=== PATIENT | female | born 1960 | race Caucasian/White ===

== ENCOUNTER 2022-02-07 00:58 | Emergency (ER) | payer MEDICARE, OTHER, SELFPAY ==
[2022-02-07 01:12] VITALS: BP 127/74; PULSE 60; RESP 18; TEMP 36.8; O2SAT 96
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
[2022-02-07] MEDS: GABAPENTIN 100 MG CAPSULE 200 MG PO (01:55)
== END 2022-02-07 02:16 | disposition home or self-care (01) ==
PROVIDERS: Emergency Provider Family Medicine; PCP Family Medicine
DX: M54.59 Other low back pain (principal); M79.605 Pain in left leg
CPT/HCPCS: 99283; 99284; A9270

== ENCOUNTER 2022-03-03 01:41 | Emergency (ER) | payer MEDICARE, OTHER, SELFPAY ==
[2022-03-03 01:49] VITALS: BP 113/72; PULSE 60; RESP 16; TEMP 35.7; O2SAT 96
[2022-03-03 02:52] LABS: Appearance Urine Slightly Cloudy (Clear); Bilirubin Urine Negative (Negative); Blood Urine 1+ (Negative); Color Urine Yellow (Yellow); Glucose Urine Negative (Negative); Ketones Urine Negative (Negative); Leukocyte Esterase Urine 1+ (Negative); Nitrite Urine Positive (Negative); Protein Urine Negative (Negative); Specific Gravity Urine 1.015 (1.000-1.030); Urobilinogen Urine 0.2 (0.2-1.0)
[2022-03-03 03:01] LABS: Amorphous Sediment Urine Few; Bacteria Urine Many; Mucus Urine Few; Squamous Epithelial Cell Urine Moderate (None-Few); WBC Urine 25-50 (0-5)
[2022-03-03 03:06] VITALS: BP 131/64; PULSE 62; RESP 16; O2SAT 98
--- NOTE | 2022-03-03 03:09 | ED.FEMALEGU ---
HPI - Female Genitourinary General Time Seen by Provider: 02:00 Date Seen: 03/03/22 Chief complaint: Flank Pain Stated complaint: possible UTI Time Seen by Provider: 03/03/22 02:11 Source: patient, RN notes reviewed and old records reviewed Mode of arrival: ambulatory Limitations: no limitations History of Present Illness HPI Narrative: Oma is a very pleasant 61-year-old a history of chronic pain on multiple pain medications who comes to the emergency room for evaluation regarding dysuria. Patient had he has had multiple UTIs in the past but not any for quite some time. For the past few days she has noticed that there has been a burning sensation when she urinates. Head is it has been coming and going. However yesterday it became fairly constant and is now radiating into both sides of her lower back. She has not had fever or chills and denies vomiting or nausea. She states that yesterday she started on AZO and felt that it really helped. But overnight she now has increasing symptoms. MD elicited complaint: dysuria Related Data Home Medications Medication Instructions Recorded Confirmed amitriptyline 10 mg tablet 20 mg PO DAILY 02/07/22 02/07/22 amlodipine 2.5 mg tablet 2.5 mg PO DAILY 02/07/22 02/07/22 buspirone 15 mg tablet 15 mg PO BID 02/07/22 02/07/22 clonazepam 0.5 mg tablet 0.5 mg PO HS 02/07/22 02/07/22 fentanyl 12 mcg/hr transdermal 1 patch transdermal Q72H 02/07/22 02/07/22 patch fentanyl 25 mcg/hr transdermal 1 patch transdermal Q72H 02/07/22 02/07/22 patch ferrous sulfate 325 mg (65 mg 325 mg PO DAILY 02/07/22 02/07/22 iron) tablet,delayed release gabapentin 100 mg capsule 100 mg PO HS 02/07/22 02/07/22 hydrocodone 5 mg-acetaminophen 325 1 tab PO Q6H PRN 02/07/22 02/07/22 mg tablet omeprazole 20 mg capsule,delayed 20 mg PO DAILY 02/07/22 02/07/22 release pramipexole 0.5 mg tablet 0.5 mg PO HS 02/07/22 02/07/22 sertraline 100 mg tablet 200 mg PO DAILY 02/07/22 02/07/22 Allergies Allergy/AdvReac Type Severity Reaction Status Date / Time erythromycin base AdvReac Mild Verified 02/07/22 01:18 [facility] Medical History (Updated 03/03/22 @ 03:01 by Stephanie Rich MD) Anxiety Chronic constipation Chronic fatigue Dog bite Fibromyalgia syndrome GERD (gastroesophageal reflux disease) MDD (major depressive disorder) Musculoskeletal back pain Musculoskeletal pain Obstructive sleep apnea Panic attack RLS (restless legs syndrome) Shoulder pain Surgical History (Updated 02/07/22 @ 02:10 by Roula Miller RN) H/O vaginal hysterectomy S/P cervical spinal fusion Social History Smoking Status: Never smoker Do you use any of these nicotine containing products: None Second hand tobacco smoke exposure: No Non-prescribed substance use: denies use Exam Const: Vital Signs, click to edit/add: Vital Signs - 24 hr 03/03/22 01:49 03/03/22 03:06 Temperature 96.2 F L Pulse Rate [Right Pulse Oximeter] 60 62 Respiratory Rate 16 16 Blood Pressure [Le ft Upper Arm] 113/72 131/64 Pulse Oximetry 96 98 Oxygen Delivery Me thod Room Air Room Air Documenting provider has reviewed patient's vital signs: yes Common normals: no apparent distress, average body habitus, oriented x3, no limitations and healthy appearing HENMT: Common normals: normocephalic Head and scalp: normocephalic Eye: General eye: normal appearance of both eyes Neck & C-Spine: Common normals: full ROM Resp: Common normals: normal respiratory effort and clear to auscultation bilaterally Effort & inspection: able to speak in complete sentences Auscultation: clear to auscultation bilaterally Cardio: Common normals: regular rate and regular rhythm Rate: regular rate Rhythm: regular rhythm GI: Common normals: soft to palpation and non-tender Palpation: soft : Common normals: no CVA tenderness Bladder/kidney exam: no CVA tenderness Back & Pelvis: Common normals: no CVA tenderness Extremity: Common normals: normal to inspection Neuro: Common normals: oriented x3 Psych: Common normals: mental status grossly normal Course Course Hospital Course: At this time patient does not appear to be toxic. Recommending urinalysis with appropriate antibiotic treatment if needed. Reevaluation(s) Reevaluation #1: Discussed with patient that urinalysis is positive for urinary tract infection and I would like to treat her with antibiotics. She is currently on probiotics and I suggest she continue taking those. Vital Signs Vital signs: Initial Vital Signs Temperature 96.2 F L 03/03/22 01:49 Temperature Source Temporal Artery Scan 03/03/22 01:49 Pulse Rate 60 03/03/22 01:49 Pulse Rhythm 03/03/22 01:49 Respiratory Rate 16 03/03/22 01:49 Blood Pressure 113/72 03/03/22 01:49 Blood Pressure Mean 85 03/03/22 01:49 Blood Pressure Position Semi-Fowlers 03/03/22 01:49 Pulse Oximetry 96 03/03/22 01:49 Oxygen Delivery Method 03/03/22 01:49 Vital Signs Temperature 96.2 F L 03/03/22 01:49 Pulse Rate 60 03/03/22 01:49 Respiratory Rate 16 03/03/22 01:49 Blood Pressure 113/72 03/03/22 01:49 Pulse Oximetry 96 03/03/22 01:49 Oxygen Delivery Method 03/03/22 01:49 Temperature 96.2 F L 03/03/22 01:49 Pulse Rate 62 03/03/22 03:06 Respiratory Rate 16 03/03/22 03:06 Blood Pressure 131/64 03/03/22 03:06 Pulse Oximetry 98 03/03/22 03:06 Oxygen Delivery Method 03/03/22 03:06 MDM - Female Genitourinary MDM Narrative Medical decision making narrative: 1. Urinary tract infection-patient will be treated with Macrobid 100 mg p.o. b.i.d. x5 days. This was given through our [employer] machine. Recommend pushing fluids to flush urinary tract. Return to the emergency room for vomiting, fever, worsening symptoms. Await urine culture to ensure appropriate antibiotic selection. 2. Disposition-home this evening. Follow-up as needed. Medical Records Attestation: I reviewed the patient's medical records. Lab Data Attestation: I reviewed the patient's lab results. Labs: Lab Results 03/03/22 Range/Units 02:45 Urine Color Yellow (Yellow) Urine Appearance Slightly Cloudy A (Clear) Urine pH 6.0 (5.0-8.5) Ur Specific [place] 1.015 (1.000-1.030) Urine Protein Negative (Negative) Urine Glucose (UA) Negative (Negative) Urine Ketones Negative (Negative) Urine Blood 1+ A (Negative) Urine Nitrite Positive A (Negative) Urine Bilirubin Negative (Negative) Urine Urobilinogen 0.2 (0.2-1.0) Ur Leukocyte Esterase 1+ A (Negative) Urine RBC 2-5 A (0-2) Urine WBC 25-50 A (0-5) Ur Squamous Epith Cells Moderate A (None-Few) Amorphous Sediment Few A (None) Urine Bacteria Many A (None) Urine Mucus Few A (None) Discharge Plan Discharge Clinical Impression: UTI (urinary tract infection) Patient Disposition: Home, Self-Care Condition: Unchanged Additional Instructions: Start Macrobid tonight and continue for 5 days. Push fluids to ensure that your flushing the urinary system. Return to the emergency room for fever, vomiting or worsening symptoms. If the culture grows out something that is not susceptible or killed by Macrobid we will call you and change her antibiotic. Prescriptions: No Action hydrocodone-acetaminophen 5-325 mg tablet 1 tab PO Q6H PRN Label Comments: TAKE ONE TABLET BY MOUTH EVERY FOUR TO SIX HOURS NEEDED FOR CHRONIC PAIN. DO NOT EXCEED 3 TABLETS IN 24 HOURS; must last 30 days. USE DAE clonazepam 0.5 mg tablet 0.5 mg PO HS Label Comments: TAKE ONE TABLET BY MOUTH ONE TIME DAILY AT BEDTIME sertraline 100 mg tablet 200 mg PO DAILY Label Comments: TAKE TWO TABLETS BY MOUTH DAILY IN THE MORNING amlodipine 2.5 mg tablet 2.5 mg PO DAILY pramipexole 0.5 mg tablet 0.5 mg PO HS Label Comments: TAKE ONE TABLET BY MOUTH ONE TIME DAILY AT BEDTIME amitriptyline 10 mg tablet 20 mg PO DAILY Label Comments: TAKE TWO TABLETS BY MOUTH DAILY omeprazole 20 mg capsule,delayed release(DR/EC) 20 mg PO DAILY Label Comments: Take 1 Capsule (20 mg) by mouth once daily before a meal gabapentin 100 mg capsule 100 mg PO HS Label Comments: TAKE ONE CAPSULE BY MOUTH ONE TIME DAILY AT BEDTIME fentanyl 25 mcg/hr patch 72 hour 1 patch transdermal Q72H Label Comments: Apply 1 Patch on dry, clean, hairless skin every 72 hours. Use dates 01/17/2022-02/15/2022 ferrous sulfate 325 mg (65 mg iron) tablet,delayed release (DR/EC) 325 mg PO DAILY Label Comments: Take 1 Tablet (325 mg) by mouth once daily. buspirone 15 mg tablet 15 mg PO BID Label Comments: TAKE 1.5 TABLETS TWICE A DAY. fentanyl 12 mcg/hr patch 72 hour 1 patch transdermal Q72H Label Comments: APPLY 1 PATCH BY TRANSDERMAL ROUTE AND CHANGE EVERY 72 HOURS. USE DATES: 01/17/22-02/15/22 Follow Up/Referrals: Geno Mendoza DO [Primary Care Provider] - Stand Alone Forms: [facility] Info Instructions
== END 2022-03-03 03:08 | disposition home or self-care (01) ==
PROVIDERS: Emergency Provider Family Medicine; PCP Family Medicine
DX: N39.0 Urinary tract infection, site not specified (principal)
CPT/HCPCS: 81003; 81015; 87086; 87186; 99282; 99283; 99284

== ENCOUNTER 2022-04-09 16:06 | Emergency (ER) | payer MEDICARE, OTHER, SELFPAY ==
[2022-04-09 16:11] VITALS: BP 140/79; PULSE 95; RESP 16; TEMP 37.2; O2SAT 97; BMI 23.8
--- NOTE | 2022-04-09 16:34 | ED.SKABFB ---
HPI - Skin/Abscess/Foreign Bdy General Chief complaint: Skin/Abscess/Foreign Body Stated complaint: Boil on buttocks Time Seen by Provider: 04/09/22 16:16 History of Present Illness HPI narrative: This 61-year-old female comes in reporting some suspicion of an abscess or boil in the right upper buttock. These symptoms started a day or 2 ago. She states that there is a little bit of abdon colored drainage. She states that it is starting to have some pain but there is also and itchy or pruritic component to this area also. Related Data Home Medications Medication Instructions Recorded Confirmed amitriptyline 10 mg tablet 20 mg PO DAILY 02/07/22 02/07/22 amlodipine 2.5 mg tablet 2.5 mg PO DAILY 02/07/22 02/07/22 buspirone 15 mg tablet 15 mg PO BID 02/07/22 02/07/22 clonazepam 0.5 mg tablet 0.5 mg PO HS 02/07/22 02/07/22 fentanyl 12 mcg/hr transdermal 1 patch transdermal Q72H 02/07/22 02/07/22 patch fentanyl 25 mcg/hr transdermal 1 patch transdermal Q72H 02/07/22 02/07/22 patch ferrous sulfate 325 mg (65 mg 325 mg PO DAILY 02/07/22 02/07/22 iron) tablet,delayed release gabapentin 100 mg capsule 100 mg PO HS 02/07/22 02/07/22 hydrocodone 5 mg-acetaminophen 325 1 tab PO Q6H PRN 02/07/22 02/07/22 mg tablet omeprazole 20 mg capsule,delayed 20 mg PO DAILY 02/07/22 02/07/22 release pramipexole 0.5 mg tablet 0.5 mg PO HS 02/07/22 02/07/22 sertraline 100 mg tablet 200 mg PO DAILY 02/07/22 02/07/22 Previous Rx's Medication Instructions Recorded valacyclovir 1 gram tablet 1,000 mg PO TID #30 tabs 04/09/22 (Valtrex) Allergies Allergy/AdvReac Type Severity Reaction Status Date / Time erythromycin base AdvReac Mild Verified 02/07/22 01:18 Review of Systems Status of ROS: Reports: 10 or more systems reviewed and unremarkable except as noted in History and below Narrative: Constitutional: No fevers, no weight gain or loss. Eyes: No discharge. No vision changes. HENT: No congestion, no sore throat, no ear pain. Cardiovascular: No chest pain, no palpitations. Respiratory: No shortness of breath, no wheezes, no cough. Gastrointestinal: No abdominal pain, no vomiting, no diarrhea. Genitourinary: No dysuria, no hematuria. Musculoskeletal: Normal range of motion. Skin: Boil or abscess in the right upper mid buttock. Neurological: No dizziness, weakness, sensory change, speech change. Endo/Heme/Allergies: No bruising or bleeding. No polydipsia. Pysch: no suicidality, no anxiety, no insomnia. All other systems reviewed and are negative. [facility] Medical History (Updated 04/09/22 @ 16:40 by Bruno Dominguez MD) Anxiety Chronic constipation Chronic fatigue Dog bite Fibromyalgia syndrome GERD (gastroesophageal reflux disease) MDD (major depressive disorder) Musculoskeletal back pain Musculoskeletal pain Obstructive sleep apnea Panic attack RLS (restless legs syndrome) Shoulder pain Surgical History (Updated 02/07/22 @ 02:10 by Roula Miller RN) H/O vaginal hysterectomy S/P cervical spinal fusion Social History Smoking Status: Never smoker Do you use any of these nicotine containing products: None Second hand tobacco smoke exposure: No Non-prescribed substance use: denies use Exam Narrative: Exam Narrative: Constitutional: Well-developed, well-nourished, no acute distress. HEENT: Normocephalic, atraumatic. Neck: Normal range of motion. Nontender. Supple. Heart: Intact distal pulses. Lungs: No chest discomfort. No wheezes, rhonchi, or rales. Abdomen: Nontender. Back: Normal range of motion. Extremities: Normal range of motion. No injury. Skin: Just right of midline in the right upper buttock his some area of erythema with 3 or 4 spots with what may be come an ulceration or was a vesicular lesion that erupted. There is no palpable abscess. There is surrounding erythema. Neurologic: No altered sensation. No weakness. Alert and oriented. Psychiatric: No suicidality. No anxiety or depression. No insomnia. Nursing notes and vitals signs are reviewed. Const: Vital Signs, click to edit/add: Vital Signs - 24 hr 04/09/22 16:11 Temperature 98.9 F Pulse Rate [Left P ulse Oximeter] 95 Respiratory Rate 16 Blood Pressure [Ri ght Upper Arm] 140/79 H Pulse Oximetry 97 Oxygen Delivery Me thod Room Air Course Vital Signs Vital signs: Initial Vital Signs Temperature 98.9 F 04/09/22 16:11 Temperature Source Temporal Artery Scan 04/09/22 16:11 Pulse Rate 95 04/09/22 16:11 Pulse Rhythm 04/09/22 16:11 Pulse Strength 3+ Normal 04/09/22 16:11 Respiratory Rate 16 04/09/22 16:11 Blood Pressure 140/79 H 04/09/22 16:11 Blood Pressure Mean 99 04/09/22 16:11 Blood Pressure Position Sitting 04/09/22 16:11 Pulse Oximetry 97 04/09/22 16:11 Oxygen Delivery Method 04/09/22 16:11 Vital Signs Temperature 98.9 F 04/09/22 16:11 Pulse Rate 95 04/09/22 16:11 Respiratory Rate 16 04/09/22 16:11 Blood Pressure 140/79 H 04/09/22 16:11 Pulse Oximetry 97 04/09/22 16:11 Oxygen Delivery Method 04/09/22 16:11 Temperature 98.9 F 04/09/22 16:11 Pulse Rate 95 04/09/22 16:11 Respiratory Rate 16 04/09/22 16:11 Blood Pressure 140/79 H 04/09/22 16:11 Pulse Oximetry 97 04/09/22 16:11 Oxygen Delivery Method 04/09/22 16:11 MDM - Skin/Abscess/Foreign Bdy MDM Narrative Medical decision making narrative: This patient comes in with a lesion in her right buttock as described above. On exam it does not appear to be an abscess or boil. It actually is more suspicious for shingles. There are several lesions that are surrounded by erythema. These areas look to have drained and were possibly vesicles at 1 point. There is no drainable abscess. The patient states that this has a pruritic component to it and seems to be more likely herpes zoster. The patient received a prescription for Valtrex. I stated that symptoms may become more clear as to what is causing this reaction but for now it seems more likely to be a viral lesion from shingles. She is advised to follow-up with her primary physician or return here if worsening symptoms occur. Discharge Plan Discharge Clinical Impression: Godwin Patient Disposition: Home, Self-Care Condition: Stable Additional Instructions: Take medication as prescribed. Follow up with MD if not improving or worsening symptoms happen. Prescriptions: New valacyclovir [Valtrex] 1 gram tablet 1,000 mg PO TID Qty: 30 2RF No Action hydrocodone-acetaminophen 5-325 mg tablet 1 tab PO Q6H PRN Label Comments: TAKE ONE TABLET BY MOUTH EVERY FOUR TO SIX HOURS NEEDED FOR CHRONIC PAIN. DO NOT EXCEED 3 TABLETS IN 24 HOURS; must last 30 days. USE DAE clonazepam 0.5 mg tablet 0.5 mg PO HS Label Comments: TAKE ONE TABLET BY MOUTH ONE TIME DAILY AT BEDTIME sertraline 100 mg tablet 200 mg PO DAILY Label Comments: TAKE TWO TABLETS BY MOUTH DAILY IN THE MORNING amlodipine 2.5 mg tablet 2.5 mg PO DAILY pramipexole 0.5 mg tablet 0.5 mg PO HS Label Comments: TAKE ONE TABLET BY MOUTH ONE TIME DAILY AT BEDTIME amitriptyline 10 mg tablet 20 mg PO DAILY Label Comments: TAKE TWO TABLETS BY MOUTH DAILY omeprazole 20 mg capsule,delayed release(DR/EC) 20 mg PO DAILY Label Comments: Take 1 Capsule (20 mg) by mouth once daily before a meal gabapentin 100 mg capsule 100 mg PO HS Label Comments: TAKE ONE CAPSULE BY MOUTH ONE TIME DAILY AT BEDTIME fentanyl 25 mcg/hr patch 72 hour 1 patch transdermal Q72H Label Comments: Apply 1 Patch on dry, clean, hairless skin every 72 hours. Use dates 01/17/2022-02/15/2022 ferrous sulfate 325 mg (65 mg iron) tablet,delayed release (DR/EC) 325 mg PO DAILY Label Comments: Take 1 Tablet (325 mg) by mouth once daily. buspirone 15 mg tablet 15 mg PO BID Label Comments: TAKE 1.5 TABLETS TWICE A DAY. fentanyl 12 mcg/hr patch 72 hour 1 patch transdermal Q72H Label Comments: APPLY 1 PATCH BY TRANSDERMAL ROUTE AND CHANGE EVERY 72 HOURS. USE DATES: 01/17/22-02/15/22 Follow Up/Referrals: Geno Mendoza DO [Primary Care Provider] - Stand Alone Forms: [facility] Info Instructions
== END 2022-04-09 16:55 | disposition home or self-care (01) ==
LOC: ED 16:51
PROVIDERS: Emergency Provider Emergency Medicine Emergency Medical Services; PCP Family Medicine
DX: B02.9 Zoster without complications (principal)
CPT/HCPCS: 99284

== ENCOUNTER 2022-04-19 15:01 | Emergency (ER) | payer MEDICARE, OTHER, SELFPAY ==
[2022-04-19 15:15] VITALS: BP 140/73; PULSE 99; RESP 18; TEMP 36.8; O2SAT 95; BMI 26.5
--- NOTE | 2022-04-19 16:01 | ED_ITS ---
HPI - General Adult General Time Seen by Provider: 16:01 Date Seen: 04/19/22 Chief complaint: Lower Extremity Swelling Stated complaint: Burning leg pain, swelling Time Seen by Provider: 04/19/22 15:58 Source: patient, RN notes reviewed and old records reviewed History of Present Illness HPI narrative: 61-year-old female who comes in today with bilateral foot swelling which she noticed today. She does not have any pain. She recently was diagnosed with shingles shingles and says that is better, she also had a shot. She denies chest pain or shortness of breath. She notes that she does get some swelling in her feet during the course the day but is today than she has noted in the past. She denies any leg pain, no current new medications although was on Valtrex and gabapentin for her shingles. No urinary symptoms. Related Data Home Medications Medication Instructions Recorded Confirmed amitriptyline 10 mg tablet 20 mg PO DAILY 02/07/22 02/07/22 amlodipine 2.5 mg tablet 2.5 mg PO DAILY 02/07/22 02/07/22 buspirone 15 mg tablet 15 mg PO BID 02/07/22 02/07/22 clonazepam 0.5 mg tablet 0.5 mg PO HS 02/07/22 02/07/22 fentanyl 12 mcg/hr transdermal 1 patch transdermal Q72H 02/07/22 02/07/22 patch fentanyl 25 mcg/hr transdermal 1 patch transdermal Q72H 02/07/22 02/07/22 patch ferrous sulfate 325 mg (65 mg 325 mg PO DAILY 02/07/22 02/07/22 iron) tablet,delayed release gabapentin 100 mg capsule 100 mg PO HS 02/07/22 02/07/22 hydrocodone 5 mg-acetaminophen 325 1 tab PO Q6H PRN 02/07/22 02/07/22 mg tablet omeprazole 20 mg capsule,delayed 20 mg PO DAILY 02/07/22 02/07/22 release pramipexole 0.5 mg tablet 0.5 mg PO HS 02/07/22 02/07/22 sertraline 100 mg tablet 200 mg PO DAILY 02/07/22 02/07/22 Previous Rx's Medication Instructions Recorded valacyclovir 1 gram tablet 1,000 mg PO TID #30 tabs 04/09/22 (Valtrex) Allergies Allergy/AdvReac Type Severity Reaction Status Date / Time erythromycin base AdvReac Mild Verified 02/07/22 01:18 Review of Systems Status of ROS: Reports: 10 or more systems reviewed and unremarkable except as noted in History and below [facility] Medical History (Updated 04/19/22 @ 17:30 by Jonn Mims MD) Anxiety Chronic constipation Chronic fatigue Dog bite Fibromyalgia syndrome GERD (gastroesophageal reflux disease) MDD (major depressive disorder) Musculoskeletal back pain Musculoskeletal pain Obstructive sleep apnea Panic attack RLS (restless legs syndrome) Shoulder pain Surgical History (Updated 02/07/22 @ 02:10 by Roula Miller RN) H/O vaginal hysterectomy S/P cervical spinal fusion Social History Smoking Status: Never smoker Do you use any of these nicotine containing products: None Second hand tobacco smoke exposure: No How often do you have a drink containing alcohol: never How often do you have six or more drinks on one occasion: Never AUDIT-C Alcohol total score: 0 Non-prescribed substance use: denies use Exam Narrative: Exam Narrative: General: Well-developed and well-nourished, no acute distress Head: Atraumatic and normocephalic Eyes: Pupils are equal reactive, extraocular motions intact, conjunctiva clear ENT: External nose and ears are normal, posterior pharynx without erythema or exudate Neck: No midline cervical tenderness, full spontaneous range of motion the neck, trachea midline, no adenopathy Heart: Regular rate and rhythm no murmurs or thrills Lungs: Clear to auscultation bilaterally without wheezes or crackles Abdomen: Soft, nontender, nondistended with active bowel sounds Musculoskeletal: No tenderness, deformity, bilateral pitting edema to the knees, right leg slightly larger than left Neurologic: Awake, alert, and oriented x3, no gross focal neurologic deficits, cranial nerves intact as tested Psych: Mood and affect are appropriate Skin: No rashes Const: Vital Signs, click to edit/add: Vital Signs - 24 hr 04/19/22 15:15 Temperature 98.2 F Pulse Rate [Right Pulse Oximeter] 99 Respiratory Rate 18 Blood Pressure [Le ft Upper Arm] 140/73 H Pulse Oximetry 95 Oxygen Delivery Me thod Room Air Course Course Hospital Course: Patient seen and examined, prior records are reviewed. Differential diagnosis includes but not limited to peripheral vascular disease, pulmonary embolism, heart failure, medication reaction, nephrotic syndrome, hypoalbuminemia. Patient presents with bilateral lower extremity swelling today. Trace pitting edema bilaterally to the mid cazares. Labs are ordered, also right leg ultrasound of this leg is slightly larger in circumference than the left. No breathing difficulty, chest pain, lungs are clear. Reevaluation(s) Reevaluation #1: Labs so far demonstrate mild leukopenia, renal function and liver function tests are reassuring. Patient is not yet given a urine sample. Ultrasound was not ordered initially and so patient is getting that done. If this is negative, patient will be given dietary instructions as well as general instructions for edema. Will defer diuretics at this time. Time: 17:27 Reevaluation #2: Ultrasound reported negative. Discussed conservative treatment of lower extremity swelling with the patient and stable for discharge. Time: 17:37 Vital Signs Vital signs: Initial Vital Signs Temperature 98.2 F 04/19/22 15:15 Temperature Source Oral 04/19/22 15:15 Pulse Rate 99 04/19/22 15:15 Pulse Rhythm 04/19/22 15:15 Respiratory Rate 18 04/19/22 15:15 Blood Pressure 140/73 H 04/19/22 15:15 Blood Pressure Mean 95 04/19/22 15:15 Blood Pressure Position Sitting 04/19/22 15:15 Pulse Oximetry 95 04/19/22 15:15 Oxygen Delivery Method 04/19/22 15:15 Vital Signs Temperature 98.2 F 04/19/22 15:15 Pulse Rate 99 04/19/22 15:15 Respiratory Rate 18 04/19/22 15:15 Blood Pressure 140/73 H 04/19/22 15:15 Pulse Oximetry 95 04/19/22 15:15 Oxygen Delivery Method 04/19/22 15:15 Temperature 98.2 F 04/19/22 15:15 Pulse Rate 99 04/19/22 15:15 Respiratory Rate 18 04/19/22 15:15 Blood Pressure 140/73 H 04/19/22 15:15 Pulse Oximetry 95 04/19/22 15:15 Oxygen Delivery Method 04/19/22 15:15 Medical Decision Making Medical Records Medical records reviewed: Yes I reviewed the patient's medical records Lab Data Lab results reviewed: Yes I reviewed the patient's lab results Labs: Lab Results 04/19/22 04/19/22 Range/Units 16:22 16:22 WBC 3.26 L (4.50-11.00) K/uL RBC 3.98 L (4.00-5.20) m/uL Hgb 12.0 (12.0-16.0) gm/dL Hct 36.7 (33.0-51.0) % MCV 92 (80-100) fL MCH 30 (26-34) pg MCHC 33 (32-36) gm/dL RDW Coeff of Marian 13.5 (11.5-15.5) % Plt Count 198 (140-440) K/uL Neut % (Auto) 61.1 (42.0-72.0) % Lymph % (Auto) 24.8 (20-44) % [place] % (Auto) 10.7 (0.0-11.0) % Eos % (Auto) 2.8 (0.0-7.0) % Baso % (Auto) 0.6 (0.0-3.0) % Neut # (Auto) 2.00 (1.7-7.0) K/uL Lymph # (Auto) 0.80 L (0.90-2.90) K/uL [place] # (Auto) 0.30 (0.00-0.90) K/UL Eos # (Auto) 0.10 (0.00-0.50) K/uL Baso # (Auto) 0.00 (0.00-0.30) K/uL Abs Immat Gran (auto) 0.00 (0.00-0.30) K/uL Sodium 139 (135-149) mmol/L Potassium 3.8 (3.6-5.1) mmol/L Chloride 101 (96-114) mmol/L Carbon Dioxide 30 (20-32) mmol/L BUN 20 (7-30) mg/dL Creatinine 0.8 (0.5-1.5) mg/dL Estimated Creat Clear 44.02 Estimated GFR 83 ml/min Glucose 95 (60-115) mg/dL Calcium 8.7 (8.4-10.6) mg/dL Total Bilirubin 0.3 (0.1-1.5) mg/dL Direct Bilirubin 0.2 (0.0-0.5) mg/dL AST 26 (12-35) U/L ALT 13 (4-35) U/L Alkaline Phosphatase 89 (40-150) U/L NT-Pro-B Natriuret Pep 44 (0-125) PG/mL Total Protein 7.5 (6.0-8.3) g/dL Albumin 4.3 (3.3-5.0) g/dL Discharge Plan Discharge Clinical Impression: Bilateral lower extremity edema Patient Disposition: Home, Self-Care Condition: Stable Instructions: Leg Edema (ED) Additional Instructions: Elevate your legs as able. Decreased sodium intake. Follow-up with your primary care doctor this week or next week. Amlodipine (Norvasc) can cause swelling. Continue taking this for now but if swelling does not improve with conservative measures, consider stopping this in consultation with your primary care doctor. Activity Level: No Restrictions Discharge Diet: Other Diet Detail: Low-sodium Prescriptions: No Action hydrocodone-acetaminophen 5-325 mg tablet 1 tab PO Q6H PRN Label Comments: TAKE ONE TABLET BY MOUTH EVERY FOUR TO SIX HOURS NEEDED FOR CHRONIC PAIN. DO NOT EXCEED 3 TABLETS IN 24 HOURS; must last 30 days. USE DAE clonazepam 0.5 mg tablet 0.5 mg PO HS Label Comments: TAKE ONE TABLET BY MOUTH ONE TIME DAILY AT BEDTIME sertraline 100 mg tablet 200 mg PO DAILY Label Comments: TAKE TWO TABLETS BY MOUTH DAILY IN THE MORNING amlodipine 2.5 mg tablet 2.5 mg PO DAILY pramipexole 0.5 mg tablet 0.5 mg PO HS Label Comments: TAKE ONE TABLET BY MOUTH ONE TIME DAILY AT BEDTIME amitriptyline 10 mg tablet 20 mg PO DAILY Label Comments: TAKE TWO TABLETS BY MOUTH DAILY omeprazole 20 mg capsule,delayed release(DR/EC) 20 mg PO DAILY Label Comments: Take 1 Capsule (20 mg) by mouth once daily before a meal gabapentin 100 mg capsule 100 mg PO HS Label Comments: TAKE ONE CAPSULE BY MOUTH ONE TIME DAILY AT BEDTIME fentanyl 25 mcg/hr patch 72 hour 1 patch transdermal Q72H Label Comments: Apply 1 Patch on dry, clean, hairless skin every 72 hours. Use dates 01/17/2022-02/15/2022 ferrous sulfate 325 mg (65 mg iron) tablet,delayed release (DR/EC) 325 mg PO DAILY Label Comments: Take 1 Tablet (325 mg) by mouth once daily. buspirone 15 mg tablet 15 mg PO BID Label Comments: TAKE 1.5 TABLETS TWICE A DAY. fentanyl 12 mcg/hr patch 72 hour 1 patch transdermal Q72H Label Comments: APPLY 1 PATCH BY TRANSDERMAL ROUTE AND CHANGE EVERY 72 HOURS. USE DATES: 01/17/22-02/15/22 valacyclovir [Valtrex] 1 gram tablet 1,000 mg PO TID Qty: 30 2RF Follow Up/Referrals: Geno Mendoza DO [Primary Care Provider] - Stand Alone Forms: [facility] Info Instructions
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
--- OUTSIDE RECORDS SUMMARY | 2022-04-19 16:15 | XMS_ITS | Encounter Summary ---
:1960 Author Organization [facility] Address [address] [place] [address] Care Team Providers Name Role Phone Elsewhere, Pcp Primary Care Provider Unavailable Encounter Details Date Type Department Care Team Description 03/19/2021 Hospital Encounter Department of Julian Taylor Admini strative Purpose Laboratory Medicine M.D. Exam in [address] [address] [place], [place] [phone] (Work) [phone] Social History Tobacco Use Types Packs/Day Years Used Date Smoking Tobacco: Never Sex Assigned at Date Recorded Not on file documented as of this encounter Medications at Time of Discharge Medication Sig Dispensed Refills Start Date End Date amitriptyline (ELAVIL) 50 Take 0.25 tablets by 0 12/17/2014 mg tablet mouth at bedtime. amLODIPine (NORVASC) 2.5 Take 2.5 mg by 0 12/11/2 021 mg tablet mouth. biotin (MERIBIN) 5 mg Take 2 capsules by 0 2012 capsule mouth as needed. Boric Acid 600 mg capsule Insert 1 capsule 14 capsule 11 11/2017 (600 mg total) into the vagina daily. For 14 days busPIRone (BUSPAR) 15 mg Take 1.5 TABLETS BY 0 tablet MOUTH TWICE DAILY cholecalciferol (VITAMIN Take 1 capsule by 0 07/2012 D3) 1,000 Unit capsule mouth daily. clonazePAM (KlonoPIN) 0.5 Take 0.5 mg by mouth 0 12/29/2020 mg tablet at bedtime. desvenlafaxine (PRISTIQ) Take 1 tablet by 0 01/23 50 mg 24 hr tablet mouth daily. dextroamphetamine Take 10 mg by mouth 0 3 (DEXTROSTAT) 10 mg tablet daily. Take 20 mg daily. dextroamphetamine/amphetam Take 0.5 tablets by 0 01/23/2015 ine (ADDERALL ORAL) mouth 3 (three) times a day as needed. prn docusate sodium (COLACE) Take 100 mg by 0 016 100 mg capsule mouth. ESTRADIOL TD Place 1 patch on the 0 04/30/2013 skin once a week. fentaNYL (DURAGESIC) 12 APPLY 1 PATCH BY 0 2020 mcg/hr patch TRANSDERMAL ROUTE AND CHANGE EVERY 72 HOURS. USE DATES: 01/14/2021 - 02/12/2021 fentaNYL (DURAGESIC) 25 Apply 1 patch by 0 2020 mcg/hr patch transdermal route and change a new patch every 3 days. USE DATES: 01/14/2021 - 02/12/2021 gabapentin (NEURONTIN) 600 Take 3 tablets by 0 mg tablet mouth 3 (three) times a day. HYDROcodone-acetaminophen Take 1 tablet every 0 0 12/11/2020 (NORCO) 5-325 mg per 4 to 6 hours as tablet needed for pain (max 3 tablets per day) use dates: 12/10/2020-01/08/2021 HYDROCODONE-ACETAMINOPHEN Take 1-2 tablets by 0 1 ORAL mouth. Vicodin 5-500 mg tab . Pain; do not exceed 8 tablets per day. LORazepam (ATIVAN) 1 mg Take 0.5 tablets by 0 tablet mouth as needed. P.r.n. midazolam (VERSED) 1 mg/mL Infuse 0.5-6 mg into 0 10/09/2020 injection a venous catheter. naloxone (NARCAN) 4 Administer into 0 05/10/2019 mg/actuation nasal spray nostril(s). naproxen (NAPROSYN) 250 mg TAKE ONE TABLET BY 0 0 11/12/2020 tablet MOUTH TWICE DAILY WITH MEALS NEEDED omeprazole (PriLOSEC) 20 TAKE ONE CAPSULE BY [address] capsule MOUTH ONE TIME DAILY before a meal pramipexole (MIRAPEX) 0.5 Take 0.5 mg by mouth 0 01/13/2021 mg tablet at bedtime. sertraline (ZOLOFT) 100 mg Take 200 mg by mouth 0 01/10/2021 tablet every morning. documented as of this encounter Plan of Treatment Not on filedocumented as of this encounter Visit Diagnoses Diagnosis Administrative Purpose Exam documented in this encounter Additional Health Concerns Assessment Noted Time PHQ-9 Depression Total Score: 19 06/26/2013 9:47 AM CS T documented as of this encounter Care Teams Trumpet Player Relationship Specialty Start Date End Date Elsewhere, Pcp PCP - General Family Medicine 03/19/21 documented as of this encounter
--- OUTSIDE RECORDS SUMMARY | 2022-04-19 16:15 | XMS_ITS | Clinical Summary ---
:1960 Author Organization [facility] Address [address] [place] [address] Care Team Providers Name Role Phone Elsewhere, Pcp Primary Care Provider Unavailable Source Comments Patient records contain information from all sites at [facility]. For routine questions regarding patient records, call [phone] during business hours, M-F 8:00 AM - 5:00 PM Central Time. Record requests for emergency care only can be directed to [phone] at any time.[facility] Allergies Active Allergy Reactions Severity Noted Date Comments Azithromycin Other (see comments) 08/05/2015 Bupropion Anxiety 04/30/2013 Medications Medication Sig Dispensed Refills Start Date End Date Status gabapentin (NEURONTIN) Take 3 tablets 0 02/04/2016 Active 600 mg tablet by mouth 3 (three) times a day. LORazepam (ATIVAN) 1 mg Take 0.5 0 01/23/2015 Active tablet tablets by mouth as needed. P.r.n. desvenlafaxine (PRISTIQ) Take 1 tablet 0 01/23/2015 Active 50 mg 24 hr tablet by mouth daily. dextroamphetamine/amphet Take 0.5 0 01/23/2015 Active amine (ADDERALL ORAL) tablets by mouth 3 (three) times a day as needed. prn amitriptyline (ELAVIL) Take 0.25 0 12/17/2014 Active 50 mg tablet tablets by mouth at bedtime. biotin (MERIBIN) 5 mg Take 2 capsules 0 06/26/2013 Active capsule by mouth as needed. HYDROCODONE-ACETAMINOPHE Take 1-2 0 04/30/2013 Active N ORAL tablets by mouth. Vicodin 5-500 mg tab . Pain; do not exceed 8 tablets per day. dextroamphetamine Take 10 mg by 0 04/30/2013 Active (DEXTROSTAT) 10 mg mouth daily. tablet Take 20 mg daily. ESTRADIOL TD Place 1 patch 0 04/30/2013 Ac tive on the skin once a week. cholecalciferol (VITAMIN Take 1 capsule 0 04/30/2013 Active D3) 1,000 Unit capsule by mouth daily. Boric Acid 600 mg Insert 1 14 capsule 11 06/04/2018 Active capsule capsule (600 mg total) into the vagina daily. For 14 days Additional Information Patient not taking. Reported on 01/25/2021 amLODIPine (NORVASC) 2.5 mg Take 2.5 mg by mouth. 0 12/11/2020 Active tablet busPIRone (BUSPAR) 15 mg tablet Take 1.5 TABLETS BY MOUTH 0 01/10/2021 Active TWICE DAILY clonazePAM (KlonoPIN) 0.5 mg Take 0.5 mg by mouth at 0 12/29/2020 Active tablet bedtime. docusate sodium (COLACE) 100 mg Take 100 mg by mouth. 0 01/18/2016 Active capsule fentaNYL (DURAGESIC) 12 mcg/hr APPLY 1 PATCH BY TRANSDERMAL 0 01/14/2021 Active patch ROUTE AND CHANGE EVERY 72 HOURS. USE DATES: 01/14/2021 - 02/12/2021 fentaNYL (DURAGESIC) 25 mcg/hr Apply 1 patch by transdermal 0 01/14/2021 Active patch route and change a new patch every 3 days. USE DATES: 01/14/2021 - 02/12/2021 midazolam (VERSED) 1 mg/mL Infuse 0.5-6 mg into a venous 0 10/09/2020 Active injection catheter. naloxone (NARCAN) 4 Administer into nostril(s). 0 Active mg/actuation nasal spray naproxen (NAPROSYN) 250 mg TAKE ONE TABLET BY MOUTH TWICE 0 11/12/2020 Active tablet DAILY WITH MEALS NEEDED omeprazole (PriLOSEC) [address] TAKE ONE CAPSULE BY MOUTH ONE 0 12/11/2020 Active capsule TIME DAILY before a meal pramipexole (MIRAPEX) 0.5 mg Take 0.5 mg by mouth at 0 01/13/2021 Active tablet bedtime. sertraline (ZOLOFT) 100 mg Take 200 mg by mouth every 0 01/10/2021 Active tablet morning. HYDROcodone-acetaminophen Take 1 tablet every 4 to 6 0 12/11/2020 Active (NORCO) 5-325 mg per tablet hours as needed for pain (max 3 tablets per day) use dates: 12/10/2020-01/08/2021 Active Problems No known active problems Social History Tobacco Use Types Packs/Day Years Used Date Smoking Tobacco: Never Sex Assigned at Date Recorded Not on file Last Filed Vital Signs Vital Sign Reading Time Taken Comments Blood Pressure 132/79 03/19/2021 9:46 AM CDT Pulse 65 03/19/2021 9:46 AM CDT Temperature 36.5 ??C (97.7 ??F) 03/19/2021 9:46 AM CDT Respiratory Rate 20 03/19/2021 9:46 AM CDT Oxygen Saturation 95% 03/19/2021 9:46 AM CDT Inhaled Oxygen Concentration - - Weight 62.9 kg (138 lb 10.7 oz) 03/19/2021 9:48 AM CDT Height 157.5 cm (5' 2) 03/19/2021 9:48 AM CDT Body Mass Index 25.36 03/19/2021 9:48 AM CDT Plan of Treatment Health Maintenance Due Date Last Done Comments CT Colonography 1960 Cologuard 1960 Colonoscopy 1960 Colorectal Cancer Screening 1960 Controlled Substance 1960 Agreement Controlled Substance 1960 Monitoring FIT 1960 Generalized Anxiety (AYESHA-7) 1960 Hepatitis C Screening 1959 Lipid (Cholesterol) 1960 Screening Mammogram 1960 Zoster Vaccines (2 of 3) 12/25/2012 10/30/2012 Controlled Substance 01/22/2021 Monitoring (PHQ-9) Opioid Risk Assessment 01/22/2021 PEG assessment for Opioid 01/22/2021 therapy Depression Screening 07/31/2021 (Annual PHQ-2) COVID-19 Vaccine (3 - 09/09/2021 07/15/2021, 12/06/2020 Booster for Leslye series) Influenza Vaccine (#1) 2022 04/20/2021, 06/15/2020, 04/23/2019, Additional history exists Fasting Glucose for 08/13/2024 08/13/2021, 07/15/2020, Diabetes Screening 05/31/2019, Additional history exists DTaP,Tdap,and Td Vaccines 02/09/2025 02/09/2015, 12/20/2011 (3 - Td or Tdap) HIV Screening Completed 12/29/2015 Pneumococcal vaccine (0-64 Aged Out No lo nger eligible years) based on patient 's age to complete this topic Insurance Payer Benefit Plan / Subscriber ID Effective Phone Address T ype Group Dates MEDICARE MEDICARE A AND [id number] 2009-Prese [address] [place] [address] MEDICA MEDICA PRIME [id number] 2020-Prese [phone] [address] [email or web address] [address] [place] [address] (Home) [place] [phone] (Work) Oma Gutierrez Workers Comp Self [address] (Home) [place] [phone] (Work) 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
--- OUTSIDE RECORDS SUMMARY | 2022-04-19 16:16 | XMS_ITS | Encounter Summary ---
:1960 Author Organization [facility] Address [address] [place] [address] Care Team Providers Name Role Phone Unavailable Primary Care Provider Unavailable Encounter Details Date Type Department Care Team Description 04/03/2018 Orders Only Department of Infectious Gregorio Shafer M.D. Diseases in [address] [address] [place] [address] [phone] Social History Tobacco Use Types Packs/Day Years Used Date Smoking Tobacco: Never Sex Assigned at Date Recorded Not on file documented as of this encounter Plan of Treatment Not on filedocumented as of this encounter Visit Diagnoses Not on filedocumented in this encounter Additional Health Concerns Assessment Noted Time PHQ-9 Depression Total Score: 19 06/26/2013 9:47 AM CS T documented as of this encounter
--- OUTSIDE RECORDS SUMMARY | 2022-04-19 16:16 | XMS_ITS | Encounter Summary ---
:1960 Author Organization [facility] Address [address] [place] [address] Care Team Providers Name Role Phone Unavailable Primary Care Provider Unavailable Encounter Details Date Type Department Care Team Description 11/24/2020 Orders Only [facility] PCP TH Sa roberto Carter M.D. [address] [place] [address] [phone] (Wo rk) Social History Tobacco Use Types Packs/Day Years [...]
--- OUTSIDE RECORDS SUMMARY | 2022-04-19 16:16 | XMS_ITS | Encounter Summary ---
:1960 Author Organization [facility] Address [address] [place] [address] Care Team Providers Name Role Phone Unavailable Primary Care Provider Unavailable Reason for Referral Outpatient (Routine) - Closed Specialty Diagnoses / Procedures Referred By Contact Refer red To Contact Infectious Diseases Gregorio Alcantara M.D . [address] [address] Referral ID Status Reason Start Date Expiration Date Visits Requ ested Visits Authorized [id number] Closed 04/04/2018 04/04/2019 1 1 Encounter Details Date Type Department Care Team Description 04/04/2018 Orders Only Department of Infectious Gregorio Shafer M.D. Diseases in [address] [address] [place] [address] [phone] Social History Tobacco Use Types Packs/Day Years Used Date Smoking Tobacco: Never Sex Assigned at Date Recorded Not on file documented as of this encounter Plan of Treatment Scheduled Referrals Name Type Priority Associated Order Schedule Diagnoses Infectious Diseases Outpatient Referral Routine E xpected: office visit 04/04/2018 (clinic) - BARB (Approximate) , Expires: 04/04/2021 documented as of this encounter Visit Diagnoses Not on filedocumented in this encounter Additional Health Concerns Assessment Noted Time PHQ-9 Depression Total Score: 19 06/26/2013 9:47 AM CS T documented as of this encounter
--- OUTSIDE RECORDS SUMMARY | 2022-04-19 16:16 | XMS_ITS | Encounter Summary ---
:[address] [facility] Address [address] [place] [address] Care Team Providers Name Role Phone Unavailable Primary Care Provider Unavailable Encounter Details Date Type Department Care Team Description 10/15/2020 Hospital Encounter Department of Julian Taylor Admini strative Purpose Laboratory Medicine M.D. Exam in [address] [address] [place], [place] [phone] [phone] (Work) [phone] Social History Tobacco Use Types Packs/Day Years Used Date Smoking Tobacco: Never Sex Assigned at Date Recorded Not on file documented as of this encounter Medications at Time of Discharge Medication Sig Dispensed Refills Start Date End Date amitriptyline (ELAVIL) 50 Take 0.25 tablets 0 mg tablet by mouth at bedtime. biotin (MERIBIN) 5 mg Take 2 capsules by 0 2012 capsule mouth as needed. Boric Acid 600 mg capsule Insert 1 capsule 14 capsule 11 11/2017 (600 mg total) into the vagina daily. For 14 days cholecalciferol (VITAMIN Take 1 capsule by 0 07/2012 D3) 1,000 Unit capsule mouth daily. desvenlafaxine (PRISTIQ) Take 1 tablet by 0 01/23 50 mg 24 hr tablet mouth daily. dextroamphetamine Take 10 mg by mouth 0 3 (DEXTROSTAT) 10 mg tablet daily. Take 20 mg daily. dextroamphetamine/ampheta Take 0.5 tablets by 0 0 01/23/2015 mine (ADDERALL ORAL) mouth 3 (three) times a day as needed. prn docusate sodium (COLACE) Take 100 mg by 0 016 100 mg capsule mouth. ESTRADIOL TD Place 1 patch on 0 04/30/2013 the skin once a week. gabapentin (NEURONTIN) Take 3 tablets by 0 2015 600 mg tablet mouth 3 (three) times a day. HYDROCODONE-ACETAMINOPHEN Take 1-2 tablets by 0 1 ORAL mouth. Vicodin 5-500 mg tab . Pain; do not exceed 8 tablets per day. LORazepam (ATIVAN) 1 mg Take 0.5 tablets by 0 tablet mouth as needed. P.r.n. midazolam (VERSED) 1 Infuse 0.5-6 mg 0 10/09/2020 mg/mL injection into a venous catheter. naloxone (NARCAN) 4 Administer into 0 05/10/2019 mg/actuation nasal spray nostril(s). polycarbophil (REPLENS) Insert 1 0 04/30/2013 0 01/25/2021 vaginal gel application into the vagina as directed. As directed documented as of this encounter Plan of Treatment Not on filedocumented as of this encounter Visit Diagnoses Diagnosis Administrative Purpose Exam documented in this encounter Additional Health Concerns Assessment Noted Time PHQ-9 Depression Total Score: 19 06/26/2013 9:47 AM CS T documented as of this encounter
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
--- OUTSIDE RECORDS SUMMARY | 2022-04-19 16:16 | XMS_ITS | Encounter Summary ---
:1960 Author Organization [facility] Address [address] [place] [address] Care Team Providers Name Role Phone Unavailable Primary Care Provider Unavailable Encounter Details Date Type Department Care Team Description 04/16/2018 Orders Only Department of Infectious Gregorio Shafer M.D. Diseases in [address] [address] [place] [address] [phone] Social History Tobacco Use Types Packs/Day Years [...]
--- OUTSIDE RECORDS SUMMARY | 2022-04-19 16:16 | XMS_ITS | Encounter Summary ---
:1960 Author Organization [facility] Address [address] [place] [address] Care Team Providers Name Role Phone Unavailable Primary Care Provider Unavailable Encounter Details Date Type Department Care Team Description 04/18/2018 Abstract DATA ABSTRACTION Provider, Historical Social History Tobacco Use Types Packs/Day Years [...]
--- OUTSIDE RECORDS SUMMARY | 2022-04-19 16:16 | XMS_ITS | Encounter Summary ---
:1960 Author Organization [facility] Address [address] [place] [address] Care Team Providers Name Role Phone Unavailable Primary Care Provider Unavailable Reason for Visit Reason Comments review records Encounter Details Date Type Department Care Team Description 11/02/2020 Clinical Communication Section of Providerzane records Infectious Diseases Unknown in [place], [place] [address] [place] [phone] Social History Tobacco Use Types Packs/Day Years Used Date Smoking Tobacco: Never Sex Assigned at Date Recorded Not on file documented as of this encounter Miscellaneous Notes Telephone Encounter - Astrid Maldonado - 12/02/2020 9:48 AM CDT Spoke with patient, she is going to follow up with her primary care provider and call us back if sheneeds to schedule with us. Telephone Encounter - Maggy Cobos M.D. - 12/01/2020 5:21 PM CDT Patient can get vaginal cultures including fungal culture done by primary provider then have referral to infectious disease if needed. She could also be seen by street photographer in a new patient slot for vaginal discharge. Telephone Encounter - Astrid Maldonado - 12/01/2020 3:49 PM CDT Patient called us to schedule an appt. We have not seen her in the past from what I can see and her primary care provider has completed the cultures in the past and then referred her over to infectiousdisease from what patient was informing me. Please advise if it is appropriate for her to see us forthis and place appropriate orders if so. Thank you Telephone Encounter - Gina James - 11/04/2020 9:59 AM CDT Omastan Gutierrez 1960 Who filled out form: Patient Who requested evaluation: You (self-referred) Reason evaluation was requested: Still have this problem and there is a order from it Goals: 1) Hope to get rid of this disease 2) Get rid of order 3) Stop having to inject this pill in to me 4) Have a normal sex life if wanted to Symptoms/Concerns: 1) Order /smell 2) Drainage that leave a desiree of white discharged on panties 3) to get rid of this problem that I have had for many years and the Doctors would tell me that there is nothing wrong when I knew better. 4) to have a normal life with out a smell or order every day 5) to get rid of this forever MOST IMPORTANT: Symptom/Concern #3: 1) Order /smell Duration: More than 6 months Previous Eval: No Outcome: 2) Drainage that leave a desiree of white discharged on panties Duration: More than 6 months Previous Eval: Yes Outcome: 3) to get rid of this problem that I have had for many years and the Doctors would tell me that there is nothing wrong when I knew better. Duration: More than 6 months Previous Eval: Yes Outcome: 4) to have a normal life with out a smell or order every day Duration: More than 6 months Previous Eval: Yes Outcome: 5) to get rid of this forever Duration: More than 6 months Previous Eval: Yes Outcome: The doctor did a pap smear and check under his scope to see what was wrong and he told me what I have wrong and ordered Boric Acid to use every night for so long and see how this goes. but since my last appt with him he told me that he was leaving. Antibiotics? No Penicillin Allergy? No Number of medications currently taking? 14 Requested specialists: No Bothered by the following problems in last 2 weeks: (Scale: Not at all, Several Days, More than half the days, Nearly every day) Feeling nervous, anxious, or on edge: Several days Not being able to stop or control worrying : More than half the days Little interest or pleasure in doing things : Several days Feeling down, depressed, or hopeless: More than half the days OVERALL HEALTH: (Scale: Excellent, Very good, Good, Fair, Poor) Fair RADIOLOGY QUESTIONS: Iodine contrast reaction? No Gadolinium contrast reaction? Unsure Dialysis? No Urine or no urine output past 48 hours? No Implanted medical devices or pumps? No Implanted device? Organ transplant? No Bone marrow/stem cell transplant? No HIV/AIDS? No Diabetic? No TB? No Bone/joint infection referral? No REFERRED FOR URINARY TRACT INFECTION: I don't know Genitournary system surgery? Types and dates: Passed air in urine? Urinary system stones? Diagnosis date/describe treatment: Urinary catheter? Blood in urine? Constipation? Cystoscopy? Where and when: CT scan/ultrasound? Where and when: SEX ASSIGNED AT : FEMALE: Current menstrual cycles? When did they stop: Sexual intercourse pain? Systemic hormone replacement therapy? Estrogen/estradiol use? How long: Chronic pelvis pain? MALE: Prostate cancer? Treatment: Prostate enlargement/BPH? Treatment: Prostate infection/prostatitis? Treatment: REFERRED FOR UNEXPLAINED FEVERS: First occurence? How often? Progressed since onset? Maximum temperature recorded? How temperature was taken: Treatments attempted? Specialists evaluated? SCHEDULING QUESTIONS: I AM AVAILABLE ANYTIME Dates to avoid scheduling: PHONE: [phone] cell or home [phone] AGREE? I have read the Medical Emergency directions as noted above., I have read the Infectious Diseases Consultation Model of Care as noted above and agree to the process outlined. Telephone Encounter - Mecca Flores - 11/03/2020 2:17 PM CDT LM for pt to call so we can deny. She needs to be seen in [facility] and she can call them directly at [phone] 11/03 sd Telephone Encounter - Mecca Flores - 11/02/2020 12:45 PM CDT This patient was seen for vaginitis back in 2018 and still having same problems and wants an appt. Since it's been so long we have to treat as new but she hasn't been seeing an doctors locally so everything is in system from [facility]. Please advise. She will be filling out arf. documented in this encounter Plan of Treatment Not on filedocumented as of this encounter Visit Diagnoses Not on filedocumented in this encounter Additional Health Concerns Assessment Noted Time PHQ-9 Depression Total Score: 19 06/26/2013 9:47 AM CS T documented as of this encounter
--- OUTSIDE RECORDS SUMMARY | 2022-04-19 16:16 | XMS_ITS | Encounter Summary ---
:1960 Author Organization [facility] Address [address] [place] [address] Care Team Providers Name Role Phone Unavailable Primary Care Provider Unavailable Reason for Visit Outpatient (Routine) - Closed Specialty Diagnoses / Procedures Referred By Contact Refer red To Contact Infectious Diseases Gregorio Alcantara M.D . [facility] [address] [place] [address] Referral ID Status Reason Start Date Expiration Date Visits Requ ested Visits Authorized [id number] Closed 04/04/2018 04/04/2019 1 1 Encounter Details Date Type Department Care Team Description 06/04/2018 Office Visit Section of Infectious Gregorio Alcantara M.D. [address] [place] [address] Vaginitis Rebekah Diseases in [facility], Gina Crook P.A.-C. 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 - 06/04/2018 11:00 AM CST SUBJECTIVE CHIEF COMPLAINT/REASON FOR VISIT Followup for recurrent vaginitis HISTORY OF PRESENT ILLNESS Briefly, Ms. Gutierrez is a 57-year-old woman from [place], [place], with history of recurrent vaginitis since 2012. She was evaluated by Gynecology and treated with boric acid and intermittent Diflucan whichdid not provide much relief. She was referred to ID in November 2015. It was noted that multiple vaginal cultures grew Rebekah glabrata. She was treated with voriconazole; this provided some benefit from the vaginal discharge but not much change in the burning. She was seen again by Dr. Alcantara in January 2016. At that time, she had a pelvic exam by Gynecology. New cultures grew Rebekah glabrata and she hadno evidence of bacterial vaginosis. Urine culture was negative. She was prescribed flucytosine cream. The patient returns to ID clinic today for followup. She has continued to have intermittent symptomsof itching, burning and yellowish/whitish discharge. She never used the flucytosine cream due to thecost. She has been using boric acid intermittently over the past 2 years. When she starts to notice itching, she starts the boric acid and the symptoms resolve. She typically uses the boric acid 2-3x per month. She has occasional yellow of or white discharge. Her PCP has declined to prescribe the boric acid. REVIEW OF SYSTEMS Pertinent items are noted in HPI; all other review of systems was negative. OBJECTIVE Vitals: 06/04/18 1111 Temp: 36 ??C Weight: 58.7 kg TempSrc: Tympanic PHYSICAL EXAMINATION General: Sitting comfortably in exam room, no acute distress DIAGNOSTICS No new labs to review. ASSESSMENT / PLAN #1 Recurrent Rebekah glabrata vaginitis Ms. Gutierrez is a 57-year-old woman who has been treated for C. glabrata vaginitis in the past. She never took the prescribed flucytosine cream due to cost. She has been using the boric acid vaginal capsules a few times per month. We discussed that the implications for half-way use of the boric acid is unknown. For now, I have renewed this prescription since it is providing her with control of her symptoms. Additionally, I have encouraged the patient to take probiotics or Kefir on a daily basis. We cansee her back in ID clinic as needed. Dr. Sai Arenas is available for consultation. 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
--- OUTSIDE RECORDS SUMMARY | 2022-04-19 16:16 | XMS_ITS | Encounter Summary ---
:1960 Author Organization [facility] Address [address] [place] [address] Care Team Providers Name Role Phone Unavailable Primary Care Provider Unavailable Reason for Visit Reason Onset Date Comments Rx refill request 04/03/2018 Encounter Details Date Type Department Care Team Description 04/03/2018 Clinical Communication Section of Gregorio Alcantara Rx r efill request Infectious Diseases Alida Wright in [address] [place] [phone] Social History Tobacco Use Types Packs/Day Years Used Date Smoking Tobacco: Never Sex Assigned at Date Recorded Not on file documented as of this encounter Miscellaneous Notes Telephone Encounter - Gregorio Alcantara M.D. - 04/04/2018 1:06 PM CDT I ordered a follow up appointment. I think I signed the order Thank you Telephone Encounter - Dawn Humphreys - 04/03/2018 3:[address] Alcantara: Received a faxed Rx refill request today for a patient who has not been seen at [facility] for over two years. I have T'd up the refill request. Please advise if patient needs to be seen or if you will refill. Thank you, Dawn documented in this encounter Plan of Treatment Not on filedocumented as of this encounter Visit Diagnoses Not on filedocumented in this encounter Additional Health Concerns Assessment Noted Time PHQ-9 Depression Total Score: 19 06/26/2013 9:47 AM CS T documented as of this encounter
--- OUTSIDE RECORDS SUMMARY | 2022-04-19 16:16 | XMS_ITS | Encounter Summary ---
:1960 Author Organization [facility] Address [address] [place] [address] Care Team Providers Name Role Phone Unavailable Primary Care Provider Unavailable Reason for Referral Outpatient (Routine) - Closed Specialty Diagnoses / Procedures Referred By Contact Refer red To Contact Diagnoses Preplacement Exam Lee Ann Bhatt P.A.-C. [facility] Procedures OCC Drug screening [address] [place] [address] Referral ID Status Reason Start Date Expiration Date Visits Requ ested Visits Authorized [id number] Closed 01/08/2020 01/07/2021 1 1 Reason for Visit Reason Comments Labs Only Appointment Request (Routine) - Closed Specialty Diagnoses / Procedures Referred By Contact Refer red To Contact Occupational Medicine Referral ID Status Reason Start Date Expiration Date Visits Requ ested Visits Authorized [id number] Closed 01/08/2020 01/07/2021 1 1 Encounter Details Date Type Department Care Team Description 01/08/2020 Clinical Support Department of [facility], Preplaceme nt Exam Occupational Ronit Ham (Primary Dx) Medicine in [place], [place] [address] [place] [phone] Social History Tobacco Use Types Packs/Day Years Used Date Smoking Tobacco: Never Sex Assigned at Date Recorded Not on file documented as of this encounter Plan of Treatment Scheduled Orders Name Type Priority Associated Diagnoses Order S chedule OCC Drug screening Procedures Routine Preplacement Exam Orde red: 01/08/2020 documented as of this encounter Visit Diagnoses Diagnosis Preplacement Exam - Primary documented in this encounter Additional Health Concerns Assessment Noted Time PHQ-9 Depression Total Score: 19 06/26/2013 9:47 AM CS T documented as of this encounter
--- OUTSIDE RECORDS SUMMARY | 2022-04-19 16:16 | XMS_ITS | Encounter Summary ---
:1960 Author Organization [facility] Address [address] [place] [address] Care Team Providers Name Role Phone Unavailable Primary Care Provider Unavailable Encounter Details Date Type Department Care Team Description 04/16/2018 Clinical Communication Section of Infectious [facility] Alc[facility] [place] [address] [place] [phone] Social History Tobacco Use Types Packs/Day Years Used Date Smoking Tobacco: Never Sex Assigned at Date Recorded Not on file documented as of this encounter Miscellaneous Notes Telephone Encounter - Ml Okeefe - 04/16/2018 1:58 PM CDT Patient called today stating that she needs a refill of her boric acid? She states that [facility] denied the prescription though she is self-pay. A new prescription needs to be faxed to [facility] at [phone]. Please let me know if I can assist in any way. Thanks. documented in this encounter Plan of Treatment Not on filedocumented as of this encounter Visit Diagnoses Not on filedocumented in this encounter Additional Health Concerns Assessment Noted Time PHQ-9 Depression Total Score: 19 06/26/2013 9:47 AM CS T documented as of this encounter
--- OUTSIDE RECORDS SUMMARY | 2022-04-19 16:16 | XMS_ITS | Encounter Summary ---
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 Foreign Body Right [address] [place] [address] [address] Index Finger With [place], [place], [place] Damage To Nail Initial [id number] (Primary Dx) [phone] (Wo rk) Social History Tobacco Use Types [...] Mass Index 25.36 03/19/2021 9:48 AM CDT documented in this encounter Medications at Time of Discharge Medication Sig Dispensed Refills Start Date End Date amitriptyline (ELAVIL) 50 Take 0.25 tablets by 0 12/17/2014 mg tablet mouth at bedtime. amLODIPine (NORVASC) 2.5 Take 2.5 mg by 0 021 mg tablet mouth. biotin (MERIBIN) 5 [...] every morning. documented as of this encounter Procedure Notes Kiara Davies A.P.NShirazPShiraz - 03/19/2021 10:54 AM CDTAssociated Order(s): Laceration Repair Procedure Laceration Repair Date/Time: 03/19/2021 11:27 AM Performed by: Kiara Davies A.P.N.P. Authorized by: Kiara Davies A.P.N.PShiraz PROCEDURE DETAILS Contaminated: no Wound extent: no foreign body and no nerve damage CONSENT Consent obtained: verbal SEDATION / ANESTHESIA Anesthesia method: nerve block Nerve block type: lidocaine PRE PROCEDURE DETAILS Indication: laceration Location: Finger Finger location: Right index finger Length (cm): 3.5 Depth (mm): 2 Circulation distal to injury: capillary refill < 2 sec, warm and pink Movement distal to injury: normal Sensation distal to injury: normal Area cleansed with: Soap and water Amount of cleaning: Standard Irrigation solution: Sterile saline Irrigation volume (mL): 60 Irrigation method: Syringe Foreign body imaging: X-ray POST PROCEDURE DETAILS Tetanus status up to date: Up to date Dressing Applied: yes Wrapped with: Coban and kerlix Circulation distal to injury: capillary refill < 2 sec Movement distal to injury: normal Sensation distal to injury: normal Complications: no immediate complications Kiara Davies A.P.N.P. 03/19/21 1147 documented in this encounter ED Notes Kiara Davies A.P.N.P. - 03/19/2021 10:03 AM CDT SUBJECTIVE CHIEF COMPLAINT/REASON FOR VISIT Laceration (second finger on the right hand) HISTORY OF PRESENT ILLNESS This is a well-appearing 60-year-old female who presents with injury to her right index finger. She is left-hand dominant. She was working for her job with [employer] and had injury while using the grinding tool which slipped and hit her right index finger. She states that she noted bleeding and some tissue missing on the right finger distal to the nail and she covered it and presented to the ED. She notes she had tetanus shot in 2012 or 7 years ago. She denies the work site being dirty. She notes therewas some metal shards present. She is not on anticoagulation or blood thinning agents. She denies any previous injury to the hand or finger. She states that she does have chronic pain and is on an opioid patch. She denies numbness, tingling or loss of sensation. She has full range of motion of the finger. She denies any other injury. REVIEW OF SYSTEMS Constitutional: Negative for activity change, appetite change, fatigue and fever. HENT: Negative for congestion. Respiratory: Negative for cough and shortness of breath. Cardiovascular: Negative for chest pain. Gastrointestinal: Negative for diarrhea, nausea and vomiting. Musculoskeletal: Positive for extremity pain. Skin: Positive for wound. Allergic/Immunologic: Negative for immunocompromised state. Hematological: Negative for adenopathy. Does not bruise/bleed easily. OBJECTIVE Initial Vitals Temperature Pulse Rate Heart Rate Resp Rate Blood Pressure SpO2 03/19/21 0946 03/19/21 0946 -- 03/19/21 0946 03/19/21 0946 03/19/21 0946 36.5 ??C 65 20 132/79 95 % Pain Score 03/19/21 0947 5 - Moderate pain PHYSICAL EXAMINATION Constitutional: Nursing note and vitals reviewed. HENT: Head: Normocephalic and atraumatic. Mouth/Throat: Oropharynx is clear and moist. Mucous membranes are moist. Eyes: Conjunctivae are normal. Cardiovascular: Normal rate. Capillary refill: takes less than 3 seconds, Pulmonary/Chest: Effort normal. Abdominal: Soft. There is no abdominal tenderness. Musculoskeletal: General: Tenderness present. Normal range of motion. Comments: Right index finger has a 3cm laceration to the distal aspect of the finger extending to the nail bed with some damage to the cuticle. The laceration is superficial, no active bleeding noted.The patient has normal capillary refill and normal sensation. Normal range of motion of the finger at the PIP and DIP joints. Neurological: Alert and oriented to person, place, and time. Skin: Skin is warm. Psychiatric: She has a normal mood and affect. Behavior is normal. Judgment and thought content normal. Xray shows no acute fracture or foreign bodies to the right index finger. ASSESSMENT/PLAN The patient is seen and examined promptly after arrival to the emergency department. The patient hasminor injury to the right index finger. No laceration repair needed. The patient will be discharged and is able to go back to work today. She had no further questions or concerns. Final Diagnoses: as of Mar 19 1056 Laceration Without Foreign Body Right Index Finger With Damage To Nail Initial Kiara Davies A.P.NShirazP. 03/19/21 1148 Celina Almendarez R.N. - 03/19/2021 9:48 AM CDT Cut finger at work on a grinding blade. Celina Almendarez R.N. 03/19/21 0949 documented in this encounter Plan of Treatment Not on filedocumented as of this encounter Procedures Procedure Name Priority Date/Time Associated Comments Diagnosis LACERATION REPAIR Routine 03/19/2021 11:27 Result s for this AM CDT procedure are i n the results section. DX FINGERS RIGHT RAD - Semiurgent 03/19/2021 10:11 Res ults for this 2+ VIEWS (Fast; most ED AM CDT procedure are in patients; some the results inpatients) section. documented in this encounter Results Laceration Repair (03/19/2021 11:27 AM CDT) Narrative Kiara Davies A.P.N.P. - 03/19/2021 1 1:27 AM CDT Kiara Davies A.P.N.P. ? 03/19/2021 11:47 AM Laceration Repair Date/Time: 03/19/2021 11:27 AM Performed by: Kiara Davies A.P.N.P. Authorized by: Kiara Davies A.P.N.P. PROCEDURE DETAILS Contaminated: no ?? Wound extent: no foreign body and no ner ve damage ?? CONSENT Consent obtained: verbal SEDATION / ANESTHESIA Anesthesia method: nerve block Nerve block type: lidocaine PRE PROCEDURE DETAILS Indication: laceration ?? Location: ??Finger Finger location: ??Right index finger Length (cm): ??3.5 Depth (mm): ??2 Circulation distal to injury: capillary refill < 2 sec, warm and pink ?? Movement distal to injury: normal ?? Sensation distal to injury: normal ?? Area cleansed with: ??Soap and water Amount of cleaning: ??Standard Irrigation solution: ??Sterile saline Irrigation volume (mL): ??60 Irrigation method: ??Syringe Foreign body imaging: ??X-ray POST PROCEDURE DETAILS Tetanus status up to date: ??Up to date Dressing Applied: yes ?? Wrapped with: ??Coban and kerlix Circulation distal to injury: capillary refill < 2 sec ?? Movement distal to injury: normal ?? Sensation distal to injury: normal ?? Complications: no immediate complication s ?? Kiara Davies APRN, C.N.PShiraz PROCEDURE/MINOR SURGICAL O RDERABLES DX Fingers Right 2+ Views (03/19/2021 10:11 AM CDT) Anatomical Region Laterality Modality Upper Extremity, Fingers, Musculoskeletal RST LOS, Right Digital Radiography Musculoskeletal ARZ LOS, Muskuloskeletal FLA LOS Specimen (Source) Anatomical Collection Method Collection Time Re ceived Time Location / / Volume Laterality 03/19/2021 10:15 AM CDT Impressions 03/19/2021 10:16 AM CDT No acute abnormalities are identified in the right index finger. Narrative 03/19/2021 10:16 AM CDT EXAM: DX FINGERS RIGHT 2+ VIEWS COMPARISON: None. FINDINGS: No acute fractures are identif ied. No opaque foreign bodies are noted. There is normal mineralization and align ment. No significant arthritic changes are noted. Procedure Note Kenny Laboy M.D. - 03/19/2021Format ting of this note might be different from the original. EXAM: DX FINGERS RIGHT 2+ VIEWS COMPARISON: None. FINDINGS: No acute fractures are identif ied. No opaque foreign bodies are noted. There is normal mineralization and align ment. No significant arthritic changes are noted. IMPRESSION: No acute abnormalities are identified in the right index finger. Kiara Davies APRN C.N.P. IMG DIAGNOSTIC IMAGING PRO CEDURES documented in this encounter Visit Diagnoses Diagnosis Laceration Without Foreign Body Right In dex Finger With Damage To Nail Initial - Primary documented in this encounter Active and Recently Administered Medications Times are shown in CDT. 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
--- OUTSIDE RECORDS SUMMARY | 2022-04-19 16:16 | XMS_ITS | Encounter Summary ---
:1960 Author Organization [facility] Address [address] [place] [address] Care Team Providers Name Role Phone Unavailable Primary Care Provider Unavailable Reason for Visit Appointment Request (Routine) - Closed Specialty Diagnoses / Procedures Referred By Contact Refer red To Contact Gynecology Diagnoses Vaginosis Bacterial Referral ID Status Reason Start Date Expiration Date Visits Requ ested Visits Authorized [id number] Closed 12/23/2020 12/23/2021 1 1 Encounter Details Date Type Department Care Team Description 01/25/2021 Comprehensive Visit Department of Olivia Bhandari is Obstetrics and Nichole PShirazAShiraz-CShiraz Vulvovaginitis Gynecology in [address] [place] [address] (Primary Dx) [facility] [id number] [place] [address] [place], [place] (Work) [phone] Social History Tobacco Use Types Packs/Day Years Used Date Smoking Tobacco: Never Sex Assigned at Date Recorded Not on file documented as of this encounter Last Filed Vital Signs Vital Sign Reading Time Taken Comments Blood Pressure 134/82 01/25/2021 9:31 AM CDT Pulse 80 01/25/2021 9:31 AM CDT Temperature - - Respiratory Rate - - Oxygen Saturation - - Inhaled Oxygen Concentration - - Weight - - Height - - Body Mass Index - - documented in this encounter Consult Notes Olivia Bhandari P.A.-C. - 01/25/2021 9:30 AM CDT SUBJECTIVE CHIEF COMPLAINT/REASON FOR VISIT Vaginitis. HISTORY OF PRESENT ILLNESS Ms. Gutierrez is a 60 year old (vaginal) who presents today to the Division of Gynecology for evaluation of recurrent bacterial vaginosis. She describes that since her 30s she has had recurrent bacterial vaginosis. This typically will start with a change in odor, change in consistency of her vaginal discharge, and then a change in color to yellow and or white clumps. At times she notices a little bit of burning sensation. She also has noticed some itching/irritation of her vulva. The patient underwent a hysterectomy at age 53 for bleeding. She denies any vaginal bleeding or spotting since that time. She does use an estrogen patch home that she changes once weekly. She does not use any topical vaginal estrogen. The patient has tried boric acid suppositories in the past with benefit. The last time she utilized these was several years ago. She has tried several rounds of Monistat that works only temporarily. She tries Replens plans with some benefit. She denies ever trying metronidazole gel or oral metronidazole. She has tried Azo tablets with some benefit. Sexually active: Not currently. STI concerns or known exposures: No concerns. Last pap smear: Seven years ago. Result: NILM and HPV negative History of abnormal pap smear(s): None. The patient is a never smoker. She denies any family history of female cancers. 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 She has history of hypertension and takes oral medication. She denies historyof diabetes. She reports that her father and sister have had colon cancer. OBJECTIVE PHYSICAL EXAM General: Healthy-appearing female in no acute distress Psych: Appropriate affect. Answers questions appropriately. Respiratory: Nonlabored breathing. Pelvic: External genitalia are normal appearance. No lesions noted. A vulvar yeast culture was collected, with sensitivities. Medium size speculum was utilized and cervix was surgically absent. Vagina with normal, pink mucosa and rugae. Cultures were collected for bacterial vaginosis and yeast, with se nsitivities. Single digit exam was then performed. No evidence of masses, nodularity, or fullness. This visit was chaperoned by clinical academic affairs assistant Bina Templeton. IRP #1 Recurrent vulvovaginitis The patient denied decided to take a fresh look at things and update cultures. We discussed that thebacterial vaginosis will return with results within 24 hours. Because we are asking for sensitivities with her use cultures this could take up to seven days to come back. The initial plan will be to follow up the a portal message with test results and outline treatment recommendations based on these results. If required we can always coordinate a phone visit to discuss further treatment options or plans. For now we will leave any follow-up [id number] visit open-ended. The patient was in agreement withthis plan and had no further questions. PATIENT EDUCATION: Ready to learn, no apparent learning barriers were identified; learning preferences include listening. Explained diagnosis and treatment plan; patient expressed understanding of the content. This is a New Patient N3 (30 mins) visit. 35 minutes total time for today's visit. 30 minutes were spent in direct [id number] counseling and coordination of care. Olivia Bhandari P.A.-C. documented in this encounter Plan of Treatment Not on filedocumented as of this encounter Procedures Procedure Name Priority Date/Time Associated Diagnosis Comme nts FUNGAL CULTURE, Routine 01/25/2021 10:02 Vaginitis Results for this VAGINAL AM CDT Vulvovaginitis procedure are in the results section. GRAM STAIN FOR Routine 01/25/2021 10:01 Vaginitis Results f or this BACTERIAL AM CDT Vulvovaginitis procedure are in VAGINOSIS the results section. FUNGAL CULTURE, Routine 01/25/2021 10:01 Vaginitis Results for this VAGINAL AM CDT Vulvovaginitis procedure are in the results section. documented in this encounter Results Fungal Culture, Vaginal (01/25/2021 10:02 AM CDT) [facility] gist Method Time Signature Fungal No growth 01/28/2021 DTL Culture, after 3 1:01 PM CDT Vaginal days of incubation. Specimen Anatomical Collection Method Collection Time Receive d Time (Source) Location / / Volume Laterality Swab (Vulva) 01/25/2021 10:02 01/25/2021 AM CDT 12:34 PM CDT Comment: Specimen Source Site: Swab Olivia Bhandari P.A.-C. LAB MICROBIOLOGY - GENERAL O RDERABLES Performing Organization Address City/State/ZIP Code Phon e Number [facility] - [address] [place], [place] [address] [place] [address] Laboratories-[facility] [address] [facility] Fungal Culture, Vaginal (01/25/2021 10:01 AM CDT) [facility] Method Time Signature Fungal No growth 01/28/2021 DTL Culture, after 3 1:01 PM CDT Vaginal days of incubation. Specimen Anatomical Collection Method Collection Time Receive d Time (Source) Location / / Volume Laterality Swab (Vagina) 01/25/2021 10:01 01/25/2021 AM CDT 12:33 PM CDT Comment: Specimen Source Site: Swab Olivia Bhandari P.A.-C. LAB MICROBIOLOGY - GENERAL O [place] Performing Organization Address City/[facility]/ZIP Code Phon e Number [facility] - [address] [place], [place] [address] [place] [address] Laboratories-[address] Gram Stain for Bacterial Vaginosis (01/25/2021 10:01 AM CDT) [facility] Goodreads Method Time Signature Gram Stain Consistent 01/25/2021 DT for Bacterial with normal 7:49 PM CDT Vaginosis bacterial vaginal manav. Specimen Anatomical Collection Method Collection Time Receive d Time (Source) Location / / Volume Laterality Swab (Vagina) 01/25/2021 10:01 01/25/2021 AM CDT 12:33 PM CDT Comment: Specimen Source Site: Swab Olivia Bhandari P.A.-C. LAB MICROBIOLOGY - GENERAL O [place] Performing Organization Address City/State/ZIP Code Phon e Number [facility] - [address] [place], [place] [address] [place] [address] documented in this encounter Visit Diagnoses Diagnosis Vaginitis Vulvovaginitis - Primary documented in this encounter Additional Health Concerns Assessment Noted Time PHQ-9 Depression Total Score: 19 06/26/2013 9:47 AM CS T documented as of this encounter
--- OUTSIDE RECORDS SUMMARY | 2022-04-19 16:16 | XMS_ITS | Encounter Summary ---
:1960 Author Organization [facility] Address [address] [place] [address] Care Team Providers Name Role Phone Unavailable Primary Care Provider Unavailable Reason for Visit Reason Comments MRO Review [facility] Encounter Details Date Type Department Care Team Description 01/21/2020 Office Visit Department of Occupational BosYaz cartagena M.D. Drug Screen Medicine in [address] [address] [place] [address] [phone] Social History Tobacco Use Types Packs/Day Years Used Date Smoking Tobacco: Never Sex Assigned at Date Recorded Not on file documented as of this encounter Progress Notes Ml Hoskins L.PShirazN. - 01/21/2020 7:00 AM CDT MRO Review for [facility]. documented in this encounter Plan of Treatment Not on filedocumented as of this encounter Visit Diagnoses Diagnosis Drug Screen documented in this encounter Additional Health Concerns Assessment Noted Time PHQ-9 Depression Total Score: 19 06/26/2013 9:47 AM CS T documented as of this encounter
--- OUTSIDE RECORDS SUMMARY | 2022-04-19 16:16 | XMS_ITS | Encounter Summary ---
:1960 Author Organization [facility] Address [address] [place] [address] Care Team Providers Name Role Phone Unavailable Primary Care Provider Unavailable Encounter Details Date Type Department Care Team Description 01/22/2021 Clinical Communication Visit Review in [facility] (Patient: [place], [place] Inadequate Prep for [address] Appointment) [place], [place] [address] Social History Tobacco Use Types Packs/Day Years [...]
[2022-04-19 16:42] LABS: Basophils Percent Auto 0.6 % (0.0-3.0); Eosinophils Percent Auto 2.8 % (0.0-7.0); Hematocrit 36.7 % (33.0-51.0); Lymphocytes Percent Auto 24.8 % (20-44); Mean Corpuscular HGB Conc 33 gm/dL (32-36); Mean Corpuscular Hemoglobin 30 pg (26-34); Mean Corpuscular Volume 92 fL (80-100); Monocytes Percent Auto 10.7 % (0.0-11.0); Neutrophils Percent Auto 61.1 % (42.0-72.0); Platelet Count* 198 K/uL (140-440); RDW Coefficient of Variation % 13.5 % (11.5-15.5); Red Blood Count 3.98 m/uL (4.00-5.20); White Blood Count* 3.26 K/uL (4.50-11.00)
[2022-04-19 16:46] LABS: Slide Review Reflex No
[2022-04-19 16:59] LABS: Albumin* 4.3 g/dL (3.3-5.0); Chloride* 101 mmol/L (96-114); Sodium* 139 mmol/L (135-149)
[2022-04-19 17:00] LABS: Potassium* 3.8 mmol/L (3.6-5.1)
[2022-04-19 17:02] LABS: Alanine Aminotransferase* 13 U/L (4-35); Alkaline Phosphatase* 89 U/L (40-150); Aspartate Amino Transferase* 26 U/L (12-35); Bilirubin Direct* 0.2 mg/dL (0.0-0.5); Bilirubin Total* 0.3 mg/dL (0.1-1.5); Blood Urea Nitrogen* 20 mg/dL (7-30); Calcium* 8.7 mg/dL (8.4-10.6); Carbon Dioxide* 30 mmol/L (20-32); Creatinine* 0.8 mg/dL (0.5-1.5); Est. Creatinine Clearance* 44.02; Estimated Glomerular Filt Rate 83 ml/min; Glucose* 95 mg/dL (60-115); Total Protein* 7.5 g/dL (6.0-8.3)
[2022-04-19 17:12] LABS: NT Pro B Type NatriureticPept* 44 PG/mL (0-125)
--- NOTE | 2022-04-19 17:16 | CRLHL7_ITS ---
For Patients: As a result of the Cures Act, medical imaging exams and procedure reports are released immediately into your electronic medical record. You may view this report before your referring provider. If you have questions, please contact your health care provider. INDICATION: RLE SWELLING TECHNIQUE: Ultrasound venous duplex right lower extremity. COMPARISON: None. FINDINGS: The right common femoral, superficial femoral, deep femoral, popliteal, posterior tibial, and greater saphenous veins are fully compressible with normal waveforms. The contralateral left common femoral artery is fully compressible with normal waveform. No masses evident. IMPRESSION: Normal ultrasound of the right lower extremity veins. Dictated by: Mian Foster MD @ 04/19/2022 17:43:05 (Electronically Signed)
--- NOTE | 2022-04-19 17:34 | ED.NURSE ---
Pt to and back from radiology
[2022-04-19 17:44] VITALS: BP 121/73; PULSE 76; RESP 18; TEMP 36.4; O2SAT 96
== END 2022-04-19 17:48 | disposition home or self-care (01) ==
PROVIDERS: Emergency Provider Family Medicine; PCP Family Medicine
DX: R60.0 Localized edema (principal)
CPT/HCPCS: 36415; 80048; 80076; 81001; 83880; 85025; 93971; 99284

== ENCOUNTER 2022-09-01 13:43 | Emergency (ER) | payer OTHER, SELFPAY ==
[2022-09-01] VITALS (15 sets, daily range): BP systolic 105–129; BP diastolic 64–79; PULSE 66–94; RESP 16; TEMP 36.9; O2SAT 93–98; BMI 25.5
--- NOTE | 2022-09-01 14:02 | ED.GENADULT ---
HPI - General Adult General Time Seen by Provider: 14:02 Date Seen: 09/01/22 Chief complaint: Neuro Symptoms/Altered Deficit Stated complaint: Left hand went rubbery, Concerned about stroke Time Seen by Provider: 09/01/22 13:49 Source: patient and RN notes reviewed Mode of arrival: ambulatory Limitations: no limitations History of Present Illness HPI narrative: Patient is a 61-year-old female that is coming into the ED with an episode lasting 3-4 minutes while at [employer] where her left hand felt rubbery. She was lifting purse into the cart and states her hand felt rubbery she did not drop the purse still had a pinion and wheel truer of the pursed. Difficult for me to assess whether not the hand felt numb. She just keeps stating it felt rubbery. She states it felt abnormal. She at no time dropped the purse. Within 3-4 minute symptoms resolved and she was back to normal. She did not feel any irregular heartbeat, no chest pain. Her speech was normal, she was able to talk to staff at [employer] while this was happening. She did not feel anything in her leg. She has had no prior cardiovascular disease. She does report that she went recently up on an antidepressant from 250 mg to 300 mg, 1st dose today. She does admit there was a lot of anxiety and stressors. She is going through bankruptcy in states she is dealing with a difficult lower. Her brother just got out of the hospital. She lost her dad not too long ago. There is family history of strokes. Related Data Home Medications Medication Instructions Recorded Confirmed amitriptyline 10 mg tablet 20 mg PO DAILY 02/07/22 09/01/22 amlodipine 2.5 mg tablet 2.5 mg PO DAILY 02/07/22 09/01/22 buspirone 15 mg tablet 15 mg PO BID 02/07/22 09/01/22 clonazepam 0.5 mg tablet 0.5 mg PO HS 02/07/22 09/01/22 fentanyl 12 mcg/hr transdermal 1 patch transdermal Q72H 02/07/22 09/01/22 patch fentanyl 25 mcg/hr transdermal 1 patch transdermal Q72H 02/07/22 09/01/22 patch ferrous sulfate 325 mg (65 mg 325 mg PO DAILY 02/07/22 02/07/22 iron) tablet,delayed release gabapentin 100 mg capsule 100 mg PO HS 02/07/22 09/01/22 hydrocodone 5 mg-acetaminophen 325 1 tab PO Q6H PRN 02/07/22 09/01/22 mg tablet omeprazole 20 mg capsule,delayed 20 mg PO DAILY 02/07/22 09/01/22 release dextroamphetamine-amphetamine 20 20 mg PO DAILY 09/01/22 09/01/22 mg tablet estradiol 0.025 mg/24 hr weekly 1 patch transdermal .weekly 09/01/22 09/01/22 transdermal patch fluvoxamine 100 mg tablet 300 mg PO DAILY 09/01/22 09/01/22 methocarbamol 500 mg tablet 500 mg PO Q6H PRN 09/01/22 09/01/22 Allergies Allergy/AdvReac Type Severity Reaction Status Date / Time erythromycin base AdvReac Mild Verified 09/01/22 13:48 Review of Systems Status of ROS: Reports: 10 or more systems reviewed and unremarkable except as noted in History and below [facility] Medical History Anxiety Chronic constipation Chronic fatigue Dog bite Fibromyalgia syndrome GERD (gastroesophageal reflux disease) MDD (major depressive disorder) Musculoskeletal back pain Musculoskeletal pain Obstructive sleep apnea Panic attack RLS (restless legs syndrome) Shoulder pain Surgical History H/O vaginal hysterectomy S/P cervical spinal fusion Social History Smoking Status: Never smoker Do you use any of these nicotine containing products: None Second hand tobacco smoke exposure: No How often do you have a drink containing alcohol: never How often do you have six or more drinks on one occasion: Never AUDIT-C Alcohol total score: 0 Non-prescribed substance use: denies use service: No Exam Const: Vital Signs, click to edit/add: Vital Signs - 24 hr 09/01/22 13:52 09/01/22 14:08 09/01/22 14:50 Temperature 98.5 F Pulse Rate 86 Pulse Rate [Pulse Oximeter] 94 Respiratory Rate 16 Blood Pressure 129/79 Blood Pressure [Ri ght Upper Arm] 127/78 Pulse Oximetry 98 94 94 Oxygen Delivery Me thod Room Air 09/01/22 14:51 09/01/22 15:00 09/01/22 15:02 Temperature Pulse Rate 87 77 76 Pulse Rate [Pulse Oximeter] Respiratory Rate Blood Pressure 105/64 Blood Pressure [Ri ght Upper Arm] Pulse Oximetry 95 94 93 Oxygen Delivery Me thod 09/01/22 15:03 09/01/22 15:15 09/01/22 15:30 Temperature Pulse Rate 75 71 71 Pulse Rate [Pulse Oximeter] Respiratory Rate Blood Pressure Blood Pressure [Ri ght Upper Arm] Pulse Oximetry 95 94 93 Oxygen Delivery Me thod 09/01/22 15:31 Temperature Pulse Rate 69 Pulse Rate [Pulse Oximeter] Respiratory Rate Blood Pressure 105/64 Blood Pressure [Ri ght Upper Arm] Pulse Oximetry 94 Oxygen Delivery Me thod Documenting provider has reviewed patient's vital signs: yes Common normals: no apparent distress, average body habitus, oriented x3, no limitations, healthy appearing, alert and well nourished General appearance: cooperative, comfortable, well kempt, well developed and anxious Orientation/consciousness: Yes awake, Yes oriented to person, Yes oriented to place and Yes oriented to time HENMT: Common normals: normocephalic, head/scalp atraumatic, hearing grossly normal bilaterally, external ears normal, external nose normal, nasal mucous membranes and turbinates normal, moist oral mucous membranes, oropharynx normal, dentition normal and gingiva normal Head and scalp: normocephalic and atraumatic Face and sinus: normal facial exam Nose: external nose normal and nasal mucous membranes and turbinates normal External ear: external ears normal Eye: Common normals: PERRL, EOMs intact bilaterally, conjunctivae normal and no scleral icterus Conjunctiva: conjunctiva(e) normal Pupil: PERRL Neck & C-Spine: Common normals: full ROM, no lymphadenopathy, supple, no meningeal signs, no JVD and thyroid normal Thyroid: thyroid normal Resp: Common normals: normal respiratory effort, no retractions, no use of accessory muscles and clear to auscultation bilaterally Auscultation: clear to auscultation bilaterally Cardio: Common normals: no JVD, regular rate, regular rhythm, S1 normal heart sound, S2 normal heart sound, no gallops, no clicks, no murmurs and no rub Rate: regular rate Rhythm: regular rhythm Heart sounds: S1 normal and S2 normal GI: Common normals: Normal to inspection, nondistended, normoactive bowel sounds present, soft to palpation, non-tender, no hepatosplenomegaly, no masses and no bruits Palpation: soft and no hepatosplenomegaly Neuro: Alfredo Coma Scale: document GCS findings Crockett coma scale eye opening: Spontaneous (4) Alfredo coma scale verbal response: Orientated (5) Crockett coma scale motor response: Obey commands (6) Alfredo coma scale total score: 15 Common normals: oriented x3, CN's II-XII intact bilaterally, moves all extremities, no focal motor deficits, no sensory deficits noted and gait normal Sensorium/orientation: awake, alert, oriented to person, oriented to place and oriented to time Meningeal signs: no meningeal signs Coordination/balance: Normal rapid alternating movements of the distal upper extremity present (Neuro) Speech: speech normal Motor exam: strength 5/5 throughout, no pronator drift, no tremor noted, no asterixis, no fasciculations and muscle tone normal throughout Coordination: rapid alternating movement UE normal Psych: Appearance: well kempt Course Course Hospital Course: Patient's NIH is 0, she is back to baseline. By her history I a.m. not as inclined to think that this is cerebrovascular disease such as a stroke given the fact that she maintained control of the person her hand. Nonetheless, we will proceed with head CT followed by a CTA head and neck to completely rule this out. She will be on cardiac monitoring while here to look for any arrhythmia. Will obtain baseline EKG and labs as well. Reevaluation(s) Reevaluation #1: Reviewed with patient the findings of the stenosis that is incidental on her neck imaging. She is having no acute radiculopathic findings at this time. She has had no recurrence of her ?rubbery? hand. Reviewed normal labs. She has an appointment with her primary care provider on the , would have her keep that. Time: 16:18 Vital Signs Vital signs: Initial Vital Signs Temperature 98.5 F 09/01/22 13:52 Temperature Source Temporal Artery Scan 09/01/22 13:52 Pulse Rate 94 09/01/22 13:52 Pulse Rhythm 09/01/22 13:52 Pulse Strength 3+ Normal 09/01/22 13:52 Respiratory Rate 16 09/01/22 13:52 Blood Pressure 127/78 09/01/22 13:52 Blood Pressure Mean 94 09/01/22 13:52 Blood Pressure Position Sitting 09/01/22 13:52 Pulse Oximetry 98 09/01/22 13:52 Oxygen Delivery Method 09/01/22 13:52 Vital Signs Temperature 98.5 F 09/01/22 13:52 Pulse Rate 94 09/01/22 13:52 Respiratory Rate 16 09/01/22 13:52 Blood Pressure 127/78 09/01/22 13:52 Pulse Oximetry 98 09/01/22 13:52 Oxygen Delivery Method 09/01/22 13:52 Temperature 98.5 F 09/01/22 13:52 Pulse Rate 69 09/01/22 15:31 Respiratory Rate 16 09/01/22 13:52 Blood Pressure 105/64 09/01/22 15:31 Pulse Oximetry 94 09/01/22 15:31 Oxygen Delivery Method 09/01/22 13:52 Medical Decision Making Lab Data Lab results reviewed: Yes I reviewed the patient's lab results Labs: Lab Results 09/01/22 09/01/22 09/01/22 Range/Units 14:08 14:08 14:08 WBC 5.98 (4.50-11.00) K/uL RBC 4.68 (4.00-5.20) m/uL Hgb 13.9 (12.0-16.0) gm/dL Hct 42.2 (33.0-51.0) % MCV 90 (80-100) fL MCH 30 (26-34) pg MCHC 33 (32-36) gm/dL RDW Coeff of Marian 12.7 (11.5-15.5) % Plt Count 197 (140-440) K/uL Neut % (Auto) 74.2 H (42.0-72.0) % Lymph % (Auto) 16.9 L (20-44) % Doddridge % (Auto) 7.0 (0.0-11.0) % Eos % (Auto) 1.2 (0.0-7.0) % Baso % (Auto) 0.5 (0.0-3.0) % Neut # (Auto) 4.40 (1.7-7.0) K/uL Lymph # (Auto) 1.00 (0.90-2.90) K/uL Doddridge # (Auto) 0.40 (0.00-0.90) K/UL Eos # (Auto) 0.07 (0.00-0.50) K/uL Baso # (Auto) 0.03 (0.00-0.30) K/uL INR 0.97 (0.91-1.10) APTT 28 (23-33) Seconds Sodium 140 (135-149) mmol/L Potassium 3.7 (3.6-5.1) mmol/L Chloride 106 (96-114) mmol/L Carbon Dioxide 26 (20-32) mmol/L BUN 21 (7-30) mg/dL Creatinine 0.8 (0.5-1.5) mg/dL Estimated Creat Clear 44.02 Estimated GFR 83 ml/min Glucose 111 (60-115) mg/dL Calcium 8.9 (8.4-10.6) mg/dL POC Troponin I (0.01-0.04) ng/ml 09/01/22 Range/Units 14:08 WBC (4.50-11.00) K/uL RBC (4.00-5.20) m/uL Hgb (12.0-16.0) gm/dL Hct (33.0-51.0) % MCV (80-100) fL MCH (26-34) pg MCHC (32-36) gm/dL RDW Coeff of Marian (11.5-15.5) % Plt Count (140-440) K/uL Neut % (Auto) (42.0-72.0) % Lymph % (Auto) (20-44) % Doddridge % (Auto) (0.0-11.0) % Eos % (Auto) (0.0-7.0) % Baso % (Auto) (0.0-3.0) % Neut # (Auto) (1.7-7.0) K/uL Lymph # (Auto) (0.90-2.90) K/uL Doddridge # (Auto) (0.00-0.90) K/UL Eos # (Auto) (0.00-0.50) K/uL Baso # (Auto) (0.00-0.30) K/uL INR (0.91-1.10) APTT (23-33) Seconds Sodium (135-149) mmol/L Potassium (3.6-5.1) mmol/L Chloride (96-114) mmol/L Carbon Dioxide (20-32) mmol/L BUN (7-30) mg/dL Creatinine (0.5-1.5) mg/dL Estimated Creat Clear Estimated GFR ml/min Glucose (60-115) mg/dL Calcium (8.4-10.6) mg/dL POC Troponin I 0.00 L (0.01-0.04) ng/ml Imaging Data CT scan - head: Attestation: I have reviewed the pertinent imaging results. Radiologist's impression: Patient: VITA BACON Facility:?[facility] Patient ID:?[id number] Site Patient ID:?[id number]. Site :?[id number] Study:?CT Head W/O ACUTE STROKE-09/01/2022 2:53:58 PM Ordering Physician:Kathryn Baeza Final Report: Indication: Left hand incoordination Technique: Volumetric multidetector CT images of the head were obtained without the administration of low osmolar intravenous contrast. Comparison: None available Findings: There is no intra-axial or extra-axial fluid collection. There is no mass effect or midline shift. There is age-related cortical atrophy with mild sulcal widening and ex vacuo dilatation of the lateral ventricles. There are chronic small vessel disease changes in the subcortical and periventricular white matter without lost mccabe-white differentiation. The orbits and their contents are grossly within normal limits. The bony calvarium is grossly intact. The paranasal sinuses are clear. The mastoid air cells are well aerated. Impression: 1. Age-related changes of the brain without acute intracranial abnormality. A report receipt was sent to Felisha Cisneros at 3:01 p.m. September 01, 20[address] note that all CT scans at this facility use dose modulation, iterative reconstruction, and/or weight-based dosing when appropriate to reduce radiation dose to as low as reasonably achievable. Dictated by Will Ling MD @ 09/01/2022 3:06:39 PM (Electronic Signature) CTA head and neck: Attestation: I have reviewed the pertinent imaging results. Radiologist's impression: Patient: VITA BACON Facility:?[facility] Patient ID:?[id number] Site Patient ID:?[id number]. Site :?[id number] Study:?CT Head Angio ACUTE STROKE PROTOCOL W/95CC [id number] 2:52:25 PM Ordering Physician:Kathryn Baeza Preliminary Report: CTA head: No evidence of intracranial large vessel occlusion or critical stenosis. CTA neck: No evidence of hemodynamically significant stenosis in the neck. Non angiographic findings: Moderate to severe neural foraminal stenosis on the right at C2-3, bilaterally at C3-4. Dictated by Jennifer Gracia MD @ 09/01/2022 3:37:45 PM Read by:?Jennifer Gracia MD @ 09/01/2022 15:37:47 ECG Data Attestation: I personally reviewed and interpreted this ECG as follows: (Sinus rhythm, 75 beats per minute. No arrhythmia, no ischemia. QT corrected 419 milliseconds. EKG is my interpretation.) Critical Care Time Critical Care Time Critical Care Time: No Discharge Plan Discharge Clinical Impression: Dysfunction of right hand Patient Disposition: Home, Self-Care Condition: Stable Instructions: Ischemic Stroke (DC), Cervical Radiculopathy (ED) Additional Instructions: Need to keep your follow-up appointment with her primary care provider. Review stroke symptoms as outlined in the handout. There is no evidence that your current symptoms are ischemic or stroke in nature. However, if you have recurrent symptoms as you experience today, would recommend follow-up in the interim for re-evaluation. The neck imaging did show some cervical root impingement in the upper spine on both sides. This could put her at risk for condition called cervical radiculopathy. There is nothing to do if you are not experiencing any symptoms but your primary care provider should be aware of this. Activity Level: Activity as Tolerated Prescriptions: No Action hydrocodone-acetaminophen 5-325 mg tablet 1 tab PO Q6H PRN Label Comments: TAKE ONE TABLET BY MOUTH EVERY FOUR TO SIX HOURS NEEDED FOR CHRONIC PAIN. DO NOT EXCEED 3 TABLETS IN 24 HOURS; must last 30 days. USE DAE clonazepam 0.5 mg tablet 0.5 mg PO HS Label Comments: TAKE ONE TABLET BY MOUTH ONE TIME DAILY AT BEDTIME amlodipine 2.5 mg tablet 2.5 mg PO DAILY amitriptyline 10 mg tablet 20 mg PO DAILY Label Comments: TAKE TWO TABLETS BY MOUTH DAILY omeprazole 20 mg capsule,delayed release(DR/EC) 20 mg PO DAILY Label Comments: Take 1 Capsule (20 mg) by mouth once daily before a meal gabapentin 100 mg capsule 100 mg PO HS Label Comments: TAKE ONE CAPSULE BY MOUTH ONE TIME DAILY AT BEDTIME fentanyl 25 mcg/hr patch 72 hour 1 patch transdermal Q72H Label Comments: Apply 1 Patch on dry, clean, hairless skin every 72 hours. Use dates 01/17/2022-02/15/2022 ferrous sulfate 325 mg (65 mg iron) tablet,delayed release (DR/EC) 325 mg PO DAILY Label Comments: Take 1 Tablet (325 mg) by mouth once daily. buspirone 15 mg tablet 15 mg PO BID Label Comments: TAKE 1.5 TABLETS TWICE A DAY. fentanyl 12 mcg/hr patch 72 hour 1 patch transdermal Q72H Label Comments: APPLY 1 PATCH BY TRANSDERMAL ROUTE AND CHANGE EVERY 72 HOURS. USE DATES: 01/17/22-02/15/22 fluvoxamine 100 mg tablet 300 mg PO DAILY Label Comments: Take 2-3 tablets by mouth once daily in the mid-to-late afternoon, as directed. (Sertraline has been stopped) dextroamphetamine-amphetamine 20 mg tablet 20 mg PO DAILY Label Comments: TAKE 1 TABLET BY MOUTH EVERY DAY estradiol 0.025 mg/24 hr patch weekly 1 patch transdermal .weekly Label Comments: Apply 1 Patch on dry, clean, hairless skin once weekly methocarbamol 500 mg tablet 500 mg PO Q6H PRN Label Comments: TAKE TWO TABLETS BY MOUTH EVERY SIX HOURS NEEDED FOR MUSCLE SPASM Follow Up/Referrals: Geno Mendoza DO [Primary Care Provider] - Stand [facility]one [facility] Info Inst[facility]
--- NOTE | 2022-09-01 14:07 | CRLHL7_ITS ---
For Patients: As a result of the Century Cures Act, medical imaging exams and procedure reports are released immediately into your electronic medical record. You may view this report before your referring provider. If you have questions, please contact your health care provider. INDICATION: Acute stroke, left hand incoordination. TECHNIQUE: CTA head with contrast bolus tracking and 3D MIP reconstruction. FINDINGS: There is normal opacification of the intracranial vasculature. There is no large vessel occlusion. No aneurysm is identified. IMPRESSION: Unremarkable head CTA. Please note that all CT scans at this facility use dose modulation, iterative reconstruction, and/or weight-based dosing when appropriate to reduce radiation dose to as low as reasonably achievable. Dictated by Will Mojica MD @ 09/01/2022 4:43:13 PM (Electronically Signed)
--- NOTE | 2022-09-01 14:07 | CRLHL7_ITS ---
For Patients: As a result of the Century Cures Act, medical imaging exams and procedure reports are released immediately into your electronic medical record. You may view this report before your referring provider. If you have questions, please contact your health care provider. INDICATION: Acute stroke, left hand incoordination. TECHNIQUE: CTA neck with contrast bolus tracking and 3D MIP reconstruction. FINDINGS: There is no significant carotid or vertebral artery stenosis or dissection. The soft tissues of the neck are within normal limits. There has been an extensive cervical fusion. There is moderate to severe neural foraminal stenosis on the right at C2-3, bilaterally at C3-4. IMPRESSION: Unremarkable neck CTA. Please note that all CT scans at this facility use dose modulation, iterative reconstruction, and/or weight-based dosing when appropriate to reduce radiation dose to as low as reasonably achievable. Dictated by Will Mojica MD @ 09/01/2022 4:45:18 PM (Electronically Signed)
--- NOTE | 2022-09-01 14:08 | CRLHL7_ITS ---
For Patients: As a result of the Century Cures Act, medical imaging exams and procedure reports are released immediately into your electronic medical record. You may view this report before your referring provider. If you have questions, please contact your health care provider. Indication: Left hand incoordination Technique: Volumetric multidetector CT images of the head were obtained without the administration of low osmolar intravenous contrast. Comparison: None available Findings: There is no intra-axial or extra-axial fluid collection. There is no mass effect or midline shift. There is age-related cortical atrophy with mild sulcal widening and ex vacuo dilatation of the lateral ventricles. There are chronic small vessel disease changes in the subcortical and periventricular white matter without lost mccabe-white differentiation. The orbits and their contents are grossly within normal limits. The bony calvarium is grossly intact. The paranasal sinuses are clear. The mastoid air cells are well aerated. Impression: 1. Age-related changes of the brain without acute intracranial abnormality. A report receipt was sent to Felisha Cisneros at 3:01 p.m. September 01, 20[address] Please note that all CT scans at this facility use dose modulation, iterative reconstruction, and/or weight-based dosing when appropriate to reduce radiation dose to as low as reasonably achievable. Dictated by Will Ling MD @ 09/01/2022 3:06:39 PM (Electronically Signed)
[2022-09-01 14:37] LABS: Basophils Absolute Auto 0.03 K/uL (0.00-0.30); Basophils Percent Auto 0.5 % (0.0-3.0); Eosinophils Absolute Auto 0.07 K/uL (0.00-0.50); Eosinophils Percent Auto 1.2 % (0.0-7.0); Hematocrit 42.2 % (33.0-51.0); Hemoglobin* 13.9 gm/dL (12.0-16.0); Immature Granulocytes Abs Auto 0.01 K/uL (0.00-0.30); Immature Granulocytes Pct Auto 0.2 %; Lymphocytes Percent Auto 16.9 % (20-44); Mean Corpuscular HGB Conc 33 gm/dL (32-36); Mean Corpuscular Hemoglobin 30 pg (26-34); Mean Corpuscular Volume 90 fL (80-100); Neutrophils Percent Auto 74.2 % (42.0-72.0); Platelet Count* 197 K/uL (140-440); RDW Coefficient of Variation % 12.7 % (11.5-15.5); Red Blood Count 4.68 m/uL (4.00-5.20); White Blood Count* 5.98 K/uL (4.50-11.00)
[2022-09-01 14:43] LABS: Slide Review Reflex No
[2022-09-01 14:48] LABS: Chloride* 106 mmol/L (96-114)
[2022-09-01 14:49] LABS: Potassium* 3.7 mmol/L (3.6-5.1); Sodium* 140 mmol/L (135-149)
[2022-09-01 14:51] LABS: Creatinine* 0.8 mg/dL (0.5-1.5); Est. Creatinine Clearance* 44.02; Estimated Glomerular Filt Rate 83 ml/min
[2022-09-01 14:52] LABS: Blood Urea Nitrogen* 21 mg/dL (7-30); Calcium* 8.9 mg/dL (8.4-10.6); Carbon Dioxide* 26 mmol/L (20-32); Glucose* 111 mg/dL (60-115); INR 0.97 (0.91-1.10); Prothrombin Time 13.5 Seconds
[2022-09-01 14:53] LABS: Partial Thromboplastin Time* 28 Seconds (23-33)
== END 2022-09-01 16:38 | disposition home or self-care (01) ==
PROVIDERS: Emergency Provider Family Medicine; PCP Family Medicine
DX: M25.641 Stiffness of right hand, not elsewhere classified (principal)
CPT/HCPCS: 36415; 70450; 70496; 70498; 80048; 84484; 85025; 85610; 85730; 93005; 94761; 99284; 99285; Q9967

== ENCOUNTER 2022-10-10 21:22 | Outpatient (CLI) | payer OTHER, SELFPAY | END 2022-10-10 21:23 | disposition home or self-care (01) | LOC: SLEEP 21:22 | PROVIDERS: PCP Family Medicine; Visit Provider Internal Medicine | DX: G47.33 Obstructive sleep apnea (adult) (pediatric) (principal) | CPT/HCPCS: 95811 ==

== ENCOUNTER 2023-02-15 14:17 | Emergency (ER) | payer OTHER, SELFPAY ==
[2023-02-15 14:29] VITALS: BP 161/85; PULSE 67; RESP 16; TEMP 36.1; O2SAT 97; BMI 25.5
--- NOTE | 2023-02-15 14:41 | ED.GENADULT ---
HPI - General Adult General Time Seen by Provider: 14:42 Date Seen: 02/15/23 Chief complaint: Headache/Migraine Stated complaint: migrane, nausea Time Seen by Provider: 02/15/23 14:19 Source: patient Mode of arrival: ambulatory Limitations: no limitations History of Present Illness HPI narrative: Patient is a 62-year-old female history of fibromyalgia, anxiety, chronic fatigue syndrome presented emergency department for a headache. She has a headache started around 08:00 this morning. She states the pain starts in her right maxillary sinus going up her right forehead and in her occipital region. Patient denies any vision changes but admits to photophobia. Had 1 episode of emesis but states her nausea is improving at this time. States she has had headaches like this before. She thinks is because she has been taken off her fluvoxamine and is getting be changed to a different anxiety medicine in 2 weeks. The denies vision changes, weakness, numbness, chest pain, shortness of breath, abdominal pain, diarrhea, constipation. Denies any head trauma. Related Data Home Medications Medication Instructions Recorded Confirmed amitriptyline 10 mg tablet 20 mg PO DAILY 02/07/22 09/01/22 amlodipine 2.5 mg tablet 2.5 mg PO DAILY 02/07/22 09/01/22 buspirone 15 mg tablet 15 mg PO BID 02/07/22 09/01/22 ferrous sulfate 325 mg (65 mg 325 mg PO DAILY 02/07/22 02/07/22 iron) tablet,delayed release hydrocodone 5 mg-acetaminophen 325 1 tab PO Q6H PRN 02/07/22 09/01/22 mg tablet omeprazole 20 mg capsule,delayed 20 mg PO DAILY 02/07/22 09/01/22 release estradiol 0.025 mg/24 hr weekly 1 patch transdermal .weekly 09/01/22 09/01/22 transdermal patch fluvoxamine 100 mg tablet 300 mg PO DAILY 09/01/22 09/01/22 hydroxyzine HCl 25 mg tablet 25 mg PO BID PRN anxiety 02/15/23 02/15/23 Allergies Allergy/AdvReac Type Severity Reaction Status Date / Time erythromycin base AdvReac Mild Verified 09/01/22 13:48 Review of Systems Status of ROS: Reports: 10 or more systems reviewed and unremarkable except as noted in History and below [facility] Medical History Anxiety Chronic constipation Chronic fatigue Dog bite Fibromyalgia syndrome GERD (gastroesophageal reflux disease) MDD (major depressive disorder) Musculoskeletal back pain Musculoskeletal pain Obstructive sleep apnea Panic attack RLS (restless legs syndrome) Shoulder pain Surgical History H/O vaginal hysterectomy S/P cervical spinal fusion Social History Smoking Status: Never smoker Do you use any of these nicotine containing products: None Second hand tobacco smoke exposure: No How often do you have a drink containing alcohol: never How often do you have six or more drinks on one occasion: Never AUDIT-C Alcohol total score: 0 Non-prescribed substance use: denies use service: No Exam Narrative: Exam Narrative: Const: Well-nourished, Well-developed, in mild distress Eyes: PERRL, no conjunctival injection, and symmetrical lids ENMT: Atraumatic external nose and ears. Moist mucous membranes. Tenderness of the right maxillary sinus Neck: Symmetric, trachea midline, No thyromegaly. CVS: RRR, No murmurs or gallops. Peripheral pulses 2+ and equal in all extremities RESP: Unlabored respiratory effort. Clear to auscultation bilaterally. GI: Nontender/Nondistended, No rebound or guarding. MSK:Extremities w/o deformity, Normal Active ROM Skin: Warm, Dry. No rashes or lesions. Neuro: Normal Muscle tone, No focal neurological deficits. Psych: Awake, Alert, & Oriented x3. Appropriate mood and affect. Const: Vital Signs, click to edit/add: Vital Signs - 24 hr 02/15/23 14:29 02/15/23 15:49 Temperature 97.0 F L Pulse Rate [Right Pulse Oximeter] 67 70 Respiratory Rate 16 18 Blood Pressure [Ri ght Upper Arm] 161/85 H 122/68 Pulse Oximetry 97 98 Oxygen Delivery Me thod Room Air Room Air Course Vital Signs Vital signs: Initial Vital Signs Temperature 97.0 F L 02/15/23 14:29 Temperature Source Temporal Artery Scan 02/15/23 14:29 Pulse Rate 67 02/15/23 14:29 Pulse Rhythm Regular 02/15/23 14:29 Respiratory Rate 16 02/15/23 14:29 Blood Pressure 161/85 H 02/15/23 14:29 Blood Pressure Mean 110 H 02/15/23 14:29 Blood Pressure Position Sitting 02/15/23 14:29 Pulse Oximetry 97 02/15/23 14:29 Oxygen Delivery Method Room Air 02/15/23 14:29 Vital Signs Temperature 97.0 F L 02/15/23 14:29 Pulse Rate 67 02/15/23 14:29 Respiratory Rate 16 02/15/23 14:29 Blood Pressure 161/85 H 02/15/23 14:29 Pulse Oximetry 97 02/15/23 14:29 Oxygen Delivery Method Room Air 02/15/23 14:29 Temperature 97.0 F L 02/15/23 14:29 Pulse Rate 70 02/15/23 15:49 Respiratory Rate 18 02/15/23 15:49 Blood Pressure 122/68 02/15/23 15:49 Pulse Oximetry 98 02/15/23 15:49 Oxygen Delivery Method Room Air 02/15/23 15:49 Medical Decision Making MDM Narrative Medical decision making narrative: Patient is a 62-year-old female presenting emergency department for a headache. She has had headaches like this before. She states it starts in her right maxillary sinus and goes to her os septal region in her forehead. She denies any nausea at this time but does states she is nauseated earlier had 1 episode of emesis. She did take some pain medication at home without improvement in her symptoms. Migraine cocktail of compazine, Benadryl, a L of normal saline and Toradol. Since she has had headaches like this before is most likely a migraine and very unlikely to be any kind of intracranial bleeds. I do not believe CT scan is necessary. After this she says his symptoms were improving. She still has some pain around her sinuses and likely a sinusitis. Symptoms started to they most likely viral and antibiotics are not indicated at this time. I spoke to her about using sinus medication at home and she states she understands. She states she will try Afrin in the explained her not to use it more than 3 days. Discharge Plan Discharge Clinical Impression: Headache Qualifiers: Headache type: unspecified Headache chronicity pattern: acute headache Intractability: not intractable Qualified Code(s): R51.9 - Headache, unspecified Sinusitis Qualifiers: Sinusitis location: maxillary Chronicity: acute Recurrence: not specified as recurrent Qualified Code(s): J01.00 - Acute maxillary sinusitis, unspecified Patient Disposition: Home, Self-Care Condition: Stable Instructions: Acute Headache (DC) Additional Instructions: Follow-up with the primary care provider. Return for new worsening symptoms. He can try using home size medications such as Afrin but do not use the Afrin for more than 3 days. Prescriptions: No Action hydrocodone-acetaminophen 5-325 mg tablet 1 tab PO Q6H PRN Patient Comments: TAKE ONE TABLET BY MOUTH EVERY FOUR TO SIX HOURS NEEDED FOR CHRONIC PAIN. DO NOT EXCEED 3 TABLETS IN 24 HOURS; must last 30 days. USE DAE amlodipine 2.5 mg tablet 2.5 mg PO DAILY amitriptyline 10 mg tablet 20 mg PO DAILY Patient Comments: TAKE TWO TABLETS BY MOUTH DAILY omeprazole 20 mg capsule,delayed release(DR/EC) 20 mg PO DAILY Patient Comments: Take 1 Capsule (20 mg) by mouth once daily before a meal ferrous sulfate 325 mg (65 mg iron) tablet,delayed release (DR/EC) 325 mg PO DAILY Patient Comments: Take 1 Tablet (325 mg) by mouth once daily. buspirone 15 mg tablet 15 mg PO BID Patient Comments: TAKE 1.5 TABLETS TWICE A DAY. fluvoxamine 100 mg tablet 300 mg PO DAILY Patient Comments: Take 2-3 tablets by mouth once daily in the mid-to-late afternoon, as directed. (Sertraline has been stopped) estradiol 0.025 mg/24 hr patch weekly 1 patch transdermal .weekly Patient Comments: Apply 1 Patch on dry, clean, hairless skin once weekly hydroxyzine HCl 25 mg tablet 25 mg PO BID PRN (Reason: anxiety) Follow Up/Referrals: Geno Mendoza DO [Primary Care Provider] - Stand Alone Forms: DEQ Info Instructions
[2023-02-15] MEDS: 0.9 % SODIUM CHLORIDE 1000 ml 1,000 ML IV (14:53)
[2023-02-15] MEDS: KETOROLAC 30 MG/ML inj IVP (15:00)
[2023-02-15] MEDS: diphenhydrAMINE 50 MG/ML inj 25 MG IVP (15:01)
[2023-02-15] MEDS: PROCHLORPERAZINE 5 MG/ML VIAL 10 MG IV (15:04)
[2023-02-15 15:49] VITALS: BP 122/68; PULSE 70; RESP 18; O2SAT 98
== END 2023-02-15 16:57 | disposition home or self-care (01) ==
PROVIDERS: Emergency Provider Student in an Organized Health Care Education/Training Program; PCP Family Medicine
DX: R51.9 Headache, unspecified (principal); J01.00 Acute maxillary sinusitis, unspecified
CPT/HCPCS: 96374; 96375; 99283; 99284; J0780; J1200; J1885; J7030

== ENCOUNTER 2023-07-23 15:22 | Emergency (ER) | payer OTHER, SELFPAY ==
[2023-07-23 15:42] VITALS: BP 133/79; PULSE 87; RESP 16; TEMP 36.4; O2SAT 95; BMI 24.7
--- NOTE | 2023-07-23 15:45 | CRLHL7_ITS ---
For Patients: As a result of the Cures Act, medical imaging exams and procedure reports are released immediately into your electronic medical record. You may view this report before your referring provider. If you have questions, please contact your health care provider. INDICATION: Crush injury right hand. FINDINGS: Three views of the right hand were obtained. There is no acute fracture or dislocation. IMPRESSION: No acute bone abnormality. Dictated by Amilcar Mena MD @ 07/23/2023 4:16:34 PM (Electronically Signed)
--- NOTE | 2023-07-23 17:45 | ED.UPPEXIN ---
HPI - Extremity Injury (Upper) General Time Seen by Provider: 17:45 Date Seen: 07/23/23 Chief Complaint: Extremity Pain/Injury, Upper Stated Complaint: R hand injury Time Seen by Provider: 07/23/23 17:45 Source: patient and RN notes reviewed Mode of arrival: ambulatory Limitations: no limitations History of Present Illness HPI narrative: Mildred is a very pleasant 62-year-old female with history of chronic pain, current employee of [employer] who comes to the emergency room with an injury to her right hand. She states she was at work and had bumped the back of her right hand against a corner. She he notes that later she noticed that her hand was starting to swell and was rather purple. She had an ice pack on for a while but was advised by her employer to come to the emergency room to get checked out. Here in the emergency room she has some debris on her hand that she states from the ice pack that broke open. She is able to flex and extend her fingers. She is left-hand dominant. She has not taken anything for pain but is on chronic fentanyl patch and has Vicodin at home for fibromyalgia and chronic fatigue. Related Data Home Medications Medication Instructions Recorded Confirmed amitriptyline 10 mg tablet 20 mg PO DAILY 02/07/22 07/23/23 amlodipine 2.5 mg tablet 2.5 mg PO DAILY 02/07/22 07/23/23 buspirone 15 mg tablet 15 mg PO BID 02/07/22 07/23/23 hydrocodone 5 mg-acetaminophen 325 1 tab PO Q6H PRN 02/07/22 07/23/23 mg tablet omeprazole 20 mg capsule,delayed 20 mg PO DAILY 02/07/22 07/23/23 release estradiol 0.025 mg/24 hr weekly 1 patch transdermal .weekly 09/01/22 07/23/23 transdermal patch fluvoxamine 100 mg tablet 300 mg PO DAILY 09/01/22 07/23/23 hydroxyzine HCl 25 mg tablet 25 mg PO BID PRN anxiety 02/15/23 07/23/23 fentanyl 12 mcg/hr transdermal 1 patch topical Q3D 07/23/23 07/23/23 patch fentanyl 25 mcg/hr transdermal 1 patch topical Q3D 07/23/23 07/23/23 patch Allergies Allergy/AdvReac Type Severity Reaction Status Date / Time erythromycin base AdvReac Mild Verified 07/23/23 15:40 Review of Systems Status of ROS: Reports: 6 or more systems reviewed and unremarkable except as noted in History and below [facility] History Anxiety Chronic constipation Chronic fatigue Dog bite Fibromyalgia syndrome GERD (gastroesophageal reflux disease) MDD (major depressive disorder) Musculoskeletal back pain Musculoskeletal pain Obstructive sleep apnea Panic attack RLS (restless legs syndrome) Shoulder pain Surgical History H/O vaginal hysterectomy ?Z90.710 - Acquired absence of both cervix and uterus (ICD-10) S/P cervical spinal fusion ?Z98.1 - Arthrodesis status (ICD-10) Social History Smoking Status: Never smoker Do you use any of these nicotine containing products: None Second hand tobacco smoke exposure: No How often do you have a drink containing alcohol: never How often do you have six or more drinks on one occasion: Never AUDIT-C Alcohol total score: 0 Non-prescribed substance use: denies use service: No Exam Narrative: Exam Narrative: Patient is alert and oriented. Very pleasant woman in no acute distress. Examination of her right hand shows a hematoma on the dorsum of her hand mainly over the 3rd 4th and 5th metacarpals distally. She really has no pain with palpation over the MCPs. She is able to flex extend her fingers in her sensation is fully intact. Const: Vital Signs, click to edit/add: Vital Signs - 24 hr 07/23/23 15:42 Temperature 97.6 F Pulse Rate [Pulse Oximeter] 87 Respiratory Rate 16 Blood Pressure [Ri ght Upper Arm] 133/79 Pulse Oximetry 95 Oxygen Delivery Me thod Room Air Documenting provider has reviewed patient's vital signs: yes Course Course ED Course: X-ray has been ordered by our nursing staff. Vital Signs Vital signs: Initial Vital Signs Temperature 97.6 F 07/23/23 15:42 Temperature Source Temporal Artery Scan 07/23/23 15:42 Pulse Rate 87 07/23/23 15:42 Pulse Rhythm Regular 07/23/23 15:42 Pulse Strength 3+ Normal 07/23/23 15:42 Respiratory Rate 16 07/23/23 15:42 Blood Pressure 133/79 07/23/23 15:42 Blood Pressure Mean 97 07/23/23 15:42 Blood Pressure Position Sitting 07/23/23 15:42 Pulse Oximetry 95 07/23/23 15:42 Oxygen Delivery Method Room Air 07/23/23 15:42 Vital Signs Temperature 97.6 F 07/23/23 15:42 Pulse Rate 87 07/23/23 15:42 Respiratory Rate 16 07/23/23 15:42 Blood Pressure 133/79 07/23/23 15:42 Pulse Oximetry 95 07/23/23 15:42 Oxygen Delivery Method Room Air 07/23/23 15:42 Temperature 97.6 F 07/23/23 15:42 Pulse Rate 87 07/23/23 15:42 Respiratory Rate 16 07/23/23 15:42 Blood Pressure 133/79 07/23/23 15:42 Pulse Oximetry 95 07/23/23 15:42 Oxygen Delivery Method Room Air 07/23/23 15:42 MDM - Extremity Injury (Upper) MDM Narrative Medical decision making narrative: 1. Right hand injury-hematoma has formed. Oma is not currently on any anticoagulation. It appears stable at this time. For comfort I do fashion a splint that she states does make her hand feel better. She may wear this for the next 48 hours. When she returns to work next week she may wear as needed. I did construct a work note to suggest that if needed. I discussed with Oma the use of pain medication in which case with this injury I would use nonnarcotic medications such as ibuprofen or Tylenol. She states that she does have stronger pain medication at home. Ice to this area at least 3 times daily for 20 minutes. 2. Disposition-home at this time. Return or seek medical attention for worsening symptoms. Medical Records Attestation: I reviewed the patient's medical records. Imaging Data Hand x-ray: Attestation: I have reviewed the pertinent imaging results. My impression: No obvious fractures. Radiologist's impression: Three views of the right hand were obtained. There is no acute fracture or dislocation. IMPRESSION: No acute bone abnormality. Discharge Plan Discharge Clinical Impression: Hematoma Injury of hand, right Qualifiers: Encounter type: initial encounter Qualified Code(s): S69.91XA - Unspecified injury of right wrist, hand and finger(s), initial encounter Patient Disposition: Home, Self-Care Condition: Improved Additional Instructions: Recommend splinting for the next 48 hours. Upon return to work if you need to replace the splint for a day or so that would be okay. Try to keep ice on this area over the Jak wrap. At least 20 minutes a day 3 times a day. You may take your normal pain pill regimen at home if needed. Seek medical attention for worsening symptoms. Prescriptions: No Action hydrocodone-acetaminophen 5-325 mg tablet 1 tab PO Q6H PRN Patient Comments: TAKE ONE TABLET BY MOUTH EVERY FOUR TO SIX HOURS NEEDED FOR CHRONIC PAIN. DO NOT EXCEED 3 TABLETS IN 24 HOURS; must last 30 days. USE DAE amlodipine 2.5 mg tablet 2.5 mg PO DAILY amitriptyline 10 mg tablet 20 mg PO DAILY Patient Comments: TAKE TWO TABLETS BY MOUTH DAILY omeprazole 20 mg capsule,delayed release(DR/EC) 20 mg PO DAILY Patient Comments: Take 1 Capsule (20 mg) by mouth once daily before a meal buspirone 15 mg tablet 15 mg PO BID Patient Comments: TAKE 1.5 TABLETS TWICE A DAY. fluvoxamine 100 mg tablet 300 mg PO DAILY Patient Comments: Take 2-3 tablets by mouth once daily in the mid-to-late afternoon, as directed. (Sertraline has been stopped) estradiol 0.025 mg/24 hr patch weekly 1 patch transdermal .weekly Patient Comments: Apply 1 Patch on dry, clean, hairless skin once weekly hydroxyzine HCl 25 mg tablet 25 mg PO BID PRN (Reason: anxiety) fentanyl 25 mcg/hr patch 72 hour 1 patch topical Q3D fentanyl 12 mcg/hr patch 72 hour 1 patch topical Q3D Follow Up/Referrals: Geno Mendoza DO [Primary Care Provider] - Stand Alone Forms: [employer] Info Instructions
== END 2023-07-23 18:03 | disposition home or self-care (01) ==
LOC: ED 17:57
PROVIDERS: Emergency Provider Family Medicine; PCP Family Medicine
DX: S60.221A Contusion of right hand, initial encounter (principal); W22.8XXA Striking against or struck by other objects, initial encounter; Y99.0 Civilian activity done for income or pay
CPT/HCPCS: 73130; 99283

== ENCOUNTER 2024-05-20 19:44 | Emergency (ER) | payer OTHER, SELFPAY ==
[2024-05-20 20:10] VITALS: BP 133/78; PULSE 79; RESP 16; TEMP 37.2; O2SAT 94; BMI 27.0
--- NOTE | 2024-05-20 21:36 | ED.BACK ---
HPI - Back Pain/Injury General Time Seen by Provider: 21:36 Date Seen: 05/20/24 Chief Complaint: Back Injury/Pain Stated Complaint: Back pain/injury - WC Time Seen by Provider: 05/20/24 21:35 Source: patient, RN notes reviewed and old records reviewed Mode of arrival: ambulatory Limitations: no limitations History of Present Illness HPI Narrative: Oma is a very pleasant 63-year-old female with history of chronic pain currently on fentanyl patch gabapentin and hydrocodone who comes emergency room with concerns regarding a work injury. 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 Somehow they were placed in a cart and the cart tipped and they were catapulted against Latoya's back. They hit her on the right lower back buttock and slid down her right leg. She has been able to walk since that time. She did try some ice on her lower back and it helped quite a bit. This happened at approximately 1830 hours. No vomiting or abdominal pain. Has not noticed any blood in her urine. Related Data Home Medications ?Medication ?Instructions ?Recorded ?Confirmed amitriptyline 10 mg tablet 20 mg PO DAILY 02/07/22 05/20/24 amlodipine 2.5 mg tablet 2.5 mg PO DAILY 02/07/22 05/20/24 buspirone 15 mg tablet 15 mg PO BID 02/07/22 05/20/24 hydrocodone 5 mg-acetaminophen 325 1 tab PO Q6H PRN 02/07/22 05/20/24 mg tablet omeprazole 20 mg capsule,delayed 20 mg PO DAILY 02/07/22 05/20/24 release estradiol 0.025 mg/24 hr weekly 1 patch transdermal .weekly 09/01/22 05/20/24 transdermal patch fluvoxamine 100 mg tablet 300 mg PO DAILY 09/01/22 05/20/24 hydroxyzine HCl 25 mg tablet 25 mg PO BID PRN anxiety 02/15/23 05/20/24 fentanyl 12 mcg/hr transdermal 1 patch topical Q3D 07/23/23 05/20/24 patch fentanyl 25 mcg/hr transdermal 1 patch topical Q3D 07/23/23 05/20/24 patch clonazepam 0.5 mg tablet 0.5 mg PO QPM 05/20/24 05/20/24 dextroamphetamine-amphetamine 10 PO 05/20/24 mg tablet gabapentin 300 mg capsule 300 mg PO DAILY 05/20/24 05/20/24 Previous Rx's ?Medication ?Instructions ?Recorded ciprofloxacin HCl 250 mg tablet 250 mg PO BID #10 tabs 05/20/24 (Cipro) Allergies Allergy/AdvReac Type Severity Reaction Status Date / Time erythromycin base AdvReac Mild Verified 07/23/23 15:40 Review of Systems Status of ROS: Reports: 10 or more systems reviewed and unremarkable except as noted in History and below PFSH [facility], [facility] Medical History Musculoskeletal pain ?M79.18 - Myalgia, other site (ICD-10) Dog bite ?W54.0XXA - Bitten by dog, initial encounter (ICD-10) Musculoskeletal back pain ?M54.9 - Dorsalgia, unspecified (ICD-10) Shoulder pain ?M25.519 - Pain in unspecified shoulder (ICD-10) RLS (restless legs syndrome) ?G25.81 - Restless legs syndrome (ICD-10) Panic attack ?F41.0 - Panic disorder [episodic paroxysmal anxiety] (ICD-10) MDD (major depressive disorder) ?F32.9 - Major depressive disorder, single episode, unspecified (ICD-10) GERD (gastroesophageal reflux disease) ?K21.9 - Gastro-esophageal reflux disease without esophagitis (ICD-10) Fibromyalgia syndrome ?M79.7 - Fibromyalgia (ICD-10) Chronic fatigue ?R53.82 - Chronic fatigue, unspecified (ICD-10) Chronic constipation ?K59.09 - Other constipation (ICD-10) Obstructive sleep apnea ?G47.33 - Obstructive sleep apnea (adult) (pediatric) (ICD-10) Anxiety ?F41.9 - Anxiety disorder, unspecified (ICD-10) Surgical History H/O vaginal hysterectomy ?Z90.710 - Acquired absence of both cervix and uterus (ICD-10) S/P cervical spinal fusion ?Z98.1 - Arthrodesis status (ICD-10) Social History Smoking Status: Never smoker Do you use any of these nicotine containing products: None Second hand tobacco smoke exposure: No How often do you have a drink containing alcohol: never How often do you have six or more drinks on one occasion: Never AUDIT-C Alcohol total score: 0 Non-prescribed substance use: denies use service: No Exam Narrative: Exam Narrative: Alert and oriented. No acute distress. Walking without difficulty. No respiratory distress. Heart with regular rate and rhythm lungs are clear. No CVA tenderness with percussion. No bruising of the flanks. Mild superficial scratches not compromising the skin over the posterior superior iliac spine. No underlying discomfort with palpation. No pain with palpation down thoracic or lumbar spine. Mild discomfort noted over the greater trochanter. No pain with palpation down the ear posterior aspect of the leg. Const: Vital Signs, click to edit/add: Vital Signs - 24 hr 05/20/24 20:10 05/20/24 22:58 05/20/24 22:59 Temperature 99 F 99 F 99 F Pulse Rate [Pulse Oximeter] 79 71 71 Respiratory Rate 16 16 16 Blood Pressure [Ri ght Upper Arm] 133/78 125/80 125/80 Pulse Oximetry 94 94 Oxygen Delivery Me thod Room Air Room Air Documenting provider has reviewed patient's vital signs: yes Course Course ED Course: Will obtain urinalysis is patient is complaining of some mild discomfort in the flank. Ensure there is no evidence of hematuria. Reevaluation(s) Reevaluation #1: Urinalysis suggests UTI. In discussion with patient she was treated for UTI approximately 2 weeks ago. Initially treated with Macrobid but then received a call and switch to Cipro. She was at the [facility]. Upon further discussion she does note that something is ?there?. Agrees to treatment with Cipro tonight and follow up with her primary. Vital Signs Vital signs: Initial Vital Signs Temperature 99 F 05/20/24 20:10 Temperature Source Temporal Artery Scan 05/20/24 20:10 Pulse Rate 79 05/20/24 20:10 Respiratory Rate 16 05/20/24 20:10 Blood Pressure 133/78 05/20/24 20:10 Blood Pressure Mean 96 05/20/24 20:10 Pulse Oximetry 94 05/20/24 20:10 Oxygen Delivery Method Room Air 05/20/24 20:10 Vital Signs Temperature 99 F 05/20/24 20:10 Pulse Rate 79 05/20/24 20:10 Respiratory Rate 16 05/20/24 20:10 Blood Pressure 133/78 05/20/24 20:10 Pulse Oximetry 94 05/20/24 20:10 Oxygen Delivery Method Room Air 05/20/24 20:10 Temperature 99 F 05/20/24 22:59 Pulse Rate 71 05/20/24 22:59 Respiratory Rate 16 05/20/24 22:59 Blood Pressure 125/80 05/20/24 22:59 Pulse Oximetry 94 05/20/24 22:58 Oxygen Delivery Method Room Air 05/20/24 22:58 Medications Administered Medications: Discontinued Medications Generic Name Dose Route Start Last Admin Trade Name Brandan PRN Reason Stop Dose Admin Ciprofloxacin 250 mg 05/20/24 22:42 05/20/24 22:54 Ciprofloxacin 250 Mg Tablet PO 05/20/24 22:43 250 mg ONCE ONE Administration MDM - Back Pain/Injury MDM Narrative Medical decision making narrative: 1. UTI-will treat with Cipro 250 mg p.o. b.i.d. x5 days. First dose of Cipro tonight. Will await urine culture. Push fluids. Also talked about doing cranberry juice twice daily. Return to the ER for fever chills and as needed. 2. Right flank and buttock pain injury-patient noted to have a heavy bag of cement hit her in the back. She did not get knocked down. There is no external signs of trauma. She notes that ice makes it much better. She already has a fentanyl patch and [place] for breakthrough pain at home. We do not feel that she needs more at this time. Did talk about further evaluation but she agrees to not pursue CT or any further radiological studies at this time unless she is worsening. The 3. Disposition-home at this time. Return for worsening symptoms and as needed. Medical Records Attestation: I reviewed the patient's medical records. Lab Data Attestation: I reviewed the patient's lab results. Labs: Lab Results 05/20/24 Range/Units 21:44 Urine Color Yellow (Yellow) Urine Appearance Clear (Clear) Urine pH 7.0 (5.0-8.5) Ur Specific [place] 1.025 (1.000-1.030) Urine Protein Negative (Negative) Urine Glucose (UA) Negative (Negative) Urine Ketones Negative (Negative) Urine Blood 1+ A (Negative) Urine Nitrite Negative (Negative) Urine Bilirubin Negative (Negative) Urine Urobilinogen 0.2 (0.2-1.0) Ur Leukocyte Esterase Trace A (Negative) Urine RBC 10-25 A (0-2) Urine WBC 5-10 A (0-5) Ur Squamous Epith Cells Moderate A (None-Few) Urine Bacteria Few A (None) Discharge Plan Discharge Clinical Impression: Back injury, UTI (urinary tract infection) Patient Disposition: Home, Self-Care Condition: Improved Additional Instructions: Start antibiotic tonight. Please follow-up with your primary to let them known that you had another bladder infection. We will wait and see with the urine culture says to ensure that we treated you with the correct antibiotic. That will not be available for 1-3 days. You may use your regular pain medications for any discomfort from the injury. If you start noticing increasing swelling bruising, you are vomiting or have a fever or have abdominal plain please return to the emergency room for further evaluation. Prescriptions: New ciprofloxacin HCl [Cipro] 250 mg tablet 250 mg PO BID Qty: 10 0RF No Action hydrocodone-acetaminophen 5-325 mg tablet 1 tab PO Q6H PRN Patient Comments: TAKE ONE TABLET BY MOUTH EVERY FOUR TO SIX HOURS NEEDED FOR CHRONIC PAIN. DO NOT EXCEED 3 TABLETS IN 24 HOURS; must last 30 days. USE DAE amlodipine 2.5 mg tablet 2.5 mg PO DAILY amitriptyline 10 mg tablet 20 mg PO DAILY Patient Comments: TAKE TWO TABLETS BY MOUTH DAILY omeprazole 20 mg capsule,delayed release(DR/EC) 20 mg PO DAILY Patient Comments: Take 1 Capsule (20 mg) by mouth once daily before a meal buspirone 15 mg tablet 15 mg PO BID Patient Comments: TAKE 1.5 TABLETS TWICE A DAY. fluvoxamine 100 mg tablet 300 mg PO DAILY Patient Comments: Take 2-3 tablets by mouth once daily in the mid-to-late afternoon, as directed. (Sertraline has been stopped) estradiol 0.025 mg/24 hr patch weekly 1 patch transdermal .weekly Patient Comments: Apply 1 Patch on dry, clean, hairless skin once weekly hydroxyzine HCl 25 mg tablet 25 mg PO BID PRN (Reason: anxiety) fentanyl 25 mcg/hr patch 72 hour 1 patch topical Q3D fentanyl 12 mcg/hr patch 72 hour 1 patch topical Q3D dextroamphetamine-amphetamine 10 mg tablet PO clonazepam 0.5 mg tablet 0.5 mg PO QPM gabapentin 300 mg capsule 300 mg PO DAILY Follow Up/Referrals: Geno Mendoza DO [Primary Care Provider] - Stand Alone Forms: [employer] Info Instructions
--- OUTSIDE RECORDS SUMMARY | 2024-05-20 21:52 | XMS_ITS | Clinical Summary ---
Author Organization [employer] [facility] Address [place], [place] [address] Care Team Providers Care Shower Enclosure Installer Name Role Phone Geno Mendoza DO Primary Care Provider [phone] Allergies Active Allergy Reactions Criticality Noted Date Comments Azithromycin *Unknown 08/05/2015 Bupropion Intolerance-Can't Take 06/10/2014 Medications Medication Sig Dispensed Refills Start Date End Date Status Cholecalciferol, Vitamin D3, (VITAMIN D-3) 1,000 unit Chew Take 1 Tab by mouth once daily. Active methocarbamoL (ROBAXIN) 500 mg tabletIndications: Myofascial pain,Multiple joint pain Take 2 Tablets (1,000 mg) by mouth every 6 hours if needed for Muscle Spasm PO 1st choice. 120 Tablet 12/11/2022 Active hydrOXYzine HCL (ATARAX) 25 mg tabletIndications: Generalized anxiety disorder Take one tablet (25 mg) by mouth twice daily as needed for anxiety. 60 Tablet 1 02/28/2023 Active dextroamphetamine- amphetamine (ADDERALL) 10 mg tabletIndications: Chronic fatigue Take 1 Tablet (10 mg) by mouth once daily. As needed 30 Tablet 03/11/2023 Active clonazePAM (KLONOPIN) 0.5 mg tabletIndications: Generalized anxiety disorder Take 0.5 Tablets (0.25 mg) by mouth at bedtime. 15 Tablet 02/28/2023 Active busPIRone (BUSPAR) 30 mg tabletIndications: Generalized anxiety disorder Take 1 Tablet (30 mg) by mouth two times daily. 60 Tablet 2 02/28/2023 Active amitriptyline (ELAVIL) 10 mg tabletIndications: Depression, recurrent (HC) Take 2 Tablets (20 mg) by mouth at bedtime. 60 Tablet 2 02/28/2023 Active QUEtiapine (Seroquel) 25 mg tabletIndications: Generalized anxiety disorder Take 0.5-1 Tablets (12.5-25 mg) by mouth 2 times daily if needed (anxiety). 60 Tablet 03/07/2023 Active omeprazole (PRILOSEC) 20 mg Delayed-Release capsuleIndications :Gastroesophageal reflux disease without esophagitis Take 1 Capsule (20 mg) by mouth once daily before a meal. 90 Capsule 3 08/30/2023 Active naloxone (NARCAN) 4 mg/actuation nasal sprayIndications:C hronic pain syndrome Inhale 1 [place] into affected nostril(s) each time if needed for Patient Diff To Arouse or Resp Rate < 8 / min. Additional doses may be given every 2 to 3 minutes until emergency medical assistance arrives. 1 Each 09/21/2023 Active amLODIPine (NORVASC) 2.5 mg tabletIndications: HTN (hypertension) Take 1 Tablet (2.5 mg) by mouth once daily. 90 Tablet 3 10/02/2023 Active mirtazapine (REMERON) 15 mg tablet Take 15 mg by mouth at bedtime. 11/17/2023 Active estradiol 0.025 mg/24 hr (CLIMARA) 0.025 mg/24 hr patchIndications:M enopausal symptoms Apply 1 Patch on dry, clean, hairless skin AND REPLACE once weekly. 12 Patch 3 12/30/2023 Active gabapentin (NEURONTIN) 300 mg capsuleIndications :Restless legs syndrome (RLS) TAKE ONE CAPSULE BY MOUTH ONE TIME DAILY 60 Capsule 02/05/2024 Active fentaNYL (DURAGESIC) 12 mcg/hr transdermal patchIndications:C hronic pain syndrome,Spinal stenosis in cervical region,Pain medication agreement,Spondylo sis of lumbar region without myelopathy or radiculopathy APPLY 1 PATCH AND CHANGE EVERY 72 HOURS. USE DATES: 04/29/24- 10 Patch 04/29/2024 Active fentaNYL (DURAGESIC) 25 mcg/hr transdermal patchIndications:C hronic pain syndrome,Spinal stenosis in cervical region,Pain medication agreement,Spondylo sis of lumbar region without myelopathy or radiculopathy Apply 1 Patch on dry, clean, hairless skin every 72 hours. Apply 1 Patch on dry, clean, hairless skin every 72 hours. Use dates: 04/29/24- 10 Patch 04/29/2024 Active HYDROcodone-acetam inophen (5-325 mg/tablet)Indicati ons:Chronic pain syndrome,Spinal stenosis in cervical region,Pain medication agreement,Spondylo sis of lumbar region without myelopathy or radiculopathy Take one tablet by mouth three times a day if needed for chronic pain. USE DATES 04/29/24- 90 Tablet 04/29/2024 Active terbinafine (LAMISIL) 1 % creamIndications:T inea pedis of both feet As directed two times daily. 28.4 g 05/03/2024 Active fentaNYL (DURAGESIC) 12 mcg/hr transdermal patchIndications:C hronic pain syndrome,Spinal stenosis in cervical region,Pain medication agreement,Spondylo sis of lumbar region without myelopathy or radiculopathy APPLY 1 PATCH AND CHANGE EVERY 72 HOURS. USE DATES: 03/29/24- 10 Patch 03/28/2024 4 Discontinued (Reorder (E-cancel not sent)) fentaNYL (DURAGESIC) 25 mcg/hr transdermal patchIndications:C hronic pain syndrome,Spinal stenosis in cervical region,Pain medication agreement,Spondylo sis of lumbar region without myelopathy or radiculopathy Apply 1 Patch on dry, clean, hairless skin every 72 hours. Use dates: 03/29/24- 10 Patch 03/28/2024 4 Discontinued (Reorder (E-cancel not sent)) HYDROcodone-acetam inophen (5-325 mg/tablet)Indicati ons:Chronic pain syndrome,Spinal stenosis in cervical region,Pain medication agreement,Spondylo sis of lumbar region without myelopathy or radiculopathy Take one tablet by mouth three times a day if needed for chronic pain. USE DATES 03/29/24- 90 Tablet 03/28/2024 4 Discontinued (Reorder (E-cancel not sent)) cephalexin (KEFLEX) 500 mg capsuleIndications :urinary tract infection Take 1 Capsule (500 mg) by mouth two times daily for 7 days. 14 Capsule 04/29/2024 ciprofloxacin (CIPRO) 250 mg tabletIndications: urinary tract infection Take 1 Tablet (250 mg) by mouth two times daily for 3 days. 6 Tablet 05/08/2024 Hospital, Clinic, or Other Facility Administered Medication Ordered Dose Route Frequency Start Date End Date Status fentaNYL (PF) (SUBLIMAZE) 50 mcg/mL injection 25-400 mcgIndications:Myofasci al pain 25 - 400 mcg IV EACH TIME PRN 04/22/2024 04/22/2024 Ended midazolam (PF) (VERSED) injection 0.5-6 mgIndications:Myofascia l pain 0.5 - 6 mg IV EACH TIME PRN 04/22/2024 04/22/2024 Ended propofol emulsion (DIPRIVAN) 10 mg/mL 10-150 mgIndications:Myofascia l pain 10 - 150 mg IV CONTINUOUS 04/22/2024 04/23/2024 Ended Active Problems Problem Noted Date Diagnosed Date Controlled substance agreement signed 09/21/2023 Overview (10/06/2023): [facility] Hannah Capellan CMA 8:56 AM 10/06/23 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 12/27/2022 Controlled substance agreement signed 12/22/2022 Overview (12/22/2022): Kemi Garcia, MOTOR VEHICLES SUPERVISOR - Psychiatry 12/21/2022 Bilateral keratitis sicca 01/26/2018 Nuclear senile cataract of both eyes 01/26/2018 Hyperopia of both eyes with astigmatism and pres byopia 12/12/2016 Moderate major depression 03/21/2016 S/P cervical discectomy 03/21/2016 Spondylosis of lumbar region without myelopathy or radiculopathy 01/12/2015 Other malaise and fatigue 07/20/2010 Intervertebral disc protrusion 02/11/2010 CERVICAL DISC DEGENERATION 11/23/2009 Chronic pain syndrome 10/20/2009 Migraine headache 09/24/2009 Herniated cervical intervertebral disc 9 MANUEL 02/10/2008 AHI- 23 12/18/2021 AHI- 17 05/27/20 08 Overview (05/27/2008): Uses cpap Bulging disc 03/25/2008 Disorders of sacrum 09/28/2007 Pain in joint, lower leg 05/23/2007 Myalgia and myositis, unspecified 03/05/2007 Insomnia 10/05/2006 Cervicalgia 06/26/2006 Spinal stenosis in cervical region 06/26/2006 Acquired absence of both cervix and uterus Resolved Problems Problem Noted Date Diagnosed Date Resolved Date Controlled substance agreement signed 08/31/2022 10/06/2023 Overview (08/31/2022): Loco Mayberry .................... 08/31/2022 9:25 AM Controlled substance agreement signed 08/19/2021 10/06/2023 Overview (08/19/2021): Baudilio Pandya MD [facility] Fanny Gutierrez CMA....08/17/2021 2:31 PM Controlled substance agreement signed 09/07/2020 10/06/2023 Overview (09/07/2020): Baudilio Pandya MD [facility] Fanny Gutierrez CMA....08/20/2020 9:32 AM Controlled substance agreement signed 08/21/2019 09/07/2020 Overview (08/21/2019): Baudilio Pandya MD [facility] Fanny Gutierrez CMA....08/21/2019 8:35 AM Controlled substance agreement signed 10/03/2018 08/21/2019 Overview (05/10/2019): Baudilio Pandya MD [facility] Fanny Gutierrez CMA....10/03/18 12:39 PM Controlled substance agreement signed 09/20/2017 05/10/2019 Overview (11/29/2017): Baudilio Pandya MD [facility] Fanny Gutierrez CMA....11/29/2017 9:06 AM 90 day reminder sign on 11/29/17 Fanny Gutierrez WAGON DRILL OPERATOR....11/29/2017 9:11 AM Controlled substance agreement signed 09/20/2017 05/10/2019 Overview (09/20/2017): Baudilio Pandya MD [facility] Fanny Gutierrez WAGON DRILL OPERATOR....09/20/2017 12:48 PM Dermatochalasia 12/23/2014 12/12/2016 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 01/12/2015 Lumbar spondylosis 08/07/2013 5 Pain medication agreement 08/22/2012 Opioid dependence 09/14/2010 01/12/2015 RLQ abdominal pain 09/14/2010 5 Intervertebral disc protrusion 02/11/2010 02/11/2010 Intervertebral disc protrusion 02/11/2010 02/11/2010 Intervertebral disc protrusion 09/26/2008 05/01/2015 Low back pain 08/04/2008 01/12/2015 Degeneration of cervical intervertebral disc 7 05/01/2015 Migraine, unspecified, witho ut mention of intractable migraine without mention of status migrainosus 10/05/2006 05/01/2015 Depressive disorder 10/05/2006 05/01/20 15 Anxiety state, unspecified 10/05/2006 1 Encounters Date Type Department Care Team Description 05/16/2024 Telephone [facility] [address] [place] [address] Baudilio Pandya MD Handle Rounder Operator Plan (TPIs) 05/08/2024 Telephone [facility] [address] [place] [address] Sahra Gonzales, Medication Management (cephalexin (KEFLEX) 500 mg capsule) 05/03/2024 11:30 AM CDT Office Visit [facility] [address] [place] [address] Sahra Gonzales, DO Toe Pain/problem 05/03/2024 Travel 05/02/2024 Nurse Triage [facility] [address] [place] [address] Geno Mendoza, DO Toe Pain/problem 04/29/2024 1:25 PM CDT Office Visit [facility] [address] [place] [address] Sahra Gonzales DO URI (chest congestion); Urinary Problem (lower back pain and burning with urination/took azol) 04/29/2024 Travel 04/29/2024 Refill [facility] [address] [place] [address] Margareth Horvath PA Refill Request 04/25/2024 Telephone [facility] [address] [place] [address] Baudilio Pandya MD Prior Authorization (XR RF ABLATION LUMBAR 2 LEV RT (peer to peer)) 04/22/2024 11:00 AM CDT Procedure Only [facility] [address] [place] [address] Baudilio Pandya MD Procedure (TPI) 04/22/2024 9:00 AM CDT Office Visit [facility] [address] [place] [address] Everardo Camacho, PhD, LP Pain 04/22/2024 8:49 AM CDT - 04/22/2024 11:59 PM CDT Hospital Encounter [facility] [address] [place] [address] Baudilio Pandya MD 04/22/2024 Travel 04/19/2024 Telephone [facility] [address] [address] Humera Hathaway NP 04/19/2024 Telephone [facility] [address] [place] [address] Baudilio Pandya MD Handle Rounder Operator Plan 04/19/2024 Telephone [facility] [address] [place] [address] Baudilio Pandya MD Handle Rounder Operator Plan (Patient requesting or Monday for TPI./) 04/15/2024 Telephone [facility] [address] [place] [address] Baudilio Pandya MD Handle Rounder Operator Plan (request TPI for her back./) 04/05/2024 Telephone [facility] [address] [place] [address] Humera Hathaway NP Medication Management; Appointment 04/02/2024 Telephone [facility] [address] [place] [address] Baudilio Pandya MD Results ( Rt Lumbar MBB #2 done on 11/24/2023.) 03/28/2024 Telephone [facility] [address] [place] [address] Margareth Horvath PA Refill Request from Last 3 Months Immunizations Name Administration Dates Next Due COVID-19 vaccine ([employer] 30mcg/0.3mL) PF, MDV 07/15/2021 Influenza, IIV3 (Age >=3 years) 04/19/20 12,05/16/2011,04/17/2011,05/27/20 10,05/01/2008,05/22/2007,06/26/2006,05/28,05/19/2004,06/06/2000,05/21/1999 Influenza, IIV4 05/18/2023, 2,06/15/2020,05/17/20 17,05/02/2016 Influenza, IIV4 (=>6mos) MDV 04/23/2019,05/18/20 18 Influenza, Injectable, Mdck, Quadrivalent, W/preservative 04/20/2021 Td (Age >=7 Years) 06/20/2002 Tdap 02/09/2015,12/20/2011 Zoster (Zostavax-ZVL, live) 10/30/2012 Family History Medical History Relation Name Comments Cancer-colon Father Hyperlipidemia Father Hypertension Father Hyperlipidemia Mother Hypertension Mother Other Mother Cancer-breast Paternal Aunt Cancer-colon Sister 1 Thyroid Disease Sister 1 Amblyopia Sister 3 Cancer-breast Sister 3 Relation Name Status Comments Brother Alive Father Alive Maternal Grandfather Maternal Grandmother Mother Alive Paternal Aunt Paternal Grandfather Paternal Grandmother Sister 1 Alive Sister 2 Alive Sister 3 Alive Sister 4 Alive Son 1 Alive Son 2 Alive Social History Tobacco Use Types Packs/Day Years Used Date Smoking Tobacco: Never Smokeless Tobacco: Never Tobacco Cessation:Counseling Given: Yes Alcohol Use Standard Drinks/Week Comments Not Currently 0 (1 standard drink = 0.6 oz pur e alcohol) PHQ-2 Answer Date Recorded PHQ-2 TOTAL SCORE 4 04/22/2024 Social Connections Answer Date Recorded Frequency of Communication with Friends and Fami ly 4 08/30/2023 Financial Resource Strain Answer Date R ecorded Difficulty of Paying Living Expenses 3 08/30/2023 Difficulty of Paying Living Expenses Not on file 08/30/2023 Food Insecurity Answer Date Recorded Do you worry your food will run out before you are able to buy more? 1 08/30/2023 Transportation Needs Answer Date Record ed Lack of Transportation (Medical) 1 08/30/2023 Housing Stability Answer Date Recorded What is your housing situation today? 1 08/30/2023 Sex and Gender Information Value Date Recorded Sex Assigned at Not on file Gender Identity Not on file Sexual Orientation Not on file Obstetrics History Last Filed Vital Signs Vital Sign Reading Time Taken Comments Blood Pressure 155/81 05/03/2024 11:42 AM CDT Pulse 69 05/03/2024 11:42 AM CDT Temperature 37.4 ??C (99.4 ??F) 04/29/2024 1:26 PM CD T Respiratory Rate 16 04/22/2024 10:1 7 AM CDT Oxygen Saturation 98% 05/03/2024 11: 42 AM CDT Inhaled Oxygen Concentration - - Weight 62.5 kg (137 lb 12.8 oz) 024 11:42 AM CDT Height 156 cm (5' 1.42) 08/30/2023 11: 14 AM HEAD USHER Body Mass Index 25.68 08/30/2023 11:14 AM HEAD USHER Plan of Treatment Upcoming Encounters Date Type Department Care Team (Late st Contact Info) Description 05/22/2024 10:30 AM CDT Office Visit [facility] [address] [place] [address] Margareth Horvath PA [address] [place] [address] 05/27/2024 9:00 AM CDT Office Visit [facility] [address] [place] [address] Everardo Camacho, PhD, LP [address] [facility] [address] [place] [address] Health Maintenance Due Date Last Done Comments Pneumococcal series for age 6-64 (1 of 2 - PCV) 12/06/1965 Zoster (shingles) series for age 50+ (2 of 3) 12/25/2012 10/30/2012 COVID-19 vaccine series (4 - season) 2024 05/18/2023, 07/15/2021, 12/06/2020 Influenza for age 50-64 03/31/2024 05/18/20, 04/18/2022, 04/20/2021, Additional history exists Mammogram for age 45-75 04/24/2024 04/24/20, 08/13/2021, 06/22/2020, Additional history exists BMI (ht and wt on same day) for age 18+ 08/30/2024 08/30/2023, 12/27/2022, 12/21/2022, Additional history exists Tetanus booster 02/09/2025 02/09/2015, 11/29, 06/20/2002 Depression screening for age 12+ 04/30/2025 04/30/2024, 04/25/2024, 04/22/2024, Additional history exists Fecal testing sDNA-FIT ([place] guard) for age 45-75 11/27/2026 11/28/2023 Lipids for age 45-75 09/18/2028 09/18/2023, 08/25/19 17 Tdap Completed 02/09/2015, 12/20/2011 Hepatitis C screening for ag e 18-79 Completed 08/25/2016 HIV for age 15-65 Completed 09/18/2023 Medical Devices Implanted Type Area Underwriting Intern Device Identifier Shelf Expiration Date Model / Serial / Lot Block Cheko [id number] - Stissue Id [id number] Implanted:Qty: 1 on 11/03/[address] [facility] N/A: Cervical Vertebrae Medtronic 07/16/[id number]# / TISSUE ID [id number] / [id number] Block Cheko [id number] - Stissue Id [id number] Implanted:Qty: 1 on 11/03/[address] [facility] N/A: Cervical Vertebrae Medtronic 04/30/[id number]# / TISSUE ID [id number] / [id number] Bone [id number] [employer] Acc - [id number] Implanted:Qty: 1 on 03/21/2016 by Mian Ivory MD at [facility] N/A: Cervical Vertebrae Medtronic Spine/Ortho 09/30/2018 [id number]# / [id number] / [id number] Description:implanted C4-5 [id number] - [id number] Implanted:Qty: 1 on 03/21/2016 by Mian Ivory MD at [facility] N/A: Cervical Vertebrae Medtronic [id number] / / Description:implant in C4-5, Medtronic 15 mm Zero Plate [id number] - [id number] Implanted:Qty: 4 on 03/21/2016 by Mian Ivory MD at [facility] N/A: Cervical Vertebrae Medtronic [id number] / / Description:implantedC4-5 Medtronic 3.5 x 13 mm self drill screws x 4 Explanted Type Area Underwriting Intern Device Identifier Shelf Expiration Date Model / Serial / Lot Screw Self Tap 4.0x14mm Fixed Ang - [id number] Implanted:Qty: 2 on 11/03/[address] [facility] Explanted:Qty: 2 on 03/21/2016 by Mian Ivory MD at [facility] Spine Implants Bilateral: Cervical Vertebrae Medtronic [id number]# / / LOAD # [id number] Screw Spinal [id number] Self Tap Titnm [place] - [id number] Implanted:Qty: 3 on 11/03/[address] [facility] Explanted:Qty: 3 on 03/21/2016 by Mian Ivory MD at [facility] Spine Implants Bilateral: Cervical Vertebrae SOFAMOR DANEK [id number]# / / LOAD 4 [id number] [id number] Plate Cerv Ant 40mm Atlantisvision [id number] - [id number] Implanted:Qty: 1 on 11/03/2008 at [facility] Explanted:Qty: 1 on 03/21/2016 by Mian Ivory MD at [facility] N/A: Cervical Vertebrae MERRY DANIELS [id number]# / [id number] / LOAD # [id number] Description:C5-C7 Procedures Procedure Name Priority Date/Time Associated Diagnosis Comments URINE CULTURE Routine 04/29/2024 1:38 PM CDT URINALYSIS MICROSCOPIC Routine 04/29/2024 1:38 PM CDT Dysuria URINALYSIS MACROSCOPIC - [facility] ONLY POC DIP ([facility]) Routine 04/29/2024 1:36 PM CDT Dysuria SDNA-FIT EXTERNAL (COLOGUARD) Routine 11/28/2023 1:30 AM CDT Screening for colon cancer ANTI HIV 1/2 Routine 09/18/2023 12:38 PM HEAD USHER Screening for HIV (human immunodeficiency virus) LIPID PANEL W REFLEX MEASURED LDL Routine 09/18/2023 12:38 PM HEAD USHER Screening for cardiovascular condition XR MAMMO AYUSH BILAT SCREEN Routine 04/24/2023 1:52 PM CDT Visit for screening mammogram ANTI HCV Routine 08/25/2016 7:47 AM HEAD USHER Need for hepatitis C screening test from Last 3 Months or Most Recently Relevant to Health Maintenance Results * (ABNORMAL) URINALYSIS MICROSCOPIC (04/29/2024 1:38 PM CDT) WBC UA > OR = 60(A) < OR = 5 /HPF [facility] RBC UA 3-10(A) < OR = 2 /HPF [facility] SQUAMOUS EPITHELIAL CELLS UA 6-10(A) < OR = 5 /HPF [facility] BACTERIA UA MODERATE(A ) NONE SEEN /HPF [facility] CALCIUM OXALATE CRYSTALS MODERATE(A ) NONE OR FEW /HPF [facility] HYALINE CAST NONE SEEN NONE SEEN /LPF [facility] NOTE UA [facility] Comment: This urine was analyzed for the presence of WBC, RBC, bacteria, casts, and other formed elements. Only those elements seen were reported. Urine URINE SPECIMEN / Unknown 04/29/2024 1:38 PM CDT 04/29/2024 1:38 PM CDT Sahra Gonzales DO URINE Performing Organization Address [facility]/State/ZIP Co de Phone Number [employer] [facility] [address] [place] [address], [facility] [address] [place] [address] * (ABNORMAL) URINE CULTURE (04/29/2024 1:38 PM CDT) CULTURE, URINE, ROUTINE SEE NOTE(A) [facility] Comment: ??CULTURE, URINE, ROUTINE ?Micro Number: ?[id number] ??Test Status: ? Final ??Specimen Source: ?? Urine, clean catch ??Specimen Quality: ??Adequate ??Result: ?Greater than 100,000 CFU/mL of Escherichia coli ?E.coli ?INT ?? HAILY ?? AMOX/CLAVULANATE ? S ? <=2 ?? AMP/SULBACTAM ?S ? <=2 ?? CEFAZOLIN ?NR ?<=4 2 ?? CEFEPIME ? S ? <=0.12 ?? CEFTAZIDIME ?S ? <=1 ?? CEFTRIAXONE ?S ? <=0.25 ?? CIPROFLOXACIN ?S ? <=0.06 ?? GENTAMICIN ? S ? <=1 ?? IMIPENEM ? S ? <=0.25 ?? LEVOFLOXACIN ? S ? <=0.12 ?? MEROPENEM ?S ? <=0.25 ?? NITROFURANTOIN ? S ? 32 ?? PIP/TAZOBACTAM ? S ? <=4 ?? TRIMETHOPRIM/SULFA ? S ? <=20 S = Susceptible ??I = Intermediate ??R = Resistant ??NS = Not susceptible SDD = Susceptible Dose Dependent ??* = Not Tested ??NR = Not Reported NN = See Therapy Comments THERAPY COMMENTS ?Note 1: ?For infections other than uncomplicated UTI ?caused by E. coli, K. pneumoniae or P. mirabilis: ?Cefazolin is resistant if HAILY > or = 8 mcg/mL. ?(Distinguishing susceptible versus intermediate ?for isolates with HAILY < or = 4 mcg/mL requires ?additional testing.) ?Note 2: ?For uncomplicated UTI caused by E. coli, ?K. pneumoniae or P. mirabilis: Cefazolin is ?susceptible if HAILY <32 mcg/mL and predicts ?susceptible to the oral agents cefaclor, cefdinir, ?cefpodoxime, cefprozil, cefuroxime, cephalexin ?and loracarbef. 04/29/2024 1:38 PM CDT 04/29/2024 1:38 PM CDT Sahra Gonzales DO MICROBIOLOGY [facility] [address] [place] [address], [place] [phone] [facility] [address] [place] [address] * (ABNORMAL) POCT Urinalysis Dipstick Only (04/29/2024 1:36 PM CDT) [facility] 5.5 5.0 - 8.0 [facility] SPECIFIC GRAVITY > OR = 1.030 1.001 - 1.035 [facility] Comment: Specific [place] values resulted are outside the analytical measurement range of this device. Recommend repeat/additional testing as clinically indicated. GLUCOSE NEGATIVE NEGATIVE [facility] BILIRUBIN NEGATIVE NEGATIVE [facility] KETONES NEGATIVE NEGATIVE [facility] OCCULT BLOOD 3+(A) NEGATIVE [facility] PROTEIN 1+(A) NEGATIVE [facility] NITRITE NEGATIVE NEGATIVE [facility] LEUKOCYTE ESTERASE 1+(A) NEGATIVE [facility] Urine URINE SPECIMEN / Unknown 04/29/2024 1:36 PM CDT 04/29/2024 1:37 PM CDT Sahra Gonzales DO URINE Performing Organization Address City/[facility]/ZIP Co de Phone Number [facility] [address] [place] [address], [place] [phone] [facility] [address] [place] [address] * SDNA-FIT EXTERNAL (COLOGUARD) (11/28/2023 1:30 AM CDT) Pathologist [facility] NONINV COLON CA DNA+OCC BLD SCRN STL-IMP Negative Negative 12/15/2023 5:04 PM CDT [facility] (CLIA #:[id number]) Comment: NEGATIVE TEST RESULT. A negative Cologuard result indicates a low likelihood that a colorectal cancer (CRC) or advanced adenoma (adenomatous polyps with more advanced pre-malignant features) ??is present. The chance that a person with a negative Cologuard test has a colorectal cancer is less than 1 in 1500 (negative predictive value >99.9%) or has an ??advanced adenoma is less than ??5.3% (negative predictive value 94.7%). These data are based on a prospective cross-sectional study of 10,000 individuals at average risk for colorectal cancer who were screened with both Cologuard and colonoscopy. (Avi High et al, N Engl J Med 2014;370(14):1286- 1297) The normal value (reference range) for this assay is negative. COLOGUARD RE-SCREENING RECOMMENDATION: Periodic colorectal cancer screening is an important part of preventive healthcare for asymptomatic individuals at average risk for colorectal cancer. ??Following a negative Cologuard result, the [employer] Society and U.S. Multi-Society Task Force screening guidelines recommend a Cologuard re-screening interval of 3 years. References: [employer] Guideline for Colorectal Cancer Screening: https://www.cancer.org/cancer/chmks-qjeuvu-gqvniv/ewtezuswe-idpzleakz-zdsbelz/ac s-rec ommendations.html.; Diaz DK, Jaspreet CR, Jody CrookK, Colorectal Cancer Screening: Recommendations for Physicians and Patients from the U.S. Multi-Society Task Force on Colorectal Cancer Screening , Am J Gastroenterology 2017; 112:7662-6014. TEST DESCRIPTION: Composite algorithmic analysis of stool DNA-biomarkers with hemoglobin immunoassay. ?? Quantitative values of individual biomarkers are not reportable and are not associated with individual biomarker result reference ranges. Cologuard is intended for colorectal cancer screening of adults of either sex, 45 years or older, who are at average-risk for colorectal cancer (CRC). Cologuard has been approved for use by the U.S. FDA. The performance of Cologuard was established in a cross sectional study of average-risk adults aged 50-84. Cologuard performance in patients ages 45 to 49 years was estimated by sub-group analysis of near-age groups. Colonoscopies performed for a positive result may find as the most clinically significant lesion: colorectal cancer [4.0%], advanced adenoma (including sessile serrated polyps greater than or equal to 1cm diameter) [20%] or non- advanced adenoma [31%]; or no colorectal neoplasia [45%]. These estimates are derived from a prospective cross-sectional screening study of 10,000 individuals at average risk for colorectal cancer who were screened with both Cologuard and colonoscopy. (Avi Carrillo al, N Engl J Med 2014;370(14):8935-3972.) Cologuard may produce a false negative or false positive result (no colorectal cancer or precancerous polyp present at colonoscopy follow up). A negative Cologuard test result does not guarantee the absence of CRC or advanced adenoma (pre-cancer). The current Cologuard screening interval is every 3 years. ([employer] Cancer Society and U.S. Multi-Society Task Force). Cologuard performance data in a 10,000 patient pivotal study using colonoscopy as the reference method can be accessed at the following location: www.Provade/results. Additional description of the Cologuard test process, warnings and precautions can be found at www.[employer].com. Stool specimen (specimen) (Rectum) 11/28/2023 1:30 AM CDT 11/29/2023 9:54 AM CDT Geno Mendoza DO URINE [facility] (CLIA #:[id number]) Glenny [address] [place] [address], * LIPID PANEL W REFLEX MEASURED LDL [[id number]] (09/18/2023 12:38 PM HEAD USHER) CHOLESTEROL,TOTAL 198 100 - 199 mg/dL 09/18/2023 10:47 PM HEAD USHER [facility] Comment: Cholesterol, Total Reference Ranges Desirable <200 mg/dL Borderline 200-239 mg/dL High >=240 mg/dL TRIGLYCERIDES 104 <150 mg/dL 09/18/2023 10:47 PM HEAD USHER [facility] HDL CHOLESTEROL 83 >40 mg/dL 10:47 PM HEAD USHER [facility] NON-HDL CHOLESTEROL 115 <145 mg/dl 09/18/2023 10:47 PM HEAD USHER [facility] CHOL/HDL RATIO 2.39 <4.50 09/18/2023 10:47 PM HEAD USHER [facility] LDL CHOLESTEROL 94 <=130 mg/dL 09/18/2023 10:47 PM HEAD USHER [facility] VLDL CHOLESTEROL 21 <=30 mg/dL 09/18/2023 10:47 PM HEAD USHER [facility] PROVIDER ORDERED STATUS RANDOM 09/18/2023 10:47 PM HEAD USHER [facility] Blood BLOOD SPECIMEN / Unknown Venipuncture / Unknown 09/18/2023 12:38 PM HEAD USHER 09/18/2023 12:39 PM HEAD USHER Geno Mendoza DO CHEMISTRY Performing Organization Address City/[facility]/ZIP Co de Phone Number [facility] [address] [place] [address], [place] * ANTI HIV 1/2 [34790.0] (09/18/2023 12:38 PM HEAD USHER) HIV-1/HIV-2 SCREEN Non-Reacti ve Non-Reacti ve 09/18/2023 10:24 PM HEAD USHER [facility] Comment:HIV-1 p24 and HIV-1/ HIV-2 Ab Not Detected. Blood BLOOD SPECIMEN / Unknown Venipuncture / Unknown 09/18/2023 12:38 PM HEAD USHER 09/18/2023 12:39 PM HEAD USHER Geno Mendoza DO SEND OUTS Performing Organization Address City/[facility]/ZIP Co de Phone Number [facility] [address] [place] [address], [place] * XR MAMMO AYUSH BILAT SCREEN (04/24/2023 1:52 PM CDT) Anatomical Region Laterality Modality BREASTS, Breast Left, Breast Right Bilateral Mammography Impressions 04/24/2023 2:41 PM CDT ??There is no radiographic evidence for malignancy. ??Recommend annual mammograms. MAMMOGRAM ASSESSMENT: ??ACR 1 Negative PATIENTS: You will also receive a letter with your examination results in an easy to read format. ??If you have questions about your results, please contact your referring provider. Narrative 04/24/2023 2:41 PM CDT For Patients: As a result of the Century Cures Act, medical imaging exams and procedure reports are released immediately into your electronic medical record. You may view this report before your referring provider. If you have questions, please contact your health care provider. XR MAMMO AYUSH BILAT SCREEN [[id number]] CLINICAL HISTORY: ??This is an asymptomatic 62 y.o. patient. INDICATION FOR EXAM: Mammogram Screening. TECHNIQUE: CC & MLO views were obtained. ??This study was evaluated with the assistance of Computer-Aided Detection. Breast Tomosynthesis was used in interpretation. COMPARISON FILM: Yes 08/13/21 [facility] 06/22/20 [facility] FINDINGS: ??The breasts are heterogeneously dense, which may obscure small masses. There are no dominant masses, suspicious micro calcifications or areas of architectural distortion. Geno Mendoza DO MAMMO * ANTI HCV [34390.2] (08/25/2016 7:47 AM HEAD USHER) HEPATITIS C ANTIBODY Non-Reacti ve Non-Reacti ve 08/25/2016 2:32 PM HEAD USHER [facility] Blood BLOOD SPECIMEN / Unknown Venipuncture / Unknown 08/25/2016 7:47 AM HEAD USHER 08/25/2016 7:47 AM HEAD USHER Narrative [facility] - 08/25/2016 2:32 PM HEAD USHER Antibodies to HCV not detected; does not exclude the possibility of exposure to HCV. Geno Mendoza DO SEND OUTS [facility] [address] [place] [address], from Last 3 Months or Most Recently Relevant to Health Maintenance Advance Directives * Full Code (Latest Code Status on File) Date Activated Date Inactivated Comments 03/21/2016 12:52 AM 03/22/2016 4:51 PM * Full Code Date Activated Date Inactivated Comments 02/16/2015 9:35 AM 02/16/2015 3:12 PM * Full Code Date Activated Date Inactivated Comments 09/14/2010 4:18 PM 09/14/2010 7:15 PM * Full Code Date Activated Date Inactivated Comments 11/03/2008 3:57 PM 11/05/2008 4:12 PM * Full Code Date Activated Date Inactivated Comments 11/03/2008 3:49 AM 11/03/2008 3:57 PM Care Teams Shower Enclosure Installer Relationship Specialty Start Date End Date Geno Mendoza DO [address] [place] [address] PCP - General Family Practice 03/21/14
--- OUTSIDE RECORDS SUMMARY | 2024-05-20 21:53 | XMS_ITS | Clinical Summary ---
Author Organization [place] Address [address] [facility] [place] [address] Care Team Providers Care Teacher Ballet Name Role Phone Prabha Rodriguez MD Unavailable Baudilio Pandya Unavailable [phone] Geno Mendoza Primary Care Provider [phone] Allergies Active Allergy Reactions Criticality Noted Date Comments Bupropion Hydrobromide High 11/10/2011 shaking Medications Medication Sig Dispensed Refills Start Date End Date Status amitriptyline (ELAVIL) 25 MG tablet Take 50 mg by mouth At Bedtime. Active fentanyl (DURAGESIC) 25 MCG/HR patch [address] 1 patch onto the skin every 72 hours. Active lidocaine (LIDODERM) 5 % patch Place 1 patch onto the skin every 24 hours. Active Sennosides (SENNA-LAX PO) Take 2 tablets by mouth 2 times daily. Am & PM Active hydrocodone-acetami nophen (VICODIN) 5-500 MG per tablet Take 1-2 tablets by mouth every 4 hours as needed. Active cholecalciferol (VITAMIN D) 1000 UNIT tablet Take 1 tablet by mouth daily. Active polyethylene glycol (MIRALAX) powder Take 1 capful by mouth daily. Active Hypertonic Nasal Wash (SINUS RINSE NA) [place] in nostril daily. Active mometasone (NASONEX) 50 MCG/ACT nasal spray 2 sprays by Both Nostrils route daily. Active citalopram (CELEXA) 40 MG tablet Take 40 mg by mouth daily. Active estradiol (VIVELLE-DOT) 0.1 MG/24HR patchIndications:Me nopause Place 1 patch onto the skin twice a week. 24 patch 3 09/08/2011 Active pramipexole (MIRAPEX) 0.25 MG tablet Take 0.25 mg by mouth as needed. Active cyclobenzaprine (FLEXERIL) 10 MG tablet Take 10 mg by mouth. 1 tablet at bedtime Active modafinil (PROVIGIL) 200 MG tablet Take 200 mg by mouth. 1 tablet every night Active clonazePAM (KLONOPIN) 0.5 MG tablet 1. 5 mg at bedtime and up to 1 mg an additional time prn. Prescribed by psychiatry. 60 tablet 02/27/2012 Active ALPRAZolam (XANAX) 0.5 MG tablet Take 0.5 mg by mouth 3 times daily as needed. Active estradiol (VAGIFEM) 10 MCG TABSIndications:Atr ophic vaginitis Place 1 tablet vaginally twice a week. 8 tablet 11 04/19/2012 Active Active Problems Problem Noted Date Diagnosed Date Fibromyalgia 11/10/2011 Obstructive sleep apnea on CPAP 11/10/2011 Chronic fatigue syndrome 11/10/2011 Cervicalgia 11/10/2011 Chronic pain disorder 11/10/2011 Depression 11/10/2011 Anxiety 11/10/2011 CARDIOVASCULAR SCREENING; LDL GOAL LESS THAN 160 05/30/2010 Resolved Problems Problem Noted Date Diagnosed Date Resolved Date Health Fpc 07/25/2013 01/15/2024 Overview: Status: No Active Care Coordination Cork Cutter: Leticia HUGGINSW, [employer] See Letters for [facility] Care Plan Immunizations Name Administration Dates Next Due Influenza (IIV3) PF 04/19/2012,04/17/2011 TDAP Vaccine (Adacel) 12/20/2011 Family History Medical History Relation Comments Lipids Father C.A.D. Mother Cardiovascular Mother Hypertension Mother Lipids Mother Relation Status Comments Daughter Alive Father Alive Maternal Grandfather Maternal Grandmother Mother Alive Paternal Grandfather Paternal Grandmother Son Alive Social History Tobacco Use Types Packs/Day Years Used Date Smoking Tobacco: Never Smokeless Tobacco: Never Alcohol Use Standard Drinks/Week Comments No 0 (1 standard drink = 0.6 oz pur e alcohol) Adolescent Education Answer Date Record ed Getting School Help Needed Not on file 04/22 Sex and Gender Information Value Date Recorded Sex Assigned at Not on file Gender Identity Not on file Sexual Orientation Not on file Last Filed Vital Signs Vital Sign Reading Time Taken Comments Blood Pressure 159/104 06/02/2023 3:32 PM CDT Pulse 91 06/02/2023 3:32 PM CDT Temperature 36.9 ??C (98.4 ??F) 06/02/2023 3:32 PM CD T Respiratory Rate 16 06/02/2023 3:32 PM CDT Oxygen Saturation 98% 06/02/2023 3:32 PM CDT Inhaled Oxygen Concentration - - Weight 61.2 kg (135 lb) 03/08/2023 9:02 PM CDT Height 156.2 cm (5' 1.5) 03/08/2023 9:02 PM CDT Body Mass Index 25.09 03/08/2023 9:02 PM CDT Plan of Treatment Health Maintenance Due Date Last Done Comments ADVANCE CARE PLANNING 1959 ANNUAL REVIEW OF HM ORDERS 1959 CT COLONOGRAPHY 1959 FLEX SIG 1959 sDNA (Cologuard) 1959 COLONOSCOPY 12/06/1969 HIV SCREENING 12/06/1974 HEPATITIS C SCREENING 12/06/1977 LIPID 1999 ZOSTER IMMUNIZATION (2 of 3) 12/25/2012 10/30/2012 COLORECTAL CANCER SCREENING 12/27/2012 FIT 12/27/2012 12/28/2011 GLUCOSE 09/08/2014 09/08/2011 PAP 10/05/2014 10/06/2011 MEDICARE ANNUAL WELLNESS VISIT 07/15/2022 07/15/2021, 07/15/2020 PHQ-2 (once per calendar year) 2023 COVID-19 Vaccine (2 - season) 2024 07/15/2021 INFLUENZA VACCINE (#1) 2024 , 04/20/2021, 06/15/2020, Additional history exists DTAP/TDAP/TD IMMUNIZATION (3 - Td or Tdap) 02/09/2025 02/09/2015, 12/20/2011, 06/20/2002 MAMMO SCREENING 04/24/2025 04/24/2023, 04/01, 08/13/2021, Additional history exists RSV VACCINE (1 - 1-dose 75+ series) 12/06/2034 HPV IMMUNIZATION Aged Out No longer e ligible based on patient's age to complete this topic MENINGITIS IMMUNIZATION Aged Out No l onger eligible based on patient's age to complete this topic Pneumococcal Vaccine: Pediatrics (0 to 5 Years) and At-Risk Patients (6 to 64 Years) Aged Out No longer eligible based on patient's age to complete this topic RSV MONOCLONAL ANTIBODY Aged Out No l onger eligible based on patient's age to complete this topic Procedures Procedure Name Priority Date/Time Associated Diagnosis Comments MA SCREENING DIGITAL BILATERAL Routine 03/09/2012 1:17 PM CDT Breast cancer screening FECAL COLORECTAL CANCER SCREEN FIT Routine 12/28/2011 11:18 AM CDT Colon cancer screening PAP IMAGED THIN LAYER SCREEN Routine 10/06/2011 12:00 PM LEGAL BILLING CLERK Routine health maintenance BASIC METABOLIC PANEL Routine 09/08/2011 1:46 PM LEGAL BILLING CLERK Fibromyalgia from Last 3 Months or Most Recently Relevant to Health Maintenance Results * Mammo Screening digital (bilat) (03/09/2012 1:17 PM CDT) Anatomical Region Laterality Modality Breast Bilateral Other 03/09/2012 1:17 PM CDT Impressions 03/15/2012 12:54 PM CDT SCREENING MAMMOGRAM, BILATERAL, DIGITAL w/CAD - March 09, 2012 BREAST SYMPTOMS: No current breast complaints. COMPARISON: ??[place], [place] 12/08/2003. PARENCHYMAL PATTERN: Heterogeneously dense, this lowers mammographic sensitivity. COMMENTS: No findings of suspicion for malignancy. ?? IMPRESSION: BI-RADS 1, NEGATIVE RECOMMENDATION: Annual screening mammography. Stephanie Vigil MD IMG MAMMOGRAPHY NISSA MOSS * Fecal colorectal cancer screen (FIT) (12/28/2011 11:18 AM CDT) Occult Blood Scn FIT Negative NEG [facility] Stool specimen (specimen) 12/28/2011 11:18 AM CDT 12/28/2011 11:23 AM CDT Stephanie Vigil MD LAB - STOOLS ORDERAB LES Performing Organization Address City/State/[facility] Co de Phone Number [facility] * PAP imaged thin layer, screen (10/06/2011 12:00 PM LEGAL BILLING CLERK) PAP EV Ramosath Report Patient Name: OMA BACON MR#: [id number] Specimen #: [id number] Collected: 10/06/2011 Received: 10/07/2011 Reported: 10/10/2011 11:57 Ordering Phy(s): NATACHA ELLIS SPECIMEN/STAIN PROCESS: Pap imaged thin layer prep screening (Surepath, FocalPoint with guided screening) ? Pap-Cyto x 1, Reflex HPV x 1 SOURCE: Cervical Pap imaged thin layer prep screening (Surepath, FocalPoint with guided screening) SPECIMEN ADEQUACY: Satisfactory for evaluation. -Transformation zone component present. CYTOLOGIC INTERPRETATION: Negative for Intraepithelial Lesion or Malignancy Electronically signed out by: HECTOR Conti (ASCP) Processed and screened at [facility] CLINICAL HISTORY: Post Menopausal, Papanicolaou Test Limitations: ??Cervical cytology is a screening test with limited sensitivity; regular screening is critical for cancer prevention; Pap tests are primarily effective for the diagnosis/preventi on of squamous cell carcinoma, not adenocarcinomas or other cancers. TESTING LAB LOCATION: [facility], [address] [place] [address] ??[id number] COLLECTION SITE: Client: ??[facility] Location: [facility] (B) [facility] Cytologic material (specimen) 10/06/2011 12:00 PM LEGAL BILLING CLERK 10/07/2011 9:18 AM LEGAL BILLING CLERK Natacha Ellis MD LAB - OPTIME C LINICAL SPECIMEN Performing Organization Address City/[facility] de Phone Number [facility] * Basic metabolic panel (Ca, Cl, CO2, Creat, Gluc, K, Na, BUN) (09/08/2011 1:46 PM LEGAL BILLING CLERK) Sodium 142 133 - 144 mmol/L [facility] Potassium 3.7 3.4 - 5.3 mmol/L [facility] Chloride 102 94 - 109 mmol/L [facility] Carbon Dioxide 28 20 - 32 mmol/L [facility] Anion Gap 12 6 - 17 mmol/L [facility] Glucose 90 60 - 99 mg/dL [facility] Comment:Non Fasting Urea Nitrogen 9 7 - 30 mg/dL [facility] Creatinine 0.76 0.52 - 1.04 mg/dL [facility] GFR Estimate 80 >60 mL/min/1.7 m2 [facility] GFR Estimate If Black >90 >60 mL/min/1.7 m2 [facility] Calcium 8.7 8.5 - 10.4 mg/dL [facility] Blood specimen (specimen) 09/08/2011 1:46 PM LEGAL BILLING CLERK 09/08/2011 1:47 PM LEGAL BILLING CLERK Natacha Ellis MD LAB - BLOOD OR DERABLES Performing Organization Address [facility] de Phone Number [facility] from Last 3 Months or Most Recently Relevant to Health Maintenance Care Teams Teacher Ballet Relationship Specialty Start Date End Date Geno Mendoza [address] [place], [place] [address] PCP - General 11/18/15 Prabha Rodriguez MD [address] [place], [place] [id number] 12/10/10 Baudilio Pandya [address] [place], [place] [phone] Pain Clinic 11/10/11
--- OUTSIDE RECORDS SUMMARY | 2024-05-20 21:53 | XMS_ITS ---
Author Organization [facility] Address [address] [place] [address] Care Team Providers Care Lasting Machine Operator Hand Method Name Role Phone Unavailable Unavailable Unavailable Surgery Details Not on file Complications Check Surgery Details section. Procedure Estimated Blood Loss Check Surgery Details section. Procedure Findings Check Surgery Details section. Procedure Specimens Taken Check Surgery Details section.
--- OUTSIDE RECORDS SUMMARY | 2024-05-20 21:53 | XMS_ITS | Clinical Summary ---
Author Organization [facility] Address [address] [place] [address] Care Team Providers Care Medical Lab Scientist Name Role Phone Elsewhere, Pcp Primary Care Provider Unavailabl e Source Comments Patient records contain information from all sites at [facility]. For routine questions regarding patient records, call [phone] during business hours, M-F 8:00 AM - 5:00 PM Central Time. Record requests for emergency care only can be directed to [phone] at any time.[facility] Allergies Active Allergy Reactions Criticality Noted Date Comments Azithromycin Other (see comments) 08/05/2015 Bupropion Anxiety 04/30/2013 Medications gabapentin (NEURONTIN) 600 mg tablet Take 3 tablets by mouth 3 (three) times a day. 6 Active LORazepam (ATIVAN) 1 mg tablet Take 0.5 tablets by mouth as needed. P.r.n. 5 Active desvenlafaxine (PRISTIQ) 50 mg 24 hr tablet Take 1 tablet by mouth daily. 5 Active dextroamphetami ne/amphetamine (ADDERALL ORAL) Take 0.5 tablets by mouth 3 (three) times a day as needed. prn 5 Active amitriptyline (ELAVIL) 50 mg tablet Take 0.25 tablets by mouth at bedtime. 5 Active biotin (MERIBIN) 5 mg capsule Take 2 capsules by mouth as needed. 3 Active HYDROCODONE-KELSIE TAMINOPHEN ORAL Take 1-2 tablets by mouth. Vicodin 5-500 mg tab . Pain; do not exceed 8 tablets per day. 3 Active dextroamphetami ne (DEXTROSTAT) 10 mg tablet Take 10 mg by mouth daily. Take 20 mg daily. [address] 1 patch on the skin once a week. 3 Active cholecalciferol (VITAMIN D3) 1,000 Unit capsule Take 1 capsule by mouth daily. 3 Active Boric Acid 600 mg capsule Insert 1 capsule (600 mg total) into the vagina daily. For 14 days 14 capsule 11 8 Active Additional Information Patient not taking.Reported on 12/20/2023 amLODIPine (NORVASC) 2.5 mg tablet Take 2.5 mg by mouth. 1 Active busPIRone (BUSPAR) 15 mg tablet Take 1.5 TABLETS BY MOUTH TWICE DAILY 1 Active clonazePAM (KlonoPIN) 0.5 mg tablet Take 0.5 mg by mouth at bedtime. 1 Active docusate sodium (COLACE) 100 mg capsule Take 100 mg by mouth. 6 Active fentaNYL (DURAGESIC) 12 mcg/hr patch APPLY 1 PATCH BY TRANSDERMAL ROUTE AND CHANGE EVERY 72 HOURS. USE DATES: 01/14/2021 - 02/12/2021 1 Active fentaNYL (DURAGESIC) 25 mcg/hr patch Apply 1 patch by transdermal route and change a new patch every 3 days. USE DATES: 01/14/2021 - 02/12/2021 1 Active midazolam (VERSED) 1 mg/mL injection Infuse 0.5-6 mg into a venous catheter. 1 Active naloxone (NARCAN) 4 mg/actuation nasal spray Administer into nostril(s). 9 Active naproxen (NAPROSYN) 250 mg tablet TAKE ONE TABLET BY MOUTH TWICE DAILY WITH MEALS NEEDED 1 Active omeprazole (PriLOSEC) [address] capsule TAKE ONE CAPSULE BY MOUTH ONE TIME DAILY before a meal 1 Active pramipexole (MIRAPEX) 0.5 mg tablet Take 0.5 mg by mouth at bedtime. 1 Active sertraline (ZOLOFT) 100 mg tablet Take 200 mg by mouth every morning. 1 Active HYDROcodone-kelsie taminophen (NORCO) 5-325 mg per tablet Take 1 tablet every 4 to 6 hours as needed for pain (max 3 tablets per day) use dates: 12/10/2020- 021 1 Active amitriptyline (ELAVIL) 10 mg tablet Take 20 mg by mouth daily. 2 Active methocarbamoL (ROBAXIN) 500 mg tablet Take 1,000 mg by mouth every 6 (six) hours as needed. 2 Active busPIRone (BUSPAR) 30 mg tablet Take 1.5 tablets by mouth 2 times daily. 3 Active gabapentin (NEURONTIN) 300 mg capsule Take 1 Capsule (300 mg) by mouth two times daily. 3 Active fluvoxaMINE (LUVOX) 100 mg tablet Take 2-3 tablets by mouth once daily in the mid-to-late afternoon, as directed. (Sertraline has been stopped) 2 Active Active Problems No known active problems Social History Tobacco Use Types Packs/Day Years Used Date Smoking Tobacco: Never Tobacco Cessation:Counseling Given: Not Answered Alcohol Use Standard Drinks/Week Comments Not Currently 0 (1 standard drink = 0.6 oz pur e alcohol) Nutrition Answer Date Recorded Nutrition: EVOO Fat Source Unknown 10/01 Nutrition: Servings of Fruits/Vegetables per Day Not on file 10/01/2020 Dental Answer Date Recorded Dental: Regular Dentist Unknown 10/02/19 21 Comments No Sex and Gender Information Value Date Recorded Sex Assigned at Not on file Legal Sex Female 7:53 AM ASSISTANT PROFESSOR OF DRAMA Gender Identity Female 05/30/2018 9:08 PM CDT Sexual Orientation Not on file Last Filed Vital Signs Vital Sign Reading Time Taken Comments Blood Pressure 131/79 12/20/2023 10:37 AM CDT Pulse 72 12/20/2023 10:37 AM CDT Temperature 36.9 ??C (98.5 ??F) 12/20/2023 10:37 AM C DT Respiratory Rate 16 09/22/2022 2:15 PM ASSISTANT PROFESSOR OF DRAMA Oxygen Saturation 97% 09/22/2022 2:15 PM ASSISTANT PROFESSOR OF DRAMA Inhaled Oxygen Concentration - - Weight 66.5 kg (146 lb 9.7 oz) 09/22/2022 2:12 P M ASSISTANT PROFESSOR OF DRAMA Height 157.5 cm (5' 2) 03/19/2021 9:48 AM CDT Body Mass Index 26.81 03/19/2021 9:48 AM CDT Plan of Treatment Health Maintenance Due Date Last Done Comments CT Colonography 1960 FIT 1960 Generalized Anxiety (AYESHA-7) 1960 Hepatitis C Screening 1960 Colonoscopy 01/16/2012 01/15/2002 Zoster Vaccines (2 of 3) 12/25/2012 10/30/2012 Controlled Substance Agreement 01/22/2021 Controlled Substance Monitoring (PHQ-9) 01/22/2021 Controlled Substance Monitoring 01/22/2021 Opioid Risk Tool (ORT) 01/22/2021 PEG assessment for Opioid therapy 01/22/2021 Opioid Use Disorder (OUD) Screening 01/22/2022 Depression Screening (Annual PHQ-2) 07/31/2023 COVID-19 Vaccine ( season) 2024 05/18/2023, 07/15/2021, 12/06/2020 Mammogram 04/24/2024 04/24/2023, 04/01, 08/13/2021 Influenza Vaccine (#1) 2024 , 04/18/2022, 04/20/2021, Additional history exists DTaP,Tdap,and Td Vaccines (3 - Td or Tdap) 02/09/2025 02/09/2015, 12/20/2011 Fasting Glucose for Diabetes Screening 09/18/2026 09/18/2023, 08/13/2021, 07/15/2020, Additional history exists Cologuard 12/14/2026 12/15/2023 Colorectal Cancer Screening 12/14/2026 Lipid (Cholesterol) Screening 09/18/2028 09/18/2023 HIV Screening Completed 12/29/2015 Pneumococcal vaccine (0-64 years) Aged Out No longer eligible based on patient's age to complete this topic Procedures Procedure Name Priority Date/Time Associated Diagnosis Comments HEMOGLOBIN A1C, B Routine 02/04/2016 4:2 3 PM CDT HIV-1/-2 AG AND AB SCREEN Routine 12/29/2015 2:51 PM CDT from Last 3 Months or Most Recently Relevant to Health Maintenance Results * Hemoglobin A1c (02/04/2016 4:23 PM CDT) [facility] Hemoglobin A1c, B 5.5 4.0 - 6.0 % [facility] 02/04/2016 4:23 PM CDT 02/04/2016 4:23 PM CDT us Gregorio Alcantara M.D. LAB BLOOD ADD-ON Final Resul t [facility] [address] [place] [address], [facility] * HIV-1/-2 Ag and Ab Screen (12/29/2015 2:51 PM CDT) [facility] HIV-1/-2 Ag and Ab Screen, S Negative Negative [facility] Comment: Negative result does not rule out HIV infection. If ? acute HIV infection is suspected in a high-risk ? individual, submit plasma specimen for HIV-1 RNA ? quantification test (HIVDQ) and/or HIV-2 DNA/RNA ? test (FHV2Q). ? 12/29/2015 2:51 PM CDT 12/29/2015 2:51 PM CDT Dorian Sandoval M.D., Ph.D. LAB MICROBIOLOGY - BLOO D ORDERABLES Final Result Performing Organization Address [facility]/State/[facility] Co de Phone Number [facility] [address] [place] [address], [facility] from Last 3 Months or Most Recently Relevant to Health Maintenance Insurance [employer] Care Teams Medical Lab Scientist Relationship Specialty Start Date End Date Elsewhere, Pcp PCP - General Family Medicine 03/19/21
--- OUTSIDE RECORDS SUMMARY | 2024-05-20 21:53 | XMS_ITS | Referral Summary ---
Author Organization [facility] Address [address] [place] [place] [address] Care Team Providers Care Tube Coverer Name Role Phone Prabha Rodriguez MD Unavailable Baudilio Pandya Unavailable [phone] Geno Mendoza Primary Care Provider [phone] Allergies Active Allergy Reactions Criticality Noted Date [...] Active Hypertonic Nasal Wash (SINUS RINSE NA) [place] in nostril daily. Active mometasone (NASONEX) 50 [...] Noted Date Diagnosed Date Resolved Date Health [facility] 07/25/2013 01/15/2024 Overview: Status: No Active Care Coordination Building Drafting Officer: Leticia HUGGINSW, 3D ARTIST See Letters for [facility] Care Plan Immunizations Name Administration Dates Next Due Influenza (IIV3) PF 04/19/2012,04/17/2011 TDAP Vaccine (Adacel) 12/20/2011 Social History Tobacco Use Types Packs/Day Years [...] 03/08/2023 9:02 PM CDT Plan of Treatment Not on file Procedures Procedure Name Priority Date/Time Associated Diagnosis Comments MA SCREENING DIGITAL BILATERAL Routine 03/09/2012 1:17 PM CDT Breast cancer screening FECAL COLORECTAL CANCER SCREEN FIT Routine 12/28/2011 11:18 AM CDT Colon cancer screening PAP IMAGED THIN LAYER SCREEN Routine 10/06/2011 12:00 PM COMBATANT DIVER QUALIFIED Routine health maintenance BASIC METABOLIC PANEL Routine 09/08/2011 1:46 PM COMBATANT DIVER QUALIFIED Fibromyalgia from Last 3 Months or Most Recently Relevant to Health Maintenance Results * Mammo Screening digital (bilat) (03/09/2012 1:17 PM CDT) Anatomical Region Laterality Modality Breast Bilateral Other 03/09/2012 1:17 PM CDT Impressions 03/15/2012 12:54 PM CDT SCREENING MAMMOGRAM, BILATERAL, DIGITAL w/CAD - March 09, 2012 BREAST SYMPTOMS: No current breast complaints. COMPARISON: ??[place], [place] 12/08/2003. PARENCHYMAL PATTERN: Heterogeneously dense, this lowers mammographic sensitivity. COMMENTS: No findings of suspicion for malignancy. ?? IMPRESSION: BI-RADS 1, NEGATIVE RECOMMENDATION: Annual screening mammography. Stephanie Vigil MD IMG MAMMOGRAPHY ORDE ISA * Fecal colorectal cancer screen (FIT) (12/28/2011 11:18 AM CDT) Occult Blood Scn FIT Negative NEG [facility] Stool specimen (specimen) 12/28/2011 11:18 AM CDT 12/28/2011 11:23 AM CDT Stephanie Vigil MD LAB - STOOLS ORDERAB LES [facility] * PAP imaged thin layer, screen (10/06/2011 12:00 PM COMBATANT DIVER QUALIFIED) PAP NIL [facility] Copath Report Patient Name: VITA BACON MR#: [id number] Specimen #: [id number] Collected: 10/06/2011 Received: 10/07/2011 Reported: 10/10/2011 11:57 [...] HECTOR Conti (ASCP) Processed and screened at [facility] CLINICAL HISTORY: Post Menopausal, Papanicolaou Test Limitations: ??Cervical cytology is a screening test with limited sensitivity; regular screening is critical for cancer prevention; Pap tests are primarily effective for the diagnosis/preventi on of squamous cell carcinoma, not adenocarcinomas or other cancers. TESTING LAB LOCATION: [facility], [address] [place] [address] ??[id number] COLLECTION SITE: Client: ??[facility] Location: [facility] (B) [facility] Cytologic material (specimen) 10/06/2011 12:00 PM COMBATANT DIVER QUALIFIED 10/07/2011 9:18 AM COMBATANT DIVER QUALIFIED Natacha Ellis MD LAB - OPTIME C LINICAL SPECIMEN Performing Organization Address [facility] Co de Phone Number [facility] * Basic metabolic panel (Ca, Cl, CO2, Creat, Gluc, K, Na, BUN) (09/08/2011 1:46 PM COMBATANT DIVER QUALIFIED) Sodium 142 133 - 144 mmol/L [facility] Potassium 3.7 3.4 - 5.3 mmol/L [facility] Chloride 102 94 - 109 mmol/L [facility] Carbon Dioxide 28 20 - 32 mmol/L [facility] Anion Gap 12 6 - 17 mmol/L [facility] Glucose 90 60 - 99 mg/dL [facility] Comment:Non Fasting Urea Nitrogen 9 7 - 30 mg/dL [facility] Creatinine 0.76 0.52 - 1.04 mg/dL [facility] GFR Estimate 80 >60 mL/min/1.7 m2 [facility] GFR Estimate If Black >90 >60 mL/min/1.7 m2 [facility] Calcium 8.7 8.5 - 10.4 mg/dL [facility] Blood specimen (specimen) 09/08/2011 1:46 PM COMBATANT DIVER QUALIFIED 09/08/2011 1:47 PM COMBATANT DIVER QUALIFIED Natacha Ellis MD LAB - BLOOD OR DERABLES Performing Organization Address [facility] de Phone Number [facility] from Last 3 Months or Most Recently Relevant to Health Maintenance Care Teams Tube Coverer Relationship Specialty Start Date End Date Ibrahima Mendozaher [address] [place] [address] PCP - General 11/18/15 Prabha Rodriguez MD [address] [place] [address] 12/10/10 Baudilio Pandya [address] [place], [place] [address] Pain Clinic 11/10/11
--- OUTSIDE RECORDS SUMMARY | 2024-05-20 21:53 | XMS_ITS | Referral Summary ---
Author Organization [facility] Address [address] [place] [address] Care Team Providers Care Factory Process Workers Name Role Phone Elsewhere, Pcp Primary Care Provider Unavailabl e Source Comments Patient records contain information from all sites at [facility]. For routine questions regarding patient records, call [phone] during business hours, M-F 8:00 AM - 5:00 PM Central Time. Record requests for emergency care only can be directed to [phone] at any time.[facility] Allergies Active Allergy Reactions Criticality Noted Date [...] on file Legal Sex Female 7:53 AM CHARGER Gender Identity Female 05/30/2018 9:08 PM CDT Sexual Orientation Not on file Last Filed Vital Signs Vital Sign Reading Time Taken Comments Blood Pressure 131/79 12/20/2023 10:37 AM CDT Pulse 72 12/20/2023 10:37 AM CDT Temperature 36.9 ??C (98.5 ??F) 12/20/2023 10:37 AM C DT Respiratory Rate 16 09/22/2022 2:15 PM CHARGER Oxygen Saturation 97% 09/22/2022 2:15 PM CHARGER Inhaled Oxygen Concentration - - Weight 66.5 kg (146 lb 9.7 oz) 09/22/2022 2:12 P M CHARGER Height 157.5 cm (5' 2) 03/19/2021 9:48 AM CDT Body Mass Index 26.81 03/19/2021 9:48 AM CDT Plan of Treatment Not on file Procedures Procedure Name Priority Date/Time Associated Diagnosis Comments HEMOGLOBIN A1C, B Routine 02/04/2016 4:2 3 PM CDT HIV-1/-2 AG AND AB SCREEN Routine 12/29/2015 2:51 PM CDT from Last 3 Months or Most Recently Relevant to Health Maintenance Results * Hemoglobin A1c (02/04/2016 4:23 PM CDT) Hemoglobin A1c, B 5.5 4.0 - 6.0 % [facility] 02/04/2016 4:23 PM CDT 02/04/2016 4:23 PM CDT us Gregorio Alcantara M.D. LAB BLOOD ADD-ON Final Resul t [facility] [address] * HIV-1/-2 Ag and Ab Screen (12/29/2015 2:51 PM CDT) Pathologist [facility] HIV-1/-2 Ag and Ab Screen, S Negative Negative [facility] Comment: Negative result does not rule out HIV infection. If ? acute HIV infection is suspected in a high-risk ? individual, submit plasma specimen for HIV-1 RNA ? quantification test (HIVDQ) and/or HIV-2 DNA/RNA ? test (FHV2Q). ? 12/29/2015 2:51 PM CDT 12/29/2015 2:51 PM CDT us Dorian Sandoval M.D., Ph.D. LAB MICROBIOLOGY - BLOO D ORDERABLES Final Result [facility] [address] [place] [address], [facility] from Last 3 Months or Most Recently Relevant to Health Maintenance Insurance [address] [facility] [place] [id number] [employer] [place] [id number] Care Teams Factory Process Workers Relationship Specialty Start Date End Date Elsewhere, Pcp PCP - General Family Medicine 03/19/21
--- OUTSIDE RECORDS SUMMARY | 2024-05-20 21:53 | XMS_ITS | Encounter Summary ---
Author Organization [place] Address [address] [place] [address]. [place] [address] Care Team Providers Care Alarm Signal Operator Name Role Phone Prabha Rodriguez MD Unavailable Baudilio Pandya Unavailable [phone] Stephanie Vigil MD Primary Care Provider [phone] Geno Mendoza Primary Care Provider Reason for Visit * Reason Onset Date Comments Health Maintenance 03/05/2012 colonoscopy Encounter Details Date Type Department Care Team (Late st Contact Info) Description 03/05/2012 Telephone [facility] [address] [place] [address] Stephanie Vigil MD [address] [facility] [address] [place] [address] Health Maintenance (colonoscopy) Social History Tobacco Use Types Packs/Day Years Used Date Smoking Tobacco: Never Smokeless Tobacco: Never Alcohol Use Standard Drinks/Week Comments No 0 (1 standard drink = 0.6 oz pur e alcohol) Sex and Gender Information Value Date Recorded Sex Assigned at Not on file Gender Identity Not on file Sexual Orientation Not on file documented as of this encounter Miscellaneous Notes * Telephone Encounter - Chanell Stokes - 03/05/2012 1:52 PM CDT Colonoscopy screening schedule: 04/27/2012 at 8:30am, Arriving at 8:00am -- Tammy voss/ Dr. Annie Miller Best Time:anytime Pharmacy Name:[facility] and fax# [phone] Please contact patient to discuss prep and additional instructions. documented in this encounter Plan of Treatment Not on file documented as of this encounter Visit Diagnoses Not on filedocumented in this encounter Care Teams Alarm Signal Operator Relationship Specialty Start Date End Date Stephanie Vigil MD [address] [place], [place] [id number] PCP - General Family Practice 11/14/11 11/17/15 Geno Mendoza [address] [place], [place] [address] PCP - General 11/18/15 Prabha Rodriguez MD [address] [place] [address] 12/10/10 Baudilio Pandya [address] [place] [address] Pain Clinic 11/10/11 documented as of this encounter
--- OUTSIDE RECORDS SUMMARY | 2024-05-20 21:53 | XMS_ITS | Encounter Summary ---
Author Organization [facility] Address [address] [place] [address]. [place] [address] Care Team Providers Care Suture Gauger Name Role Phone [facility] Wendie Primary Care Provider U Prabha Calvillo MD Unavailable Baudilio Pandya Unavailable [phone] Stephanie Vigil MD Primary Care Provider Geno Mendoza Primary Care Provider Reason for Visit * Reason Onset Date Comments Nurse Advice Line 09/17/2011 Encounter Details Date Type Department Care Team (Late st Contact Info) Description 09/17/2011 Telephone [facility] [address] [place] [phone] Stephanie Vigil MD [facility] [facility] [address] [place] [address] Nurse Advice Line Social History Tobacco Use Types Packs/Day Years [...] encounter Miscellaneous Notes * Telephone Encounter - Geno Rush - 12/29/2011 12:05 PM CDT [facility] NurseLine Triage Call Report Patient Name: Oma Gutierrez Call Date & Time: 09/17/2011 9:56:17AM Patient PCP Name: Patient Address: [address] [place] [phone] Patient Date of : 1960 Age: 51 yr. Patient Gender: Female Terrazzo Installer Name: Lindy Bhardwaj Presenting Problem: Oma was told that for a yeast infection by Dr. Chanell Gutierrez that Flucytosine would work and Oma checked with insurance and they will not cover that. Oma was advised to try Ancobo. Oma is wanting Dr. Chanell Gutierrez to be aware of this for Monday, Sep 19. Oma requested FNA to leave a message for Chanell Gutierrez and no there is no urgency over the weekend. No triage. Left message in epic. Triage Note: Guideline Title: No Guideline/Advice Per Reference (Adult) Recommended Disposition: Override Disposition: Call Provider Immediately Question Response Question Note ACTIVATE EMS 911 No SEE ED IMMEDIATELY No CALL PROVIDER IMMEDIATELY Yes Physician Contacted: Physician Instructions: No Care Advice: - MEDICAL HISTORY Conditions: Condition Note: Medication: Medication Note: Allergy: Reaction: Procedure: Procedure Note: documented in this encounter Plan of Treatment Not on file documented as of this encounter Visit Diagnoses Not on filedocumented in this encounter Care Teams Suture Gauger Relationship Specialty Start Date End Date [facility] Wendie PCP - General 11/30/10 11/13/11 Stephanie Vigil MD [address] [place] [address] PCP - General Family Practice 11/14/11 11/17/15 Geno Mendoza [address] [place], [place] [address] PCP - General 11/18/15 Prabha Rodriguez MD [address] [place], [place] [id number] 12/10/10 Baudilio Pandya [address] [place] [id number] Pain Clinic 11/10/11 documented as of this encounter
[2024-05-20 22:05] LABS: Appearance Urine Clear (Clear); Bilirubin Urine Negative (Negative); Blood Urine 1+ (Negative); Color Urine Yellow (Yellow); Glucose Urine Negative (Negative); Ketones Urine Negative (Negative); Leukocyte Esterase Urine Trace (Negative); Nitrite Urine Negative (Negative); Protein Urine Negative (Negative); Specific Gravity Urine 1.025 (1.000-1.030); Urobilinogen Urine 0.2 (0.2-1.0)
[2024-05-20 22:22] LABS: Bacteria Urine Few; Squamous Epithelial Cell Urine Moderate (None-Few)
[2024-05-20] MEDS: CIPROFLOXACIN 250 MG TABLET PO (22:54)
[2024-05-20 22:58] VITALS: BP 125/80; PULSE 71; RESP 16; TEMP 37.2; O2SAT 94
[2024-05-20 22:59] VITALS: BP 125/80; PULSE 71; RESP 16; TEMP 37.2
== END 2024-05-20 22:59 | disposition home or self-care (01) ==
PROVIDERS: Emergency Provider Family Medicine; PCP Family Medicine
DX: M54.9 Dorsalgia, unspecified (principal); N39.0 Urinary tract infection, site not specified
CPT/HCPCS: 81001; 87086; 99283; 99284; A9270